=== PATIENT | female | born 1945 | race Caucasian/White ===

== ENCOUNTER 2018-03-05 10:37 | Emergency (ER) | payer OTHER ==
--- OUTSIDE RECORDS SUMMARY | 2018-03-05 10:40 | XMS REPORT | Summary of Care ---
:1945 Author Organization [facility] Address [address] [place], [place] [address]- Encounter HQ Encntr_alias([facility]) [id number] Date(s): 12/02/16 - 12/02/16 [facility] [address] [place] [address]- [phone] Discharge Disposition: Home or Self Care Attending Physician: Lonnie Abraham MD Referring Physician: Lonnie Abraham MD Vital Signs No data available for this section Problem List No data available for this section Allergies, Adverse Reactions, Alerts No data available for this section Medications No data available for this section Results No data available for this section Immunizations No data available for this section Procedures No data available for this section Social History No data available for this section Assessment and Plan No data available for this section
--- OUTSIDE RECORDS SUMMARY | 2018-03-05 10:40 | XMS REPORT | Continuity of Care Document ---
:1945 Author Organization Interface Problems Problem Status Onset Classification Date Comments Source Date Reported M54.5 M53.3 Active 11/28/19 [facility] 17 LOW BACK PAIN Active [facility] SACROCOCCYGEAL Active [facility] DISORDERS, NOT ELSEWHERE Medications Medication Details Route Status Patient Ordering Order Source Instructions Provider Date Allergies, Adverse Reactions, Alerts Substance Category Reaction Severity Reaction Status Date Comments Source type Reported Immunizations Immunization Date Given Site Status Last Updated Comments Source Results Order Results Value Reference Date Interpretation Comments Source Name Range Spine Spine PROCEDURE: MAGNETIC RESONANCE IMAGING OF THE SACRUM 12/02 - Sacrum wo Sacrum - [facility] contrast contrast MRI MRI REASON FOR EXAM: M54.5, M53.3. Read by: Benson Baron MD Dictated Date/time: 12/02/16 16:16 Electronically Signed by: Benson Baron MD 12/02/16 16:48 FINAL REPORT COMPARISON: Lumbar spine magnetic resonance imaging 12/02/2016. TECHNIQUE: Unenhanced axial, coronal and sagittal MR images of the sacrum were performed. FINDINGS: Findings in the visualized lower lumbar spine are described in the report for the lumbar spine magnetic resonance imaging performed the same day. There are mild degenerative changes of both sa croiliac joints. There is no demonstrable ankylosis or erosion. There is a subcentimeter cyst in the marrow of the medial aspect of the right ilium. There is approximately 1 to 2 mm posterior subluxatio n of the 1st coccygeal segment relative to the sacrum. There is no demonstrable fracture. There is a 7 mm cyst in the right ovary. There is a 1.2 cm cyst in the left ovary. There is trace fluid in the endometrial canal of T1 hyperintensity suggesting a proteinaceous content. There is a 5 mm uterine leiomyoma. There is diverticulosis of the visualized descending and sigmoid colon. There is no demonstrable abnormality of the urinary bladder. There is no demonstrable pelvic free fluid. IMPRESSION: 1. No demonstrable acute abnormality of the sacrum. 2. Mild degenerative changes of the sacroiliac joints. 3. Minimal posterior subluxation of the 1st coccygeal segment relative to the sacrum. 4. Small bilateral ovarian cysts. A short interval follow-up pelvis ultrasound is suggested in approximately 3 months for reassessment. 5. Trace fluid in the endometrial canal and a subcentimeter uterine leiomyoma. 6. Colonic diverticulosis. SL: 13 Spine Spine PROCEDURE: LUMBAR SPINE MAGNETIC RESONANCE IMAGING 12/02 - lumbar wo lumbar [facility] contrast contrast MRI MRI CLINICAL INDICATION: M54.5. Low back pain. Read by: Benson Baron MD Dictated Date/time: 12/02/16 15:34 Electronically Signed by: Benson Baron MD 12/02/16 16:13 FINAL REPORT COMPARISON: None. TECHNIQUE: Unenhanced axial and sagittal MR images of the lumbar spine were performed. FINDINGS: 5 nonrib-bearing lumbar vertebral bodies are assumed. The lumbar vertebral bodies are normally aligned. There are small anterior marginal osteophytes at all levels of the lumbar spine and visu alized lower thoracic spine. There is left-sided spondylolysis at L5. The discs are hydrated. There are acute/subacute compression fractures with marrow edema without retropulsion, the maximal degree of compression deformity estimated at approximately: 45% at T12; 40% at L1; 25% at L2; and 40% a t L3. There is chronic compression fracture of the superior vertebral endplate of L5 with maximal degree of compression deformity estimated at approximately 37% without retropulsion. There is no significant abnormality of the visualized retroperitoneal and paravertebral soft tissues. The conus medullaris terminates at the level of L1. The visualized lower thoracic spinal cord demonstrates normal signal intensity. T12-L1: Mild posterior disc space narrowing. Right posterolateral disc bulging measuring a maximal AP dimension of approximately 3 mm. Mild facet arthropathy. Mild to moderate bilateral foraminal narrowing. No significant spinal stenosis. L1-L2: Mild posterior disc space narrowing. Anterior annular fissure. Bilateral posterolateral disc bulging measuring a maximal AP dimension of approximately 3 mm. Mild facet arthropathy. Mild right for aminal narrowing. Mild to moderate left foraminal narrowing. No significant spinal stenosis. L2-L3: Mild posterior disc space narrowing. Anterior annular fissure. Bilateral posterolateral disc bulging measuring a maximal AP dimension of approximately 3 to 4 mm. Right posterolateral annular fiss ure. Mild facet arthropathy. Mild to moderate right foraminal narrowing. Mild left foraminal narrowing. No significant spinal stenosis. L3-L4: Mild posterior disc space narrowing. Anterior disc bulging. Anterior annular fissure. Broad-based posterior disc bulge/protrusion measuring a maximal AP dimension of approximately 4 mm with an an nular fissure. Moderate facet arthropathy. Mild thickening of the ligamentum flavum. Moderate bilateral foraminal narrowing. Mild to moderate spinal stenosis. L4-L5: Mild posterior disc space narrowing. Anterior annular fissure. Broad -based posterior disc bulging most pronounced in the posterolateral aspects measuring a maximal AP dimension of approximately 3 to 4 mm. Moderate facet arthropathy. Mild to moderate bilateral foraminal narrowing most pronounced medially. Mild spinal stenosis. L5-S1: Mild posterior disc space narrowing. Anterior annular fissure. Broad -based posterior disc bulging most pronounced on the right measuring a maximal AP dimension of approximately 3 to 4 mm. Mild fa cet arthropathy. Mild bilateral foraminal narrowing. No significant spinal stenosis. IMPRESSION: 1. Acute/subacute compression fractures without retropulsion from T12 through L3 as described above with the maximal degree of compression deformity at T12 estimated at 45%. 2. Chronic compression fracture of L5 without retropulsion estimated at 37% . 3. Hermleigh spondylosis and facet arthropathy. 4. Multilevel posterior disc space narrowing, posterior disc bulging/ protrusions and foraminal narrowing as described above. 5. Mild to moderate spinal stenosis at L3-L4. 6. Mild spinal stenosis at L4-L5. 7. Left-sided spondylolysis at L5. SL: 13 Vital Signs Vital Sign Value Date Comments Source Encounters Location Location Encounter Encounter Reason Attending ADM DC Status Source Details Type Number For Provider Date Date Visit [facility] [id number] Lonnie 12/02 12/03 RICHY Abraham /2016 [facility] Procedures Procedure Code Date Perfomer Comments Source
--- NOTE | 2018-03-05 11:56 | ER ---
Nurse's Notes [facility] Name: Trisha Senior Age: 72 yrs Sex: Female : 1945 Arrival Date: 03/05/2018 Time: 10:41 Bed 7 Private MD: Kendrick Amaya E Diagnosis: Cutaneous abscess of buttock Presentation: 03/05 10:42 Presenting complaint: Patient states: i have a pimple size abscess on my R buttocks hj that's been there for weeks and its getting bigger and i tried to pop it up and i cant, its hard now; reports on and off fever; denies nausea and vomiting;. Transition of care: patient was not received from another setting of care. Onset of symptoms was March 05, 2018. Risk Assessment: Do you want to hurt yourself or someone else? Patient reports no desire to harm self or others. Initial Sepsis Screen: Does the patient meet any 2 criteria? No. Patient's initial sepsis screen is negative. Does the patient have a suspected source of infection? Yes: Skin breakdown/wound. Care prior to arrival: None. 10:42 Method Of Arrival: Ambulatory 10:42 Acuity: DAVID 4 hj Triage Assessment: 10:46 General: Appears in no apparent distress. uncomfortable, Behavior is calm, cooperative, hj appropriate for age. Pain: Complains of pain in right gluteus ethel Pain currently is 5 out of 10 on a pain scale. Historical: - Allergies: 10:46 No Known Allergies; hj - Home Meds: 10:46 Albuterol Inhl [Active]; lorazepam 1 mg Oral tab [Active]; propranolol 40 mg Oral tab 1 hj tab 2 times per day [Active]; - PMHx: 10:46 Anxiety; COPD; hj - PSHx: 10:46 Knee surgery; Tubal ligation; hj - Immunization history:: Adult Immunizations not up to date. - Social history:: Smoking status: Patient uses tobacco products, smokes one-half pack cigarettes per day, Patient uses alcohol, but reports only rare drinking. - Ebola Screening: : Patient negative for fever greater than or equal to 101.5 degrees Fahrenheit, and additional compatible Ebola Virus Disease symptoms Patient denies exposure to infectious person Patient denies travel to an Ebola-affected area in the 21 days before illness onset. - Family history:: not pertinent. Screenin:47 Abuse screen: Denies threats or abuse. Denies injuries from another. Nutritional hj screening: No deficits noted. Tuberculosis screening: No symptoms or risk factors identified. Fall Risk None identified. Assessment: 11:00 General: Appears in no apparent distress. uncomfortable, Behavior is calm, cooperative, jl7 appropriate for age. Pain: Complains of pain in right gluteus ethel Pain does not radiate. Pain currently is 5 out of 10 on a pain scale. Neuro: Level of Consciousness is awake, alert, obeys commands, Oriented to person, place, time, situation. Cardiovascular: Patient's skin is warm and dry. Respiratory: Airway is patent Respiratory effort is even, unlabored, Respiratory pattern is regular, symmetrical. Derm: Skin is pink, warm \T\ dry. Abscess located on right gluteus ethel is quarter sized, has no drainage, is red. 12:00 Reassessment: Patient and/or family updated on plan of care and expected duration. Pain jl7 level reassessed. Patient is alert, oriented x 3, equal unlabored respirations, skin warm/dry/pink. 12:15 Reassessment: Pt will be discharged once Dr. Escalante lances abscess. jl7 Vital Signs: 10:47 BP 141 / 85; Pulse 83; Resp 18; Temp 98.4(O); Pulse Ox 96% on R/A; Weight 62.6 kg; hj Height 5 ft. 6 in. (167.64 cm); Pain 5/10; 13:25 BP 139 / 86; Pulse 80; Resp 16; Pulse Ox 96% ; jl7 10:47 Body Mass Index 22.28 (62.60 kg, 167.64 cm) ED Course: 10:41 Patient arrived in ED. mr 10:42 Kendrick Amaya MD is Private Physician. mr 10:44 Triage completed. hj 10:47 Arm band placed on left wrist. hj 10:47 Patient has correct armband on for positive identification. Placed in gown. Bed in low hj position. Call light in reach. Side rails up X 1. 10:51 Lennox Tinajero RN is Primary Nurse. jl7 10:57 Kolby Escalante MD is Attending Physician. ele 11:55 Kendrick Amaya MD is Referral Physician. eel 11:55 Valentin Neil MD is Referral Physician. ele 12:45 Assist provider with I \T\ D: of an abscess on right buttocks Set up I\T\D tray. Performed jl 7 by Kolby Escalante MD Wound packed. iodoform gauze, Dressing with 4X4s, Patient tolerated well. 13:14 Patient did not have IV access during this emergency room visit. jl7 Administered Medications: 12:09 Drug: Bactrim (160 mg-800 mg (DS) 1 tablet Route: PO; jl7 13:12 Follow up: Response: No adverse reaction jl7 12:09 Drug: Doxycycline 200 mg Route: PO; jl7 13:12 Follow up: Response: No adverse reaction 7 12:40 Drug: Lidocaine-Epinephrine -1%: (1:100,000) 10 ml {Note: administered by Dr. ronnell Escalante.} Volume: 20 ml; Route: Infiltration; 13:12 Follow up: Response: No adverse reaction jl7 Outcome: 11:56 Discharge ordered by . [facility] 13:24 Discharged to home ambulatory. 7 13:24 Condition: stable 13:24 Discharge instructions given to patient, Instructed on discharge instructions, follow up and referral plans. medication usage, Demonstrated understanding of instructions, follow-up care, medications, Prescriptions given X 3. 13:26 Patient left the ED. jl7 Signatures: Kolby Escalante MD MD cha Rivera, Maria mr Joaquin, Henry, RN RN Lennox Hayes RN RN jl7 Corrections: (The following items were deleted from the chart) 10:45 10:42 Presenting complaint: Patient states: i have a pimple size abscess on my R hj buttocks and its getting bigger and i tried pop it up and i cant, its hard now; reports on and off fever; denies nausea and vomiting; 10:49 10:47 Pulse 83bpm; Resp 18bpm; Pulse Ox 96% RA; Temp 98.4F Oral; 62.6 kg; Height 5 ft. hj 6 in.; BMI: 22.2; Pain 5/10; hj 11:17 10:42 Presenting complaint: Patient states: i have a pimple size abscess on my R hj buttocks that's been there for weeks and its getting bigger and i tried pop it up and i cant, its hard now; reports on and off fever; denies nausea and vomiting; 13:12 12:40 Lidocaine-Epinephrine -1%: (1:100,000) 10 ml 20 ml Infiltration 20 ml jl7 jl7
--- NOTE | 2018-03-05 11:57 | EDPHYS ---
Physician Documentation [facility] Name: Trisha Senior Age: 72 yrs Sex: Female : 1945 Arrival Date: 03/05/2018 Time: 10:41 Bed 7 Private MD: Kendrick Amaya E ED Physician Kolby Escalante HPI: 03/05 11:52 This 72 yrs old Female presents to ER via Ambulatory with complaints of ele Abscess. 11:52 The patient presents with an abscess of the buttocks, The patient presents with ele cellulitis of the buttocks, the patient presents with a swollen area of the buttocks. Description: The affected area is small, localized, erythematous. Onset: The symptoms/episode began/occurred 3 day(s) ago. Possible cause(s): unknown. Associated signs and symptoms: The patient has no apparent associated signs or symptoms. Modifying factors: the symptoms are alleviated by remaining still, sitz bath, the symptoms are aggravated by movement. Severity of symptoms: At their worst the symptoms were mild, in the emergency department the symptoms are unchanged. The patient has not experienced similar symptoms in the past. Historical: - Allergies: 10:46 No Known Allergies; hj - Home Meds: 10:46 Albuterol Inhl [Active]; lorazepam 1 mg Oral tab [Active]; propranolol 40 mg Oral tab 1 hj tab 2 times per day [Active]; - PMHx: 10:46 Anxiety; COPD; hj - PSHx: 10:46 Knee surgery; Tubal ligation; hj - Immunization history:: Adult Immunizations not up to date. - Social history:: Smoking status: Patient uses tobacco products, smokes one-half pack cigarettes per day, Patient uses alcohol, but reports only rare drinking. - Ebola Screening: : Patient negative for fever greater than or equal to 101.5 degrees Fahrenheit, and additional compatible Ebola Virus Disease symptoms Patient denies exposure to infectious person Patient denies travel to an Ebola-affected area in the 21 days before illness onset. - Family history:: not pertinent. ROS: 11:52 Constitutional: Negative for fever, chills, and weight loss, Eyes: Negative for injury, ele pain, redness, and discharge, ENT: Negative for injury, pain, and discharge, Neck: Negative for injury, pain, and swelling, Cardiovascular: Negative for chest pain, palpitations, and edema, Respiratory: Negative for shortness of breath, cough, wheezing, and pleuritic chest pain, Abdomen/GI: Negative for abdominal pain, nausea, vomiting, diarrhea, and constipation, Back: Negative for injury and pain, : Negative for injury, bleeding, discharge, and swelling, MS/Extremity: Negative for injury and deformity, Neuro: Negative for headache, weakness, numbness, tingling, and seizure, Psych: Negative for depression, anxiety, suicide ideation, homicidal ideation, and hallucinations, Allergy/Immunology: Negative for hives, rash, and allergies, Endocrine: Negative for neck swelling, polydipsia, polyuria, polyphagia, and marked weight changes, Hematologic/Lymphatic: Negative for swollen nodes, abnormal bleeding, and unusual bruising. 11:52 Skin: Positive for swelling, of the buttocks. Exam: 11:52 Constitutional: This is a well developed, well nourished patient who is awake, alert, ele and in no acute distress. Head/Face: Normocephalic, atraumatic. Eyes: Pupils equal round and reactive to light, extra-ocular motions intact. Lids and lashes normal. Conjunctiva and sclera are non-icteric and not injected. Cornea within normal limits. Periorbital areas with no swelling, redness, or edema. ENT: Nares patent. No nasal discharge, no septal abnormalities noted. Tympanic membranes are normal and external auditory canals are clear. Oropharynx with no redness, swelling, or masses, exudates, or evidence of obstruction, uvula midline. Mucous membranes moist. Neck: Trachea midline, no thyromegaly or masses palpated, and no cervical lymphadenopathy. Supple, full range of motion without nuchal rigidity, or vertebral point tenderness. No Meningismus. Chest/axilla: Normal chest wall appearance and motion. Nontender with no deformity. No lesions are appreciated. Cardiovascular: Regular rate and rhythm with a normal S1 and S2. No gallops, murmurs, or rubs. Normal PMI, no JVD. No pulse deficits. Respiratory: Lungs have equal breath sounds bilaterally, clear to auscultation and percussion. No rales, rhonchi or wheezes noted. No increased work of breathing, no retractions or nasal flaring. Abdomen/GI: Soft, non-tender, with normal bowel sounds. No distension or tympany. No guarding or rebound. No evidence of tenderness throughout. Back: No spinal tenderness. No costovertebral tenderness. Full range of motion. Female : Normal external genitalia. MS/ Extremity: Pulses equal, no cyanosis. Neurovascular intact. Full, normal range of motion. Neuro: Awake and alert, GCS 15, oriented to person, place, time, and situation. Cranial nerves II-XII grossly intact. Motor strength 5/5 in all extremities. Sensory grossly intact. Cerebellar exam normal. Normal gait. Psych: Awake, alert, with orientation to person, place and time. Behavior, mood, and affect are within normal limits. 11:52 Skin: abscess, that is small, cellulitis, that is minimal, that is mild, induration, that is moderate is noted. Vital Signs: 10:47 BP 141 / 85; Pulse 83; Resp 18; Temp 98.4(O); Pulse Ox 96% on R/A; Weight 62.6 kg; Height 5 ft. 6 in. (167.64 cm); Pain 5/10; 13:25 BP 139 / 86; Pulse 80; Resp 16; Pulse Ox 96% ; jl7 10:47 Body Mass Index 22.28 (62.60 kg, 167.64 cm) Procedures: 11:52 I \T\ D: Incision and drainage was performed for an abscess of the right Prepped with [facility] Betadine, Anesthetized with 10 ml's 1% Lidocaine w/ Epi. Incised with #11 blade. Drained small amount moderate amount purulent fluid. Packed with iodoform gauze, Dressing: non-Adherent dressing, the patient tolerated the procedure well. MDM: 10:57 Patient medically screened. [facility] 11:52 Data reviewed: vital signs, nurses notes, lab test result(s). [facility] 03/05 11:52 Order name: Blood Glucose Level; Complete Time: 12:09 [facility] 03/05 11:52 Order name: Dressing - Wound; Complete Time: 13:11 [facility] 03/05 11:52 Order name: Gloves, Sterile; Complete Time: 12:09 [facility] 03/05 11:52 Order name: Setup Suture Tray; Complete Time: 12:09 [facility] Administered Medications: 12:09 Drug: Bactrim (160 mg-800 mg (DS) 1 tablet Route: PO; [facility] 13:12 Follow up: Response: No adverse reaction [facility] 12:09 Drug: Doxycycline 200 mg Route: PO; jl7 13:12 Follow up: Response: No adverse reaction [facility] 12:40 Drug: Lidocaine-Epinephrine -1%: (1:100,000) 10 ml {Note: administered by Dr. ronnell Escalante.} Volume: 20 ml; Route: Infiltration; 13:12 Follow up: Response: No adverse reaction jl7 Disposition: 03/05/18 11:56 Discharged to Home. Impression: Cutaneous abscess of buttock. - Condition is Stable. - Discharge Instructions: Abscess, Incision and Drainage, Sitz Bath, Abscess, [id number]. - Prescriptions for Tylenol- Codeine #3 300-30 mg Oral Tablet - take 2 tablet by ORAL route every 6 hours As needed; 30 tablet. Doxycycline Hyclate 100 mg Oral Tablet - take 1 tablet by ORAL route every 12 hours; 20 tablet. Bactrim DS 800- 160 mg Oral Tablet - take 1 tablet by ORAL route every 12 hours for 10 days; 20 tablet. - Medication Reconciliation Form, Thank You Letter, Antibiotic Education, Prescription Opioid Use form. - Follow up: Kendrick Amaya MD; When: 2 - 3 days; Reason: Recheck today's complaints, Continuance of care, Re-evaluation by your physician. Follow up: Valentin Neil MD; When: 2 - 3 days; Reason: Recheck today's complaints, Continuance of care, Re-evaluation by your physician. - Problem is new. - Symptoms have improved. Signatures: Kolby Escalante MD MD cha Joaquin, Henry, RN RN hj Leal, Jahala, RN RN jl7 Corrections: (The following items were deleted from the chart) 13:26 11:56 03/05/2018 11:56 Discharged to Home. Impression: Cutaneous abscess of buttock. jl7 Condition is Stable. Forms are Medication Reconciliation Form, Thank You Letter, Antibiotic Education, Prescription Opioid Use. Follow up: Kendrick Amaya; When: 2 - 3 days; Reason: Recheck today's complaints, Continuance of care, Re-evaluation by your physician. Follow up: Valentin Neil; When: 2 - 3 days; Reason: Recheck today's complaints, Continuance of care, Re-evaluation by your physician. Problem is new. Symptoms have improved. ele
[2018-03-05] MEDS ORDERED: LIDOCAINE 1% MPF 5 ML VIAL ONE (12:05)
[2018-03-05] MEDS ORDERED: DOXYCYCLINE 100 MG CAP PO ONE (12:05)
[2018-03-05] MEDS ORDERED: SMZ./TMP. 800/160 MG TABLET ONE (12:05)
[2018-03-05] MEDS ORDERED: LIDOCAINE 1% W/EPI 1:100,000 MDV 50 ML VIAL ONE (12:40)
[2018-03-05 13:30] VITALS: TEMP 98.4; O2SAT 96
[2018-03-05 13:31] VITALS: BP 139/86
== END 2018-03-05 13:26 | disposition home or self-care (01) ==
LOC: ER 10:37
PROC: 0H98XZZ Drainage of Buttock Skin, External Approach (ICD-10-PCS; principal; 2018-03-05)
DX: L02.31 Cutaneous abscess of buttock (principal); J44.9 Chronic obstructive pulmonary disease, unspecified; F17.210 Nicotine dependence, cigarettes, uncomplicated
CPT/HCPCS: 82962; 99283

== ENCOUNTER 2019-08-01 10:27 | Emergency (ER) | payer OTHER ==
--- OUTSIDE RECORDS SUMMARY | 2019-08-01 10:29 | XMS REPORT ---
:1945 [facility] Address [address] [place] [address] [address]. [address] [place] [address] Care Team Providers Name Role Phone Unavailable Unavailable Unavailable Problems This patient has no known problems. Allergies, Adverse Reactions, Alerts This patient has no known allergies or adverse reactions. Medications This patient has no known medications.
--- OUTSIDE RECORDS SUMMARY | 2019-08-01 10:29 | XMS REPORT | Summary of Care ---
:1945 Author Organization [address] [address] Care Team Providers Name Role Phone Kendrick Amaya Primary Care Provider Encounter Details Date Type Department Care Team Description 03/19/2019 Case Management [facility] Physical Nina Florence, CHRISTIANO Therapy- [address] 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 [address] [place] [address] [address] [place] [phone] Allergies No Known Allergiesdocumented as of this encounter (statuses as of 03/19/2019) Medications Medication Sig Dispensed Refills Start Date End Date Status LORazepam (ATIVAN) 1 Take 1 mg by 0 Active mg tablet mouth. PROPRANOLOL HCL Take by mouth. 0 Active (PROPRANOLOL ORAL) ondansetron 4 mg Take 1 tablet by 20 tablet 0 09/08/2017 Active tablet mouth every 8 (eight) hours as needed for Nausea and Vomiting (N/V). documented as of this encounter (statuses as of 03/19/2019) Active Problems No known active problemsdocumented as of this encounter (statuses as of 2018) Social History Tobacco Use Types Packs/Day Years Used Date Never Assessed Sex Assigned at Date Recorded Not on file Job Start Date Occupation Industry Not on file Not on file Not on file Travel History Travel Start Travel End No recent travel history available. documented as of this encounter Last Filed Vital Signs Not on filedocumented in this encounter Progress Notes Nina Florence PTA - 03/19/2019 1:46 PM CDT7/ Appointment time: 1:00 PM Pt arrived at: 1:18 PM Physical Therapy Missed Visit Pt missed a scheduled therapy appointment today. Pt states she was late because she had an errand to run first. Pt is aware of next scheduled appointment. Thursday, March 21, 2019 at 1:00 PM. Nina Florence PTA [place] Lic#[id number] Supervised by: Rubina Long PT [facility] Dept. [phone] (phone) documented in this encounter Plan of Treatment Date Type Specialty Care Team Description 03/21/2019 Ancillary Visit Physical Therapy Juan M Washburn MD [address] [facility] [address] [place] [address] [phone] Nina Florence PTA [address] [place] [address] 03/26/2019 Ancillary Visit Physical Therapy Nina Florence PTA [address] [place] [address] 03/28/2019 Ancillary Visit Physical Therapy Nina Florence, [employer]ITORY MANAGER [address] [place] [address] Health Maintenance Due Date Last Done Comments DTaP,Tdap,and Td Vaccines (1 - Tdap) 1965 COLONOSCOPY 1996 Zoster Recombinant Vaccine (SHINGRIX) (1 of 2) 1996 MAMMOGRAM 12/23/2009 12/23/2008 Medicare Wellness Visit 2011 Osteoporosis Screening 2011 PNEUMOCOCCAL VACCINES 65+ (1 of 2 - PCV13) 2011 INFLUENZA VACCINE 04/20/2019 HEPATITIS C (HCV) SCREEN Completed 09/03/2008 documented as of this encounter Results Not on filedocumented in this encounter Insurance Payer Benefit Plan Subscriber ID Effective Phone Address Type / Group Dates [facility] [id number] 2018-Pres Medicare Adv HEALTHCARE COMPLETE ent PPO MEDICARE CHOICE [facility] MEDICAID OF xxxxxxxxx 2019-Pres [phone] [address] Medicaid [place] ent [id number] [place] [address] documented as of this encounter
--- OUTSIDE RECORDS SUMMARY | 2019-08-01 10:29 | XMS REPORT | Summary of Care ---
:1945 Author Organization [facility] Address [address] [place] [address] Care Team Providers Name Role Phone Kendrick Amaya Primary Care Provider Reason for Visit Reason Comments Follow-up (Routine) Status Reason Specialty Diagnoses / Referred By Referred To Procedures Contact Contact Authorized Physical Therapy Procedures Kendrick Amaya [facility], CONSULT/REFERRAL E PT PHYSICAL THERAPY [address] [place] PHYSICAL [facility] THERAPY EVALUATION BREN [address] [place], [place] LOW COMPLEX 20 [place], [address] [place] [address] [place] PHYSICAL Phone: THERAPY EVALUATION [phone] MOD COMPLEX 30 Fax: [facility] [phone] [place] PHYSICAL THERAPY EVALUATION HIGH COMPLEX 45 [place] THERAPEUTIC EXERCISES [place] NEUROMUSC REEDUCAT,1+ AREAS, EA 15 MIN [place] MANUAL THER TECH,1+REGIONS,EA 15 MIN [place] THERAPEUT ACTVITY DIRECT PT CONTACT EACH 15 MIN [place] SELF-CARE/HOME MGMT TRAINING EACH 15 MINUTES INITIAL EVALUATION Encounter Details Date Type Department Care Team Description 03/21/2019 Ancillary Visit [facility] Juan M Washburn MD [address] [facility] BC8930 [place], [place] [id number] Neck pain (Primary Dx); Physical Therapy- Brigitte Parra, PT [address] [place] [id number] Chronic pain of both shoulders; [place] Upper back pain, chronic; 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 Muscle weakness (generalized); Building Poor posture [address] [place] [address] [address] [place] [address] Allergies No Known Allergiesdocumented as of this encounter (statuses as of 03/26/2019) Medications Medication Sig Dispensed Refills Start Date [...] as of this encounter (statuses as of 03/26/2019) Active Problems No known active problemsdocumented as [...] on filedocumented in this encounter Progress Notes Brigitte Parra, PT - 03/21/2019 1:00 PM CDT Physical Therapy Outpatient Progress Note Date: March 21, 2019 Time: 1:08 PM Diagnosis: M54.2 Neck pain (primary encounter diagnosis) M25.511, G89.29, M25.512 Chronic pain of both shoulders M54.9, G89.29 Upper back pain, chronic M62.81 Muscle weakness (generalized) R29.3 Poor posture IDENTIFYING DATA: Patient name: Trisha Senior : 1945 Primary care physician: Kendrick Amaya? ?? S: Patient reports does not rate/10 pain before tx, and does not rate/10 after tx. States everyday is busy.Today she got up eat breakfast and run errands, no report of pain. O: See documentation flowsheet for treatment details. Exercise Flow Sheet Precautions:Fall POC Due:Apr 25 or visit Date: 03/14 03/21 Bike L2-6' Stretching: SKC 5"x 10ea DKC Piriformis 30" x 3 HS stretch 3 x 30" Trunk Rotations 10x ea Exercises: Pelvic Tilts 10x Bridging 10x Marching with Abd bracing 10xea Dying bug-alt UE/LE 10x SLR's 10x Prone on elbows Prone press ups Lat Pull Downs Rows Nigerian Ball: Seated on ball with tilt Alt UE Alt LE/Marching Alt UE/LE Bridging w/ feet on ball Prone walkout plank SI Mobs (prn) MHP (prn) 10'neck/LB CP (prn) Provider Initials Re-eval MCB 7 MCB 8 A: Patient has difficulty in breathing occasionally during therapeutic exercises that requires rest and per patient she has COPD but able to perform therapeutic exercises slower than usual. After PT patient appears surprised and upset of not having ultrasound today and PT explained to patient that no ultrasound today for it's not indicated for no complaint of pain,we work on exercises and time didn'tallow.She also stated she feels the same when she came in.Pt with guarded progress toward PT goals overall. Presents with guarded response to services provided today. Patient made an statement to information receptionist after PT as follows " She (PT) didn't do what she's supposed to do". P: Physical Therapy with emphasis on Functional mobility training, Modalities ( PRN),Gait training, Patient/Family/Caregiver education, Therapeutic exercise, Manual Therapy (PRN),Neuromuscular Re-Education to address Decreased strength, ROM deficits, Safety awareness deficits and Pain to restore pt's ability increase flexibility, strength of the trunk BUE and BLE Frequency: 1- 2x/wk Duration: 4-6 wks Patient- Family Teaching: Patient provided with preferred teaching of verbal information on POC. Shows readiness to learn. Verbal instruction teaching provided. Individual is able to read and verbalizes understanding of teaching provided. Total Timed Tx Codes in Minutes: 52 Min Total Treatment Time in Minutes: 55Min Brigitte Parra,PT [place] License: [id number] documented in this encounter Plan of Treatment Date Type Specialty Care Team Description 03/26/2019 Ancillary Visit [place] [address] [place] [phone] Nina Florence, [facility] [address] [place] [address] 03/28/2019 Ancillary Visit Physical Therapy Oneil Esquivel MD [address] [place] [phone] Nina Florence, EQUIPMENT MANAGER [address] [place] [address] 04/02/2019 Ancillary Visit Physical Therapy Dinora Pacheco, PT [address] [place] [address] 04/04/2019 Ancillary Visit Physical Therapy Nina Florence, EQUIPMENT MANAGER [address] [place] [address] Health Maintenance Due Date Last Done Comments [...] Results Not on filedocumented in this encounter Visit Diagnoses Diagnosis Neck pain - Primary Cervicalgia Chronic pain of both shoulders Pain in joint, shoulder region Upper back pain, chronic Backache, unspecified Muscle weakness (generalized) Poor posture Abnormal posture documented in this encounter Insurance Payer Benefit Plan Subscriber ID Effective Phone Address Type / Group Dates UNITED UHC MEDICARE [id number] 2018-Pres Medicare Adv HEALTHCARE COMPLETE ent PPO MEDICARE CHOICE ADVANTAGE [facility] MEDICAID OF xxxxxxxxx 2019-Pres [phone] Medicaid [place] ent [id number] [place] [address] [phone] (Work) documented as of this encounter
--- OUTSIDE RECORDS SUMMARY | 2019-08-01 10:29 | XMS REPORT | Summary of Care ---
:1945 Author Organization [facility] Address [address] [place] [address] Care Team Providers Name Role Phone Kendrick Amaya Primary Care Provider Reason for Visit Reason Comments Follow-up (Routine) Status Reason Specialty Diagnoses / Referred By Referred To Procedures Contact Contact Authorized Physical Therapy Procedures Kendrick Amaya [facility], CONSULT/REFERRAL E PT PHYSICAL THERAPY [address] [place] PHYSICAL [facility] THERAPY EVALUATION BREN [address] [place], [place] LOW COMPLEX 20 [place], [address] [place] [address] [place] PHYSICAL Phone: THERAPY EVALUATION [phone] MOD COMPLEX 30 Fax: [facility] [phone] [place] PHYSICAL THERAPY EVALUATION HIGH COMPLEX 45 [place] THERAPEUTIC EXERCISES [place] NEUROMUSC REEDUCAT,1+ AREAS, EA 15 MIN [place] MANUAL THER TECH,1+REGIONS,EA 15 MIN [place] THERAPEUT ACTVITY DIRECT PT CONTACT EACH 15 MIN [place] SELF-CARE/HOME MGMT TRAINING EACH 15 MINUTES INITIAL EVALUATION Encounter Details Date Type Department Care Team Description 04/04/2019 Ancillary Visit [facility] Oneil Esquivel MD [address] [place] [address] Chronic pain of both shoulders (Primary Dx); Physical Therapy- Nina Florence, [facility] [address] [place] [address] Upper back pain, chronic; Inderjit Muscle weakness (generalized); 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 Poor posture Building [address] [place] [address] [address] [place] [phone] Allergies No Known Allergiesdocumented as of this encounter (statuses as of 04/04/2019) Medications Medication Sig Dispensed Refills Start Date [...] as of this encounter (statuses as of 04/04/2019) Active Problems No known active problemsdocumented as [...] filedocumented in this encounter Progress Notes Nina Florence, OPTICAL INSTRUMENT ASSEMBLER - 04/04/2019 1:00 PM CDT Physical Therapy Outpatient Progress Note Date: April 04, 2019 Time: 1:00 PM Diagnosis: M25.511, G89.29, M25.512 Chronic pain of both shoulders (primary encounter diagnosis) M54.9, G89.29 Upper back pain, chronic M62.81 Muscle weakness (generalized) R29.3 Poor posture IDENTIFYING DATA: Patient name: Trisha Senior : 1945 Primary care physician: Kendrick Amaya? ?? S: Patient does not rate pain before tx. During the ultrasound, patient requested it be performed on the left side of her neck since she had been having pain there. O: See documentation flowsheet for treatment details. Exercise Flow Sheet Precautions:Fall, Memory POC Due: Next visit Date: 03/14 03/21 03/26 04/04 Bike L2-6' NS L2 x6' Stretching: SKC 5"x 10ea 3x30"ea 3x30"ea DKC Piriformis 30" x 3 3x30"ea 3x30"ea HS stretch 3 x 30" 3x30"ea 3x30"ea Trunk Rotations 10x ea --- Exercises: Pelvic Tilts 10x 5"x10 5"x10 Bridging 10x x10 x10 Marching with Abd bracing 10xea x10ea x10ea Dying bug-alt UE/LE 10x -- --- SLR's 10x x10ea x10ea Prone on elbows Prone press ups Lat Pull Downs Rows [place] Ball: Seated on ball with tilt Alt UE Alt LE/Marching Alt UE/LE US to thoracic back 5' @ 1MHz 1 Wcm2 5' @ 1MHz 1 Wcm2 neck MHP (prn) 10'neck/LB 10' LB &neck 10' LB &neck CP (prn) Provider Initials Re-eval MCB 02/17 MCB 03/21 MB 04/22 MB 05/23 HEP: Continue current HEP as previously ordered. Pt exhibits noncompliance because she needs too many instructions for performance of stretches. A: Patient has occasional difficulty breathing during supine exercises that causes her to cough(smoker's cough). US last 5 min of session to neck as requested by pt. Pt required cues for stretches and exercises. Pt tolerated treatment fair+. Reassessment at next visit. P: Physical Therapy with emphasis on Functional mobility training, Modalities ( PRN),Gait training, Patient/Family/Caregiver education, Therapeutic exercise, Manual Therapy (PRN),Neuromuscular Re-Education to address Decreased strength, ROM deficits, Safety awareness deficits and Pain to restore pt's ability increase flexibility, strength of the trunk BUE and BLE Will add/advance exercises as able. Frequency: 1- 2x/wk Duration: 4 weeks Patient- Family Teaching: Patient provided with preferred teaching of verbal information on POC. Shows readiness to learn. Verbal instruction teaching provided. Individual is able to read and verbalizes understanding of teaching provided. Nina Florence PTA [place] Lic#[id number] Supervised by: Dinora Hernandez PT [facility] Dept. [phone] (phone) Total Timed Tx Codes in Minutes: 40 Min Total Treatment Time in Minutes: 50 Min documented in this encounter Plan of Treatment Date Type Specialty Care Team Description 04/11/2019 Ancillary Visit Physical Therapy Brigitte Parra, PT [address] [place] [address] Health Maintenance Due Date Last Done Comments DTaP,Tdap,and Td Vaccines (1 - Tdap) 1965 COLONOSCOPY 1996 Zoster Recombinant Vaccine (SHINGRIX) (1 of 2) 1996 MAMMOGRAM 12/23/2009 12/23/2008 Medicare Wellness Visit 2011 Osteoporosis Screening 2011 PNEUMOCOCCAL VACCINES 65+ (1 of 2 - PCV13) 2011 INFLUENZA VACCINE (#1) 2019 HEPATITIS C (HCV) SCREEN Completed 09/03/2008 documented as of this encounter Results Not on filedocumented in this encounter Visit Diagnoses Diagnosis Chronic pain of both shoulders - Primary Pain in joint, shoulder region Upper back pain, chronic Backache, unspecified Muscle weakness (generalized) Poor posture Abnormal posture documented in this encounter Insurance Payer Benefit Plan Subscriber ID Effective Phone Address Type / Group Dates UNITED UHC MEDICARE [id number] 2018-Pres Medicare Adv HEALTHCARE COMPLETE ent PPO MEDICARE CHOICE ADVANTAGE [facility] MEDICAID OF xxxxxxxxx 2019-Pres [phone] Medicaid [place] ent [id number] [place] [address] [phone] (Work) documented as of this encounter
--- OUTSIDE RECORDS SUMMARY | 2019-08-01 10:29 | XMS REPORT | Summary of Care ---
:1945 Author Organization [facility] Address [address] [place] [address] Care Team Providers Name Role Phone Kendrick Amaya Primary Care Provider Reason for Visit Reason Comments Re-evaluation (Routine) Status Reason Specialty Diagnoses / Referred By Referred To Procedures Contact Contact Authorized Physical Therapy Procedures Kendrick Amaya [facility], CONSULT/REFERRAL E PT PHYSICAL THERAPY [address] [place] PHYSICAL [facility] THERAPY EVALUATION BREN [address] [place], [place] LOW COMPLEX 20 [place], [address] [place] [address] [place] PHYSICAL Phone: THERAPY EVALUATION [phone] MOD COMPLEX 30 Fax: [facility] [phone] [place] PHYSICAL THERAPY EVALUATION HIGH COMPLEX 45 [place] THERAPEUTIC EXERCISES [place] NEUROMUSC REEDUCAT,1+ AREAS, EA 15 MIN [place] MANUAL THER TECH,1+REGIONS,EA 15 MIN [place] THERAPEUT ACTVITY DIRECT PT CONTACT EACH 15 MIN [place] SELF-CARE/HOME MGMT TRAINING EACH 15 MINUTES INITIAL EVALUATION Encounter Details Date Type Department Care Team Description 03/14/2019 Ancillary Visit [facility] Oneil Esquivel MD [address] [place] [address] Neck pain (Primary Dx); Physical Therapy- Brigitte Parra, PT [address] [place] [id number] Chronic pain of both shoulders; [place] Upper back pain, chronic; 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 [place] [phone] Allergies No Known Allergiesdocumented as of this [...] encounter Progress Notes Brigitte Parra, PT - 03/14/2019 1:00 PM CDT Exercise Flow Sheet Diagnosis: M54.2 Neck pain (primary encounter diagnosis) M25.511, G89.29, M25.512 Chronic pain of both shoulders M54.9, G89.29 Upper back pain, chronic M62.81 Muscle weakness (generalized) R29.3 Poor posture Precautions:Fall POC Due:Apr 25 or visit Date: 03/14 Stretching: C DKC Piriformis HS stretch Trunk Rotations Exercises: Pelvic Tilts Bridging Marching with Abd bracing Dying bug-alt UE/LE SLR's Prone on elbows Prone press ups Lat Pull Downs Rows English Ball: Seated on ball with tilt Alt UE Alt LE/Marching Alt UE/LE Bridging w/ feet on ball Prone walkout plank SI Mobs (prn) MHP (prn) CP (prn) Provider Initials Re-eval MCB Brigitte Cano PT - 03/14/2019 1:00 PM CDT OP PT Re-evaluation & Progress Note Date: March 14, 2019 Time: 1:06 PM Diagnosis: M54.2 Neck pain (primary encounter diagnosis) M25.511, G89.29, M25.512 Chronic pain of both shoulders M54.9, G89.29 Upper back pain, chronic M62.81 Muscle weakness (generalized) R29.3 Poor posture IDENTIFYING DATA: Patient name: Trisha Senior : 1945 Primary care physician: Kendrick Amaya? Precautions: Fall Number of Treatments To date: 7 S: Patient stated that she has pain on her back and neck. Patient didn't rate pain. Per patient ultrasound/hot packs helps with her neck/back pain. O: Patient came in to PT without AD. Cognition: Alert, Oriented x 3 Initial Evaluation Measurements; ROM: (P=Pain) (Note ROM) Neck Flex WFL Ext WFL Retraction WFL Protraction WFL R L Rotation WFL WFL Sidebend WFL WFL Side glide NT NT Muscle Test: Neck R L Flexion 4/5 4/5 Extension 4/5 4/5 Rotation 4/5 4/5 Side Bend 4/5 4/5 Special Tests Compression: (-) Shoulder Evaluation Observation: Palpation: TTP on neck, both shoulder and upper back Bony prominences: WFL Crepitus: none Skin: intact Posture: kyphotic,stooped Dominate UE: RUE Position ROM Shoulder Right Left Pain Manual Muscle Test Right Left sitting Flexion WFL WFL (+) R>L Flexors 4/5 4/5 Extension WFL WFL Extensors 4/5 4/5 Abduction WFL WFL Abductors 4/5 4/5 Adduction WFL WFL Adductions 4/5 4/5 External rotation WFL WFL External rotation 4/5 4/5 Internal rotation WFL WFL Internal rotation 4/5 4/5 Functional movements: Both R & L Hand behind back: able Hand behind neck: able Hand to axilla: able Hand to opposite shoulder: able Upper quadrant scan Cervical: WFL Scapula: WFL Elbow: WFL Wrist: WFL Special Tests Empty cans/supraspinatus: R (-), L (-) ROM: (P=Pain) (Note ROM) Trunk Flex LROM (+) pain Ext WFL R L Rotation WFL WFL Sidebend WFL WFL Side glide NT NT LE R L L1-2 Psoas 4/5 4/5 L3 Quad 4/5 4/5 L4 Anterior Tibialis 4/5 4/5 L5 Ext Hallicus Longus 4/5 4/5 S1 Peroneals 4/5 4/5 Abdominal 4/5 4/5 Gluts 4/5 4/5 Hamstrings 4/5 4/5 Gait: Patient ambulates independently without AD with kyphotic posture. Special Tests Bradley's: (-) Today's Measurements; ROM: (P=Pain) (Note ROM) Neck Flex WFL Ext WFL Retraction WFL Protraction WFL R L Rotation WFL WFL Sidebend WFL WFL Side glide NT NT Muscle Test: Neck R L Flexion 4+/5 4+/5 Extension 4+/5 4+/5 Rotation 4+/5 4+/5 Side Bend 4+/5 4+/5 Special Tests Compression: (-) Shoulder Evaluation Observation: Palpation: TTP on neck, both shoulder and upper back Bony prominences: WFL Crepitus: none Skin: intact Posture: kyphotic,stooped Dominate UE: RUE Position ROM Shoulder Right Left Pain Manual Muscle Test Right Left sitting Flexion WFL WFL (+) R>L Flexors 4+/5 4+/5 Extension WFL WFL Extensors 4+/5 4+/5 Abduction WFL WFL Abductors 4+/5 4+/5 Adduction WFL WFL Adductions 4/5 4/5 External rotation WFL WFL External rotation 4/5 4/5 Internal rotation WFL WFL Internal rotation 4/5 4/5 Functional movements: Both R & L Hand behind back: able Hand behind neck: able Hand to axilla: able Hand to opposite shoulder: able Upper quadrant scan Cervical: WFL Scapula: WFL Elbow: WFL Wrist: WFL Special Tests Empty cans/supraspinatus: R (-), L (-) ROM: (P=Pain) (Note ROM) Trunk Flex LROM (+) pain Ext WFL R L Rotation WFL WFL Sidebend WFL WFL Side glide NT NT LE R L L1-2 Psoas 4/5 4/5 L3 Quad 4/5 4/5 L4 Anterior Tibialis 4/5 4/5 L5 Ext Hallicus Longus 4/5 4/5 S1 Peroneals 4/5 4/5 Abdominal 4/5 4/5 Gluts 4/5 4/5 Hamstrings 4/5 4/5 Gait: Patient ambulates independently without AD with kyphotic posture. Special Tests Bradley's: (-) Activity Tolerance: Good Today's Treatment: See flowsheet for treatment and progressions: Educated patient on area we are treating per evaluation. Exercise Flow Sheet Diagnosis: Pain multiple sites Precautions: Falls POC due: 2018 Date: 02/10 02/14 02/21 02/26 03/05 03/07 03/14 MHP(prn) 15 10' 10' 10' 10' 10' CP (prn) Cervical stretches 3x 30' Flexion 2x30" 3x30" 3x30" 3x30" 3 x 30" Extension 2x30" 3x30" 3x30" 3x30" 3 x 30" Levator Scapula 3x 30' 2x30"ea 2x30"ea 2x 30"ea 3x 30"ea 3x 30"ea 3 x 30" ea Upper Traps 3x 30" 2x30"ea 2x30"ea 2x 30"ea 3x 30"ea 3x 30"ea 3x 30"ea Lateral Flexion Towel stretch Cervical Exercises Chin Tucks Shoulder shrugs 3x 30" x10 x10 x12 x15 x15 15x Shoulder Rolls forward/backward 3x 30" x10ea x10ea x12ea x15ea x15ea 15x ea Scapular retraction 3x 30" x10 x10 x12 x15 x15 15x T Y I movement Arm circles Zahra flexion & abduction ---> ---> 1'/1' 2'/2' UBE fwd/bkwd ---> L1 1'/1' ---> L1 1.5'/1.5 Nu-step 6' Ultrasound (prn) 8' 1MHz 1Wcm2 8' 1MHz 1Wcm2 8' 1MHz 1Wcm2 8' 1MHz 1Wcm2 8' 1MHz 1Wcm2 8' 1 MHz 1Wcm 2 STM (prn) 5' Reviewed with: [facility] Provider Initials: MCB 1 Cortney MB 2 MB 3 MB 4 MB 5 MB 6 Re-evalB 7 Home Exercise Program: Continue current HEP as previously ordered. A: Patient pain still persist on upper back,neck with improvement using modalities. No improvement on trunk and both LE for patient concentrate with her upper back ,neck pain. Recommend to continue PT to address PT goals emphasis with trunk and BLE deficit. Educate patient the importance of performing HEP at home to maximize outcome towards her PT goals. Patient was informed that next PT visits will focus on her trunk and BLE deficits. Patient understood verbally the PT goals. Goals: The following goals are to maximize independence and safety with functional mobility to eventually return to prior living situation and prior functional status. Progress towards goals set at initial Evaluation: Short Term Goals: 2 weeks 1. Decrease pain on neck,upper back,both shoulder to 50% (MET) 2. Become independent with home exercise program(MET) 3. Improve AROM to trunk to WFL(NOT MET) 4. Improve strength to 1/2 -1 grade on trunk, both UE and BLE(partiall MET) Nursing Home Goals: 4 weeks 1.Decrease pain to patient comfort level (NOT MET) 3.Improve strength on trunk,both UE and LE to 1 grade as needed for basic house chores and ADLs(NOT MET) 4.Return to most functional activities, good body mechanics and posture (NOT MET ) Updated Goals: In 4-6 weeks, patient and/or family will demonstrate: 1. Improve AROM to trunk to WFL 2. Improve strength to 1/2 -1 grade on trunk, both UE and BLE 3.Decrease pain to patient comfort level 4.Improve strength on trunk,both UE and LE to 1 grade as needed for basic house chores and ADLs 5.Return to most functional activities, good body mechanics and posture P: PLAN OF CARE: Physical Therapy with emphasis on Functional mobility training , Modalities (PRN),Gait training, Patient/Family/Caregiver education, Therapeutic exercise, Manual Therapy (PRN),Neuromuscular Re-Education to address Decreased strength, ROM deficits, Safety awareness deficits and Pain torestore pt's ability increase flexibility, strength of the trunk BUE and BLE Frequency: 1- 2x/wk Duration: 4-6 wks I have discussed the risks and benefits of the above plan with Trisha Senior. She is aware of the diagnosis and potential to improve. She participated in the setting of the goals and understands the importance of complying with the treatment plan, including home instruction. She agreed to the above frequency and duration of rehab services. Total Timed Tx Codes in Minutes: 30 Min Total Treatment Time in Minutes: 45 Min Brigitte Parra PT [place] License: [id number] documented in this encounter Plan of Treatment Date Type Specialty Care Team Description 03/19/2019 Ancillary Visit Physical Therapy Juan M Washburn MD [address] [address] [phone] Nina Florence, [employer] [address] [place] [address] 03/21/2019 Ancillary Visit Physical Therapy Juan M Washburn MD [address] [address] [phone] Nina Florence, [employer] [address] [place] [address] Health Maintenance Due Date Last Done Comments [...] Type / Group Dates UNITED UHC MEDICARE [id number] 2018-Pres Medicare Adv HEALTHCARE COMPLETE ent PPO MEDICARE CHOICE ADVANTAGE [facility] MEDICAID OF xxxxxxxxx 2019-Pres [phone] Medicaid [place] ent [id number] [place] [address] [phone] (Work) documented as of this encounter
--- OUTSIDE RECORDS SUMMARY | 2019-08-01 10:29 | XMS REPORT | Summary of Care ---
:1945 Author Organization [facility] Address [address] [place] [address] Care Team Providers Name Role Phone Kendrick Amaya Primary Care Provider Reason for Visit Reason Comments Follow-up (Routine) Status Reason Specialty Diagnoses / Referred By Referred To Procedures Contact Contact Authorized Physical Therapy Procedures Kendrick Amaya [facility], CONSULT/REFERRAL E PT PHYSICAL THERAPY [address] [place] PHYSICAL [facility] THERAPY EVALUATION BREN [address] [place], [place] LOW COMPLEX 20 [place], [address] [place] [address] [place] PHYSICAL Phone: THERAPY EVALUATION [phone] MOD COMPLEX 30 Fax: [facility] [phone] [place] PHYSICAL THERAPY EVALUATION HIGH COMPLEX 45 [place] THERAPEUTIC EXERCISES [place] NEUROMUSC REEDUCAT,1+ AREAS, EA 15 MIN [place] MANUAL THER TECH,1+REGIONS,EA 15 MIN [place] THERAPEUT ACTVITY DIRECT PT CONTACT EACH 15 MIN [place] SELF-CARE/HOME MGMT TRAINING EACH 15 MINUTES INITIAL EVALUATION Encounter Details Date Type Department Care Team Description 03/26/2019 Ancillary Visit [facility] Oneil Esquivel MD [address] [place] [address] Chronic pain of both shoulders (Primary Dx); Physical Therapy- Nina Florence, [facility] [address] [place] [address] Upper back pain, chronic; Inderjit Muscle weakness (generalized); 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 Poor posture Building [address] [place] [address] [address] [place] [address] Allergies No Known Allergiesdocumented as of this [...] in this encounter Progress Notes Nina Florence, [employer] - 03/26/2019 1:00 PM CDT Physical Therapy Outpatient Progress Note Date: March 26, 2019 Time: 1:00 PM Diagnosis: M54.2 Neck pain (primary encounter diagnosis) M25.511, G89.29, M25.512 Chronic pain of both shoulders M54.9, G89.29 Upper back pain, chronic M62.81 Muscle weakness (generalized) R29.3 Poor posture IDENTIFYING DATA: Patient name: Trisha Senior : 1945 Primary care physician: Kendrick Amaya? ?? S: Patient does not rate pain before tx. O: See documentation flowsheet for treatment details. Exercise Flow Sheet Precautions:Fall, Memory POC Due:Apr 25 or visit Date: 03/14 803/26 Bike L2-6' NS L2 x6' Stretching: SKC 5"x 10ea 3x30"ea DKC Piriformis 30" x 3 3x30"ea HS stretch 3 x 30" 3x30"ea Trunk Rotations 10x ea --- Exercises: Pelvic Tilts 10x 5"x10 Bridging 10x x10 Marching with Abd bracing 10xea x10ea Dying bug-alt UE/LE 10x -- SLR's 10x x10ea Prone on elbows Prone press ups Lat Pull Downs Rows [place] Ball: Seated on ball with tilt Alt UE Alt LE/Marching Alt UE/LE US to thoracic back 5' @ 1MHz 1 Wcm2 MHP (prn) 10'neck/LB 10' LB &neck CP (prn) Provider Initials Re-eval MCB 02/17 MCB / MB 04/22 A: Patient has difficulty breathing occasionally during supine exercises that causes her to cough(smoker's cough). US last 5 min of session to thoracic back. Pt required cues to stay on task. Pt tolerated treatment fair+. P: Physical Therapy with emphasis on Functional [...] understanding of teaching provided. Nina Florence PTA [place] Lic#[id number] Supervised by: Brigitte Parra PT [facility] Dept. [phone] (phone) Total Timed Tx Codes in Minutes: 40 Min Total Treatment Time in Minutes: 50 Min documented in this encounter Plan of Treatment Date Type Specialty Care Team Description 03/28/2019 Ancillary Visit Physical Therapy Oneil Esquivel MD [address] [place] [phone] Nina Florence PTA [address] [place] [address] 04/02/2019 Ancillary Visit Physical Therapy Dinora Pacheco, PT [address] [place] [address] 04/04/2019 Ancillary Visit Physical Therapy Nina Florence PTA [address] [place] [address] Health Maintenance Due Date Last Done Comments [...] Type / Group Dates UNITED UHC MEDICARE [id number] 2018-Pres Medicare Adv HEALTHCARE COMPLETE ent PPO MEDICARE CHOICE ADVANTAGE [facility] MEDICAID OF xxxxxxxxx 2019-Pres [phone] Medicaid [place] ent [id number] [place] [address] [phone] (Work) documented as of this encounter
[2019-08-01] MEDS ORDERED: IPRATROPIUM BROM 0.5MG/2.5ML ONE (12:51)
[2019-08-01] MEDS ORDERED: METHYLPREDNISOLONE 125 MG INJ ONE (12:51)
[2019-08-01] MEDS ORDERED: ALBUTEROL 2.5 MG/3 ML NEB SOL ONE (12:51)
[2019-08-01] MEDS ORDERED: predniSONE 20 MG TAB ONE (12:51)
[2019-08-01] MEDS ORDERED: Levofloxacin500mg IV 500 MG/100 ML BAG IV ONE (12:52)
[2019-08-01] MEDS ORDERED: MORPHINE 4 MG/ML SYR ONE (13:01)
[2019-08-01] MEDS ORDERED: ONDANSETRON 4 MG/2 ML VIAL ONE (13:01)
[2019-08-01 13:04] LABS: Absolute Lymphocytes (CBC) 1.2 K/uL (0.7-4.9); Basophils % 0.4 % (0-1.3)
[2019-08-01 13:05] LABS: Protime INR 0.99
--- NOTE | 2019-08-01 13:06 | RAD REPORT ---
EXAM DESCRIPTION: Kailash Single View08/01/2019 12:57 pm CLINICAL HISTORY: Cough COMPARISON: 2016 FINDINGS: The lungs appear clear of acute infiltrate. The heart is normal size IMPRESSION: No acute abnormalities displayed
[2019-08-01 13:12] LABS: Hematocrit 43.9 % (36.0-45.0); Lymphocytes % 17.1 % (15.3-44.8); MPV 7.9 fL (7.6-11.3); RBC Red Blood Cell Count 4.51 M/uL (3.86-4.86)
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
--- NOTE | 2019-08-01 13:13 | RAD REPORT ---
EXAM DESCRIPTION: RAD - Hip Right 2 View - 08/01/2019 12:57 pm CLINICAL HISTORY: Right hip pain FINDINGS: Bones are osteoporotic. Old fracture involves the right ischium No acute fracture or dislocation seen If patient continues have symptoms to suggest an occult fracture MRI would be recommended
--- NOTE | 2019-08-01 13:21 | EDPHYS ---
Physician Documentation [facility] Name: Trisha Senior Age: 74 yrs Sex: Female : 1945 Arrival Date: 08/01/2019 Time: 10:30 Bed 17 Private MD: Kendrick Amaya E ED Physician Kolby Escalante HPI: 08/01 12:28 This 74 yrs old Female presents to ER via Wheelchair with complaints of Hip ele Pain - fell yest. 12:28 The patient or guardian reports decreased range of motion, pain. that occurred at home, ele sustained from a fall. The complaints affect the right hip. Modifying factors: The symptoms are alleviated by remaining still, the symptoms are aggravated by weight bearing. Associated signs and symptoms: Loss of consciousness: the patient experienced no loss of consciousness, Pertinent positives: weakness. Severity of symptoms: At their worst the symptoms were mild, moderate, in the emergency department the symptoms are unchanged. Historical: - Allergies: 10:47 No Known Allergies; jl7 - Home Meds: 10:47 propranolol 40 mg Oral tab 1 tab 2 times per day [Active]; lorazepam 1 mg Oral tab jl7 [Active]; Albuterol Inhl [Active]; - PMHx: 10:47 Anxiety; COPD; jl7 - PSHx: 10:47 Knee surgery; Tubal ligation; jl7 - Immunization history:: Adult Immunizations not up to date. - Social history:: Smoking status: Patient uses tobacco products, smokes one-half pack cigarettes per day. - Ebola Screening: : No symptoms or risks identified at this time. - Family history:: not pertinent. ROS: 12:29 Constitutional: Negative for fever, chills, and weight loss, Eyes: Negative for injury, ele pain, redness, and discharge, ENT: Negative for injury, pain, and discharge, Neck: Negative for injury, pain, and swelling, Cardiovascular: Negative for chest pain, palpitations, and edema, Abdomen/GI: Negative for abdominal pain, nausea, vomiting, diarrhea, and constipation, Back: Negative for injury and pain, : Negative for injury, bleeding, discharge, and swelling, MS/Extremity: Negative for injury and deformity, Skin: Negative for injury, rash, and discoloration, Neuro: Negative for headache, weakness, numbness, tingling, and seizure, Psych: Negative for depression, anxiety, suicide ideation, homicidal ideation, and hallucinations, Allergy/Immunology: Negative for hives, rash, and allergies, Endocrine: Negative for neck swelling, polydipsia, polyuria, polyphagia, and marked weight changes, Hematologic/Lymphatic: Negative for swollen nodes, abnormal bleeding, and unusual bruising. 12:29 Respiratory: Positive for cough, shortness of breath, on exertion. Exam: 12:29 Constitutional: This is a well developed, well nourished patient who is awake, alert, ele and in no acute distress. Head/Face: Normocephalic, atraumatic. Eyes: Pupils equal round and reactive to light, extra-ocular motions intact. Lids and lashes normal. Conjunctiva and sclera are non-icteric and not injected. Cornea within normal limits. Periorbital areas with no swelling, redness, or edema. ENT: Nares patent. No nasal discharge, no septal abnormalities noted. Tympanic membranes are normal and external auditory canals are clear. Oropharynx with no redness, swelling, or masses, exudates, or evidence of obstruction, uvula midline. Mucous membranes moist. Neck: Trachea midline, no thyromegaly or masses palpated, and no cervical lymphadenopathy. Supple, full range of motion without nuchal rigidity, or vertebral point tenderness. No Meningismus. Chest/axilla: Normal chest wall appearance and motion. Nontender with no deformity. No lesions are appreciated. Cardiovascular: Regular rate and rhythm with a normal S1 and S2. No gallops, murmurs, or rubs. Normal PMI, no JVD. No pulse deficits. Abdomen/GI: Soft, non-tender, with normal bowel sounds. No distension or tympany. No guarding or rebound. No evidence of tenderness throughout. Back: No spinal tenderness. No costovertebral tenderness. Full range of motion. Female : Normal external genitalia. Skin: Warm, dry with normal turgor. Normal color with no rashes, no lesions, and no evidence of cellulitis. MS/ Extremity: Pulses equal, no cyanosis. Neurovascular intact. Full, normal range of motion. Neuro: Awake and alert, GCS 15, oriented to person, place, time, and situation. Cranial nerves II-XII grossly intact. Motor strength 5/5 in all extremities. Sensory grossly intact. Cerebellar exam normal. Normal gait. Psych: Awake, alert, with orientation to person, place and time. Behavior, mood, and affect are within normal limits. 12:29 Respiratory: mild respiratory distress is noted, Respirations: labored breathing, that is mild, that is moderate, Breath sounds: bronchial sounds, rhonchi, wheezing: expiratory Respiratory rate: 18 Vital Signs: 10:47 BP 130 / 75; Pulse 104; Resp 16; Temp 98.4(O); Pulse Ox 94% on R/A; Pain 9/10; jl7 11:51 BP 122 / 84; Pulse 103; Resp 18; Temp 98.2(O); Pulse Ox 95% on R/A; mh5 MDM: 10:49 Patient medically screened. [facility] 12:29 Data reviewed: vital signs, nurses notes, lab test result(s), EKG, radiologic studies, ele plain films. 08/01 12:28 Order name: Basic Metabolic Panel; Complete Time: 13:28 [facility] 08/01 12:28 Order name: CBC with Diff; Complete Time: 13:20 [facility] 08/01 12:28 Order name: LFT's; Complete Time: 13:28 [facility] 08/01 12:28 Order name: Magnesium; Complete Time: 13:28 [facility] 08/01 12:28 Order name: NT PRO-BNP; Complete Time: 13:28 [facility] 08/01 12:28 Order name: PT-INR; Complete Time: 13:20 [facility] 08/01 11:42 Order name: CXR XRAY; Complete Time: 13:20 08/01 11:44 Order name: Hip Right 2 View XRAY; Complete Time: 13:20 08/01 12:28 Order name: Pelvis XRAY; Complete Time: 13:20 [facility] 08/01 12:28 Order name: Troponin (emerg Dept Use Only); Complete Time: 13:28 [facility] 08/01 12:28 Order name: EKG; Complete Time: 12:29 [facility] 08/01 12:28 Order name: Cardiac monitoring; Complete Time: 12:45 [facility] 08/01 12:28 Order name: EKG - Nurse/Tech; Complete Time: 12:45 [facility] 08/01 12:28 Order name: IV Saline Lock; Complete Time: 12:45 [facility] 08/01 12:28 Order name: Labs collected and sent; Complete Time: 12:45 [facility] 08/01 12:28 Order name: O2 Per Protocol; Complete Time: 12:45 [facility] 08/01 12:28 Order name: O2 Sat Monitoring; Complete Time: 12:45 [facility] Administered Medications: 13:10 Drug: SOLU-Medrol 125 mg Route: IVP; Site: right wrist; iw 13:12 Drug: Albuterol - atroVENT (3:1) (2.5 mg - 0.5 mg) 3 ml Route: Nebulizer; iw 13:15 Drug: levofloxacin 500 mg Volume: 100 ml; Route: IVPB; Infused Over: 60 mins; Site: iw right wrist; 13:16 Drug: predniSONE 20 mg Route: PO; iw Disposition: 08/01/19 13:20 Discharged to Home. Impression: Chronic obstructive pulmonary disease with (acute) exacerbation, Fall due to bumping against object, Pain in right hip. - Condition is Fair. - Discharge Instructions: Joint Pain, Arthritis, Chronic Bronchitis, Chronic Obstructive Pulmonary Disease, How to Use an Inhaler, Musculoskeletal Pain, Chronic Obstructive Pulmonary Disease Exacerbation, Chronic Obstructive Pulmonary Disease, [id number], Fall Prevention in the Home, [id number], Hip Pain. - Prescriptions for Levaquin 500 mg Oral Tablet - take 1 tablet by ORAL route once daily for 8-10 days; 9 tablet. Tylenol- Codeine #3 300-30 mg Oral Tablet - take 2 tablets by ORAL route every 6 hours As needed; 26 tablet. Albuterol Sulfate 2.5 mg /3 mL (0.083 %) Inhalation Solution for Nebulization - inhale 1 unit by NEBULIZATION route every 8 hours As needed; 1 box. Prednisone 20 mg Oral Tablet - take 2 tablet by ORAL route once daily for 5 days; 10 tablet. Albuterol Sulfate 90 mcg/actuation - inhale 1-2 puff by INHALATION route every 4-6 hours; 1 Inhaler. - Medication Reconciliation Form, Thank You Letter, Antibiotic Education, Prescription Opioid Use form. - Follow up: Kendrick Amaya; When: 2 - 3 days; Reason: Recheck today's complaints, Continuance of care, Re-evaluation by your physician. Follow up: Henry Chao; When: 2 - 3 days; Reason: Recheck today's complaints, Continuance of care, Re-evaluation by your physician. - Problem is new. - Symptoms have improved. Signatures: Dispatcher [employer] EDKolby Mehta MD MD cha Williams, Irene, RN RN iw Lennox Tinajero RN RN jl7 Corrections: (The following items were deleted from the chart) 14:20 13:15 Crutches ordered. ele burr 14:30 13:20 08/01/2019 13:20 Discharged to Home. Impression: Chronic obstructive pulmonary iw disease with (acute) exacerbation; Fall due to bumping against object; Pain in right hip. Condition is Fair. Discharge Instructions: Joint Pain, Arthritis, Chronic Bronchitis, Chronic Obstructive Pulmonary Disease, How to Use an Inhaler, Musculoskeletal Pain, Chronic Obstructive Pulmonary Disease Exacerbation, Chronic Obstructive Pulmonary Disease, [id number], Fall Prevention in the Home, [id number], Hip Pain. Prescriptions for Levaquin 500 mg Oral Tablet - take 1 tablet by ORAL route once daily for 8-10 days; 9 tablet, Tylenol-Codeine #3 300-30 mg Oral Tablet - take 2 tablets by ORAL route every 6 hours As needed; 26 tablet, Albuterol Sulfate 2.5 mg /3 mL (0.083 %) Inhalation Solution for Nebulization - inhale 1 unit by NEBULIZATION route every 8 hours As needed; 1 box, Prednisone 20 mg Oral Tablet - take 2 tablet by ORAL route once daily for 5 days; 10 tablet, Albuterol Sulfate 90 mcg/actuation - inhale 1-2 puff by INHALATION route every 4-6 hours; 1 Inhaler. and Forms are Medication Reconciliation Form, Thank You Letter, Antibiotic Education, Prescription Opioid Use. Follow up: Kendrick Amaya; When: 2 - 3 days; Reason: Recheck today's complaints, Continuance of care, Re-evaluation by your physician. Follow up: Henry Chao; When: 2 - 3 days; Reason: Recheck today's complaints, Continuance of care, Re-evaluation by your physician. Problem is new. Symptoms have improved. ele
--- NOTE | 2019-08-01 13:21 | ER ---
Nurse's Notes [facility] Name: Trisha Senior Age: 74 yrs Sex: Female : 1945 Arrival Date: 08/01/2019 Time: 10:30 Bed 17 Private MD: Kendrick Amaya E Diagnosis: Chronic obstructive pulmonary disease with (acute) exacerbation;Fall due to bumping against object;Pain in right hip Presentation: 08/01 10:41 Presenting complaint: Patient states: Slipped yesterday and fell on my tailbone, could jl7 hardly get up this morning because it hurts so bad. Also, I have some chest congestion that's been there for several months and now I'm coughing up stuff. Transition of care: patient was not received from another setting of care. Onset of symptoms was July 31, 2019. Risk Assessment: Do you want to hurt yourself or someone else? Patient reports no desire to harm self or others. Care prior to arrival: None. 10:41 Method Of Arrival: Wheelchair jl7 10:41 Acuity: DAVID 3 jl7 15:35 Initial Sepsis Screen: Does the patient meet any 2 criteria? Does the patient have a iw suspected source of infection?. Triage Assessment: 10:47 General: Appears in no apparent distress. uncomfortable, Behavior is calm, cooperative. jl7 Pain: Complains of pain in "tailbone". Historical: - Allergies: 10:47 No Known Allergies; jl7 - Home Meds: 10:47 propranolol 40 mg Oral tab 1 tab 2 times per day [Active]; lorazepam 1 mg Oral tab jl7 [Active]; Albuterol Inhl [Active]; - PMHx: 10:47 Anxiety; COPD; jl7 - PSHx: 10:47 Knee surgery; Tubal ligation; jl7 - Immunization history:: Adult Immunizations not up to date. - Social history:: Smoking status: Patient uses tobacco products, smokes one-half pack cigarettes per day. - Ebola Screening: : No symptoms or risks identified at this time. - Family history:: not pertinent. Screenin:25 Abuse screen: Denies threats or abuse. Denies injuries from another. Nutritional iw screening: No deficits noted. Tuberculosis screening: No symptoms or risk factors identified. Fall Risk Fall in past 12 months (25 points). Assessment: 11:50 General: Appears in no apparent distress. comfortable, Behavior is calm, cooperative. iw Pain: Complains of pain in right gluteus ethel and pelvis. Neuro: Level of Consciousness is awake, alert, obeys commands, Oriented to person, place, time, situation. Cardiovascular: Capillary refill < 3 seconds in bilateral fingers Patient's skin is warm and dry. Respiratory: Airway is patent Respiratory effort is even, unlabored, Respiratory pattern is regular, symmetrical, Breath sounds are coarse in right upper lobe, left upper lobe, right middle lobe and left lower lobe. Derm: Skin is intact, is healthy with good turgor. Musculoskeletal: Range of motion: intact in all extremities. 12:25 Reassessment: Patient appears in no apparent distress at this time. Patient and/or iw family updated on plan of care and expected duration. Pain level reassessed. Patient is alert, oriented x 3, equal unlabored respirations, skin warm/dry/pink. patient care technician instructor at bedside. 13:26 Reassessment: Patient appears in no apparent distress at this time. Patient and/or iw family updated on plan of care and expected duration. Pain level reassessed. Patient is alert, oriented x 3, equal unlabored respirations, skin warm/dry/pink. Levaquin infusing to right wrist. 14:02 Reassessment: Patient appears in no apparent distress at this time. iw Vital Signs: 10:47 BP 130 / 75; Pulse 104; Resp 16; Temp 98.4(O); Pulse Ox 94% on R/A; Pain 9/10; jl7 11:51 BP 122 / 84; Pulse 103; Resp 18; Temp 98.2(O); Pulse Ox 95% on R/A; mh5 ED Course: 10:30 Patient arrived in ED. as 10:30 Kendrick Amaya MD is Private Physician. as 10:46 Triage completed. jl7 10:47 Arm band placed on right wrist. jl7 10:49 Kolby Escalante MD is Attending Physician. ele 11:22 Kassi Ibarra, COLTEN is Primary Nurse. iw 11:56 Patient has correct armband on for positive identification. Bed in low position. Call 5 light in reach. Side rails up X 1. Adult w/ patient. Pillow given. Pulse ox on. NIBP on. 12:28 No provider procedures requiring assistance completed. iw 12:46 Initial lab(s) drawn, by me, sent to lab. Inserted saline lock: 20 gauge in right iw wrist, using aseptic technique. Blood collected. 12:58 CXR XRAY In Process Unspecified. EDMS 12:58 Hip Right 2 View XRAY In Process Unspecified. EDMS 12:58 Pelvis XRAY In Process Unspecified. EDMS 13:20 Kendrick Amaya MD is Referral Physician. ele 13:20 Henry Chao MD is Referral Physician. ele 14:21 IV discontinued, intact, bleeding controlled, No redness/swelling at site. Pressure iw dressing applied. Administered Medications: 13:10 Drug: SOLU-Medrol 125 mg Route: IVP; Site: right wrist; iw 13:12 Drug: Albuterol - atroVENT (3:1) (2.5 mg - 0.5 mg) 3 ml Route: Nebulizer; iw 13:15 Drug: levofloxacin 500 mg Volume: 100 ml; Route: IVPB; Infused Over: 60 mins; Site: iw right wrist; 13:16 Drug: predniSONE 20 mg Route: PO; iw Outcome: 13:20 Discharge ordered by . ele 14:21 Discharged to home ambulatory. iw 14:21 Condition: good 14:21 Discharge instructions given to patient, Instructed on discharge instructions, follow up and referral plans. medication usage, Demonstrated understanding of instructions, follow-up care, medications, Prescriptions given X 5 14:30 Patient left the ED. iw Signatures: Dispatcher [employer] EDMT Kolby Escalante MD MD cha Martinez, Amelia as Williams, Irene, RN COLTEN Evita Chen [facility] Lennox Tinajero RN RN jl7 Corrections: (The following items were deleted from the chart) 10:46 10:41 Acuity: DAVID 4 jl7 jl7
[2019-08-01 13:23] LABS: ALT/SGPT 17 U/L (12-78); AST/SGOT 12 U/L (15-37); Albumin 3.6 g/dL (3.4-5.0); Alkaline Phosphatase 93 U/L (45-117); BUN Blood Urea Nitrogen 6 mg/dL (7-18); Bicarbonate 29 mmol/L (21-32); Bilirubin Direct 0.2 mg/dL (0-0.2); Bilirubin Total 0.9 mg/dL (0.2-1.0); Glucose Level 137 mg/dL (74-106); NT PRO-BNP 114 pg/mL (<125); Protein, Total 6.4 g/dL (6.4-8.2); Sodium Level 132 mmol/L (136-145); Troponin (Emerg Dept Use Only) < 0.02 ng/mL (0.0-0.045)
[2019-08-01 14:48] VITALS: BP 122/84; TEMP 98.2; O2SAT 95
--- NOTE | 2019-08-01 15:32 | EKG ---
Test Date: 2019-08-01 Test Time: 12:44:14 Nursery Nurse: TEDDY MEASUREMENT RESULTS: Intervals: Rate: 99 OH: 146 QRSD: 68 QT: 332 QTc: 426 Hubert[place]: P: 38 OH: 146 QRS: 9 T: 36 INTERPRETIVE STATEMENTS: Normal sinus rhythm Normal ECG Compared to ECG 09/28/2016 09:52:38 Sinus tachycardia no longer present T-wave abnormality no longer present Electronically Signed On 08-01-19 15:30:54 OFFICE SERVICES ASSISTANT by Myles Lorenzo
== END 2019-08-01 14:30 | disposition home or self-care (01) ==
LOC: ER 10:27
DX: M25.551 Pain in right hip (principal); J44.1 Chronic obstructive pulmonary disease with (acute) exacerbation; W01.198A Fall on same level from slipping, tripping and stumbling with subsequent striking against other object, initial encounter; Y93.9 Activity, unspecified; Y92.9 Unspecified place or not applicable; F41.9 Anxiety disorder, unspecified; F17.210 Nicotine dependence, cigarettes, uncomplicated
CPT/HCPCS: 93005; 85025; 80048; 36415; 83735; 85610; 80076; 84484; 83880; 71045; 72170; 73502; 94640; 96375; 96374; 99284; J2930; J2405; J7512

== ENCOUNTER 2020-01-01 13:40 | Emergency (ER) | payer OTHER ==
--- OUTSIDE RECORDS SUMMARY | 2020-01-01 13:42 | XMS REPORT | Continuity of Care Document ---
:1945 Author Organization [employer] Care Team Providers Name Role Phone [employer] Unavailable Un available Problems Problem Status Onset Classification Date Comments Sourc e Date Reported M54.5 M53.3 Active 11/28/19 [place] [facility] LOW BACK PAIN Active [place] SACROCOCCYGEAL Active [place] DISORDERS, NOT ELSEWHERE Medications No Data Provided for This Section Allergies, Adverse Reactions, Alerts No Known Medication Allergies Immunizations No Data Provided for This Section Results No Data Provided for This Section Pathology Reports No Data Provided for This Section Diagnostic Reports Report Value Date Source Spine Sacrum wo PROCEDURE: MAGNETIC RESONANCE IMAGING OF THE [facility] 12/02/2016 [place] contrast MRI REASON FOR EXAM: M54.5, M53.3. COMPARISON: Lumbar spine magnetic resonance imag ing 12/02/2016. TECHNIQUE: Unenhanced axial, coronal and sagittal MR images of the sacrum were performed. FINDINGS: Findings in the vi sualized lower lumbar spine are described in the [...] posterior subluxatio n of the 1st coccygeal segme nt relative to the sacrum. There is no [...] 1. No demonstrable acute abnormality of the sacr um. 2. Mild degenerative changes of the sacroiliac j oints. 3. Minimal posterior subluxa tion of the 1st coccygeal segment relative to the sacrum. 4. Small bilateral ovarian c ysts. A short interval follow-up pelvis ultrasound is suggested in approximately 3 months for reassessment. 5. Trace fluid in the endometrial canal and a subcentimeter uterine leiomyoma. 6. Colonic diverticulosis. SL: 13 Spine lumbar wo PROCEDURE: LUMBAR SPINE MAGNETIC RESONANCE IMAGI 12/02/2016 [facility] contrast MRI CLINICAL INDICATION: M54.5. Low back pain. COMPARISON: None. TECHNIQUE: Unenhanced axial and sagittal MR images of the lumbar spine were performed. FINDINGS: 5 nonrib-bearing l umbar vertebral bodies are assumed. The lumbar vertebral bodies are normally aligned. There are small anterior marginal osteophytes at all levels of the lumbar spine and visu alized lower thoracic spine. There is left-sided spondylolysis at L5. The discs are hydrated. There are acute/subacute com pression fractures with marrow edema without retropulsion, the maximal degree of compression deformity estimated at approximately: 45% at T12; 40% at L1; 25% at L2; and 40% a t L3. There is chronic compr ession fracture of the superior vertebral endplate of L5 with maximal degree of compression deformity estimated at approximately 37% without retropulsion. There is no significant abno rmality of the visualized retroperitoneal and paravertebral soft tissues. The conus medullaris terminates at the level of L1. The visualized lower thoracic spinal cord demonstrates normal signal intensity. T12-L1: Mild posterior disc space narrowing. Right posterolateral disc bulging measuring a maximal AP dimension of approximately 3 mm. Mild facet arthropathy. Mild to moderate bilateral foraminal narrowing. No significant spinal stenosis. L1-L2: Mild posterior disc s pace narrowing. Anterior annular fissure. Bilateral posterolateral disc bulging measuring a maximal AP dimension of approximately 3 mm. Mild facet arthropathy. Mild right for aminal narrowing. Mild to mo derate left foraminal narrowing. No significant spinal stenosis. L2-L3: Mild posterior disc s pace narrowing. Anterior annular fissure. Bilateral posterolateral disc bulging measuring a maximal AP dimension of approximately 3 to 4 mm. Right posterolateral annular fiss ure. Mild facet arthropathy. Mild to moderate right foraminal narrowing. Mild left foraminal narrowing. No significant spinal stenosis. L3-L4: Mild posterior disc s pace narrowing. Anterior disc bulging. Anterior annular fissure. Broad-based posterior disc bulge/protrusion measuring a maximal AP dimension of approximately 4 mm with an an nular fissure. Moderate face t arthropathy. Mild thickening of the ligamentum flavum. Moderate bilateral foraminal narrowing. Mild to moderate spinal stenosis. L4-L5: Mild posterior disc s pace narrowing. Anterior annular fissure. Broad- based posterior disc bulging most pronounced in the posterolateral aspects measuring a maximal AP dimension of approximately 3 to 4 mm. Moderate facet art hropathy. Mild to moderate bilateral foraminal narrowing most pronounced medially. Mild spinal stenosis. L5-S1: Mild posterior disc s pace narrowing. Anterior annular fissure. Broad- based posterior disc bulging most pronounced on the right measuring a maximal AP dimension of approximately 3 to 4 mm. Mild fa cet arthropathy. Mild bilate ral foraminal narrowing. No significant spinal stenosis. IMPRESSION: 1. Acute/subacute compressio n fractures without retropulsion from T12 through L3 as described above with the maximal degree of compression deformity at T12 estimated at 45%. 2. Chronic compression fracture of L5 without re tropulsion estimated at 37%. 3. Wayne spondylosis and facet arthropathy. 4. Multilevel posterior disc space narrowing, posterior disc bulging/protrusions and foraminal narrowing as described above. 5. Mild to moderate spinal stenosis at L3-L4. 6. Mild spinal stenosis at L4-L5. 7. Left-sided spondylolysis at L5. SL: 13 Consultation Notes No Data Provided for This Section Discharge Summaries No Data Provided for This Section History and Physicals No Data Provided for This Section Vital Signs No Data Provided for This Section Encounters Location Location Encounter Encounter Reason Attending ADM MT Stat Source Details Type Number For Provider Date Date Visit [facility] Outpatient [id number] Lonnie 12/02 12/03 RICHY Abraham /2016 [facility] Outpatient [id number] KARLY 10/16 [facility] /2018 Jose Procedures No Data Provided for This Section Assessment and Plan No Data Provided for This Section Plan of Care No Data Provided for This Section Social History Social History Date Source No data available for this 12/03/2016 [facility] section Family History No Data Provided for This Section Advance Directives No Data Provided for This Section Functional Status No Data Provided for This Section
--- OUTSIDE RECORDS SUMMARY | 2020-01-01 13:42 | XMS REPORT ---
:1945 Author Organization [facility] t Address [address] [place] [address] Care Team Providers Name Role Phone Naman Onel ALVARADO Attending Clinician Unavailable Katharine Parra PT Attending Clinician Unavailable Doug Abraham Attending Clinician Problems This patient has no known problems. Allergies, Adverse Reactions, Alerts This patient has no known allergies or adverse reactions. Medications This patient has no known medications. Procedures This patient has no known procedures. Encounters Start End Encounter Admission Attending Care Care Encounter Source Date/Time Date/Time Type Type Clinicians Facility Department ID 2019-04-04 2019-04-04 Ancillary ADAM Florence [id number] 13:02:56 13:47:56 Visit Nina Jansen [id number] [place] [id number] [facility] [phone] [facility] [address] [facility] 2019-03-26 2019-03-26 Ancillary ADAM Florence [id number] 13:01:20 13:46:20 Visit Nina Jansen [id number] [place] [id number] Profess[facility] [phone] [facility] [address] [facility] 2019-03-21 2019-03-21 Ancillary ADAM Parra [id number] 13:05:35 13:50:35 Visit Brigitte Katharine Inderjit [id number] [place] [id number] [facility] [phone] [facility] [address] [facility] 2019-03-19 2019-03-19 Case Naman, [facility] [id number] 00:00:00 00:00:00 Management Nina Jansen [id number] [place] [id number] Profess[facility] [phone] [facility] 2019-03-14 2019-03-14 Ancillary Fidel [facility] [id number] 13:02:56 14:00:25 Visit Brigitte Jansen [id number] [place] [id number] Profess[facility] [phone] [facility] [address] [facility] 2016-12-02 2016-12-02 Outpatient SERGE Abraham [facility] [id number] 12:58:00 23:59:00 Lonnie 00 Kwame Camacho [facility] Results This patient has no known results.
[2020-01-01 15:50] LABS: Urine Blood 2+ (NEG); Urine Glucose NEGATIVE (NEG); Urine Protein TRACE (NEG)
[2020-01-01 15:54] LABS: Urine Bacteria LOADED /HPF (<20); Urine Culture Reflex Order REFLEXED
[2020-01-01] MEDS ORDERED: FENTANYL CITR 100 MCG/2 ML ONE (15:59)
[2020-01-01 16:31] LABS: Absolute Lymphocytes (CBC) 1.1 K/uL (0.7-4.9); Basophils % 0.6 % (0-1.3); Hematocrit 48.3 % (36.0-45.0); Lymphocytes % 14.1 % (15.3-44.8); MPV 7.6 fL (7.6-11.3); RBC Red Blood Cell Count 5.07 M/uL (3.86-4.86)
[2020-01-01 16:41] LABS: Protime INR 1.01
[2020-01-01] MEDS ORDERED: CEFTRIAXONE/SWI 1gm 1 GM/10 ML SYR ONE (16:48)
[2020-01-01 17:02] LABS: ALT/SGPT 19 U/L (12-78); Albumin 3.4 g/dL (3.4-5.0); Alkaline Phosphatase 99 U/L (45-117); BUN Blood Urea Nitrogen 6 mg/dL (7-18); Bicarbonate 28 mmol/L (21-32); Bilirubin Direct 0.2 mg/dL (0-0.2); Bilirubin Total 1.1 mg/dL (0.2-1.0); Glucose Level 101 mg/dL (74-106); Lipase 49 U/L (73-393); Protein, Total 6.9 g/dL (6.4-8.2); Sodium Level 131 mmol/L (136-145)
[2020-01-01 17:05] LABS: AST/SGOT 16 U/L (15-37); Potassium 3.8 mmol/L (3.5-5.1)
--- NOTE | 2020-01-01 18:05 | RAD REPORT ---
EXAM DESCRIPTION: CT - Chest Abdomen Pelvis W Cont - 01/01/2020 5:34 pm CLINICAL HISTORY: Chest and abdominal pain status post fall COMPARISON: 2013 TECHNIQUE: Computed axial tomography of the chest, abdomen and pelvis was obtained. 100 cc Isovue-30 0 was administered intravenously. Oral contrast was not requested. This limits evaluation of bowel. All CT scans are performed using dose optimization technique as appropriate and may include automated exposure control or mA/KV adjustment according to patient size. FINDINGS: A pleural effusion is not present. A pulmonary contusion is not seen. COPD A mediastinal hematoma is not present. Small thyroid nodules The liver, spleen, pancreas, adrenals and kidneys do not demonstrate a traumatic injury. Right adrenal adenoma unchanged. No gross abnormality of the bladder. Milk of calcium within the gallbladder. Old vertebral fractures IMPRESSION: No acute traumatic injury involving the chest, abdomen nor pelvis is seen.
--- NOTE | 2020-01-01 18:27 | EDPHYS ---
Physician Documentation [facility] Name: Trisha Senior Age: 74 yrs Sex: Female : 1945 Arrival Date: 01/01/2020 Time: 13:53 Bed 18 Private MD: Kendrick Amaya E ED Physician Kolby Escalante HPI: 12/31 15:23 This 74 yrs old Female presents to ER via Ambulatory with complaints of Fall cp Injury. 15:23 Details of fall: The patient fell from an upright position, while walking, and struck a cp tile surface. Onset: The symptoms/episode began/occurred 2 nights ago. Associated injuries: The patient sustained injury to the chest, specifically the left lower lateral chest wall, pain with movement, tenderness, injury to the abdomen, specifically the left lateral abdomen. Historical: - Allergies: 13:55 No Known Allergies; ss - PMHx: 13:55 Anxiety; COPD; ss - PSHx: 13:55 Knee surgery; Tubal ligation; ss - Immunization history:: Adult Immunizations up to date. - Social history:: Smoking status: Patient denies any tobacco usage or history of. ROS: 15:30 Constitutional: Negative for body aches, chills, fever, poor PO intake. cp 15:30 Eyes: Negative for injury, pain, redness, and discharge. cp 15:30 ENT: Negative for drainage from ear(s), ear pain, sore throat, difficulty swallowing, difficulty handling secretions. 15:30 Cardiovascular: Positive for chest pain, of the left lateral chest, Negative for edema, palpitations. 15:30 Respiratory: Negative for cough, shortness of breath, wheezing. 15:30 Abdomen/GI: Positive for abdominal pain, of the posterior aspect of left lateral abdomen and anterior aspect of left lateral abdomen, Negative for vomiting, diarrhea, constipation. 15:30 : Positive for urinary symptoms. 15:30 Skin: Negative for rash. 15:30 Neuro: Negative for altered mental status, headache, weakness. 15:30 All other systems are negative. Exam: 15:35 Constitutional: The patient appears in no acute distress, alert, awake, cp non-diaphoretic, non-toxic, well developed, well nourished. 15:35 Head/Face: Normocephalic, atraumatic. cp 15:35 Eyes: Periorbital structures: appear normal, Conjunctiva: normal, no exudate, no cp injection, Sclera: no appreciated abnormality, Lids and lashes: appear normal, bilaterally. 15:35 ENT: External ear(s): are unremarkable, Nose: is normal, Mouth: is normal, Posterior pharynx: Airway: no evidence of obstruction, patent. 15:35 Neck: C-spine: vertebral tenderness, is not appreciated, crepitus, is not appreciated, ROM/movement: is normal, is supple, no range of motions limitations, no nuchal rigidity. 15:35 Chest/axilla: Inspection: normal, Palpation: crepitus, is not appreciated, tenderness, that is moderate, of the left lower lateral chest wall, that partially reproduces the patient's complaints. 15:35 Cardiovascular: Rate: tachycardic, Rhythm: regular, Edema: is not appreciated, JVD: is not appreciated. 15:35 Respiratory: the patient does not display signs of respiratory distress, Respirations: normal, no use of accessory muscles, labored breathing, is not present, Breath sounds: are clear throughout, no decreased breath sounds, no stridor, no wheezing. 15:35 Abdomen/GI: Inspection: abdomen appears normal, Bowel sounds: active, all quadrants, Palpation: soft, in all quadrants, moderate abdominal tenderness, in the posterior aspect of left lateral abdomen, anterior aspect of left lateral abdomen and left upper quadrant, rebound tenderness, is not appreciated. 15:35 Back: pain, of the thoracic area. 15:35 Skin: no rash present. 15:35 Neuro: Orientation: to person, place \T\ time. Mentation: is normal, Motor: moves all fours, strength is normal, Sensation: is normal. Vital Signs: 13:54 BP 136 / 84; Pulse 110; Resp 18; Temp 98.0(TE); Pulse Ox 98% on R/A; ss 17:00 BP 134 / 82; Pulse 106; Resp 18; Pulse Ox 96% on R/A; vc 18:00 BP 136 / 86; Pulse 98; Resp 16; Pulse Ox 98% on R/A; vc MDM: 15:17 Patient medically screened. cp 16:30 Differential diagnosis: contusion, fracture, multiple trauma. cp 18:25 Data reviewed: vital signs, nurses notes, lab test result(s), radiologic studies, CT cp scan. 18:25 Counseling: I had a detailed discussion with the patient and/or guardian regarding: the cp historical points, exam findings, and any diagnostic results supporting the discharge/admit diagnosis, lab results, radiology results, to return to the emergency department if symptoms worsen or persist or if there are any questions or concerns that arise at home. Response to treatment: the patient's symptoms have markedly improved after treatment, and as a result, I will discharge patient. ED course: VSS. CT results negative for acute trauma. Pain improved. Will discharge to home for continued monitoring. 12/31 15:23 Order name: Basic Metabolic Panel; Complete Time: 18:21 cp 12/31 18:21 Interpretation: Normal except: NA 131; CL 96; BUN 6. cp 12/31 15:23 Order name: CBC with Diff; Complete Time: 16:48 cp 12/31 16:48 Interpretation: Normal except: RBC 5.07; HGB 16.9; HCT 48.3; DG% 74.7; LYM% 14.1. cp 12/31 15:23 Order name: Hepatic Function; Complete Time: 18:21 cp 12/31 18:21 Interpretation: Normal except: BILIT 1.1; A/G 1.0. cp 12/31 15:23 Order name: Lipase; Complete Time: 18:21 cp 12/31 15:23 Order name: PT-INR; Complete Time: 16:48 cp 12/31 16:48 Interpretation: Reviewed. cp 12/31 15:23 Order name: Urine Microscopic Only; Complete Time: 16:23 cp 12/31 16:23 Interpretation: Normal except: UWBC LOADED; URBC 10-20; UBACT LOADED. cp 12/31 15:23 Order name: IV Saline Lock; Complete Time: 16:00 cp 12/31 15:23 Order name: Labs collected and sent; Complete Time: 16:00 cp 12/31 15:31 Order name: CT Chest, Abdomen, Pelvis - W/Contrast; Complete Time: 18:21 cp 12/31 15:42 Order name: Urine Dipstick--Ancillary (enter results); Complete Time: 16:23 bd 12/31 16:24 Interpretation: Normal except: UBLD 2+; UESTR 3+. cp 12/31 15:55 Order name: Urine Culture EDMS 12/31 15:23 Order name: Urine Dipstick-Ancillary (obtain specimen); Complete Time: 15:59 cp 12/31 16:05 Order name: Labs - recollect needed: recollect all labs; Complete Time: 16:18 bd Administered Medications: 16:00 Drug: fentaNYL (PF) 25 mcg Route: IVP; Site: right forearm; vc 17:38 Follow up: Response: No adverse reaction; Pain is decreased vc 16:57 Drug: Rocephin 1 grams Route: IV; Rate: calculated rate; Site: right forearm; vc 17:38 Follow up: IV Status: Completed infusion; IV Intake: 10ml vc 18:44 Drug: TORadol - Ketorolac 15 mg Route: IVP; Site: right forearm; vc 18:45 Follow up: Response: No adverse reaction; Medication administered at discharge. vc Disposition: 01/01 05:43 Co-signature as Attending Physician, Kolby Escalante MD I agree with the assessment and ele plan of care. Disposition: 01/01/20 18:26 Discharged to Home. Impression: Urinary tract infection, site not specified, Fall on same level from slipping, tripping and stumbling. - Condition is Stable. - Discharge Instructions: Urinary Tract Infection, Adult. - Prescriptions for Augmentin 875- 125 mg Oral Tablet - take 1 tablet by ORAL route every 12 hours for 7 days; 14 tablet. Naprosyn 500 mg Oral Tablet - take 1 tablet by ORAL route 2 times per day take with food; 20 tablet. - Medication Reconciliation Form, Thank You Letter, Antibiotic Education, Prescription Opioid Use form. - Follow up: Private Physician; When: 2 - 3 days; Reason: Recheck today's complaints. - Problem is new. - Symptoms have improved. Signatures: Dispatcher [employer] EDAR Manavzeferino Kolby Salazar MD MD cha Smirch, Shelby, RN RN Kolby Caballero PA PA cp Calcote, Vanessa RN RN vc Corrections: (The following items were deleted from the chart) 12/31 18:47 18:26 01/01/2020 18:26 Discharged to Home. Impression: Urinary tract infection, site vc not specified; Fall on same level from slipping, tripping and stumbling. Condition is Stable. Forms are Medication Reconciliation Form, Thank You Letter, Antibiotic Education, Prescription Opioid Use. Follow up: Private Physician; When: 2 - 3 days; Reason: Recheck today's complaints. Problem is new. Symptoms have improved. cp
--- NOTE | 2020-01-01 18:27 | ER ---
Nurse's Notes [facility] Name: Trisha Senior Age: 74 yrs Sex: Female : 1945 Arrival Date: 01/01/2020 Time: 13:53 Bed 18 Private MD: Kendrick Amaya E Diagnosis: Urinary tract infection, site not specified;Fall on same level from slipping, tripping and stumbling Presentation: 12/31 13:54 Chief complaint: Patient states: L lateral chest wall pain that began a few days ago ss after falling in the bathroom. Coronavirus screen: Proceed with normal triage. Ebola Screen: Patient denies exposure to infectious person. Patient denies travel to an Ebola-affected area in the 21 days before illness onset. Initial Sepsis Screen: Does the patient meet any 2 criteria? No. Patient's initial sepsis screen is negative. Does the patient have a suspected source of infection? No. Patient's initial sepsis screen is negative. Risk Assessment: Do you want to hurt yourself or someone else? Patient reports no desire to harm self or others. Onset of symptoms was December 29, 2019. 13:54 Method Of Arrival: Ambulatory ss 13:54 Acuity: DAVID 4 ss Triage Assessment: 15:15 General: Appears in no apparent distress. uncomfortable, Behavior is calm, cooperative, vc appropriate for age. Pain: Complains of pain in anterior aspect of left lateral abdomen. Historical: - Allergies: 13:55 No Known Allergies; ss - PMHx: 13:55 Anxiety; COPD; ss - PSHx: 13:55 Knee surgery; Tubal ligation; ss - Immunization history:: Adult Immunizations up to date. - Social history:: Smoking status: Patient denies any tobacco usage or history of. Screenin:15 Abuse screen: Denies threats or abuse. Nutritional screening: No deficits noted. vc Tuberculosis screening: No symptoms or risk factors identified. Fall Risk Fall in past 12 months (25 points). IV access (20 points). Ambulatory Aid- Crutches/Cane/Walker (15 pts). Gait- Weak (10 pts.). Mental Status- Oriented to own ability (0 pts). Total Whitfield Fall Scale indicates High Risk Score (45 or more points). Fall prevention measures have been instituted. Side Rails Up X 2 Placed Close to Nursing Station Frequent Obs/Assessments Occuring. Assessment: 15:15 General: Appears in no apparent distress. uncomfortable, Behavior is calm, cooperative, vc appropriate for age. Pain: Complains of pain in anterior aspect of left lateral abdomen Pain radiates to back Pain currently is 10 out of 10 on a pain scale. Quality of pain is described as sharp, stabbing, Is continuous, Alleviated by medications, rest. 15:15 Neuro: Level of Consciousness is awake, alert, obeys commands, Oriented to person, vc place, time, situation. Cardiovascular: Capillary refill < 3 seconds Patient's skin is warm and dry. Respiratory: Airway is patent Respiratory effort is even, unlabored, Respiratory pattern is regular, symmetrical. GI: No signs and/or symptoms were reported involving the gastrointestinal system. : Reports pain flank(s), in lower back. EENT: No signs and/or symptoms were reported regarding the EENT system. Derm: No signs and/or symptoms reported regarding the dermatologic system. Musculoskeletal: Circulation, motion, and sensation intact. Range of motion: intact in all extremities. 16:00 Reassessment: Patient appears in no apparent distress at this time. Patient and/or vc family updated on plan of care and expected duration. Pain level reassessed. Patient is alert, oriented x 3, equal unlabored respirations, skin warm/dry/pink. 17:00 Reassessment: Patient appears in no apparent distress at this time. Patient and/or vc family updated on plan of care and expected duration. Pain level reassessed. Patient is alert, oriented x 3, equal unlabored respirations, skin warm/dry/pink. Patient states feeling better. Patient states symptoms have improved. 18:00 Reassessment: Patient appears in no apparent distress at this time. Patient and/or vc family updated on plan of care and expected duration. Pain level reassessed. Patient is alert, oriented x 3, equal unlabored respirations, skin warm/dry/pink. Patient states feeling better. Patient states symptoms have improved. Vital Signs: 13:54 BP 136 / 84; Pulse 110; Resp 18; Temp 98.0(TE); Pulse Ox 98% on R/A; ss 17:00 BP 134 / 82; Pulse 106; Resp 18; Pulse Ox 96% on R/A; vc 18:00 BP 136 / 86; Pulse 98; Resp 16; Pulse Ox 98% on R/A; vc ED Course: 13:53 Patient arrived in ED. mr 13:53 Kendrick Amaya MD is Private Physician. mr 13:55 Triage completed. ss 13:55 Arm band placed on right wrist. ss 15:15 Patient has correct armband on for positive identification. Bed in low position. Call vc light in reach. Pulse ox on. NIBP on. 15:16 Kolby James PA is PHCP. cp 15:16 Kolby Escalante MD is Attending Physician. cp 15:26 Clare Hoffman RN is Primary Nurse. vc 17:34 CT Chest, Abdomen, Pelvis - W/Contrast In Process Unspecified. EDMS 17:34 Inserted saline lock: 20 gauge in left forearm, using aseptic technique. vc 18:45 No provider procedures requiring assistance completed. IV discontinued, intact, vc bleeding controlled, No redness/swelling at site. Pressure dressing applied. Administered Medications: 16:00 Drug: fentaNYL (PF) 25 mcg Route: IVP; Site: right forearm; vc 17:38 Follow up: Response: No adverse reaction; Pain is decreased vc 16:57 Drug: Rocephin 1 grams Route: IV; Rate: calculated rate; Site: right forearm; vc 17:38 Follow up: IV Status: Completed infusion; IV Intake: 10ml vc 18:44 Drug: TORadol - Ketorolac 15 mg Route: IVP; Site: right forearm; vc 18:45 Follow up: Response: No adverse reaction; Medication administered at discharge. vc Intake: 17:38 IV: 10ml; Total: 10ml. vc Outcome: 18:26 Discharge ordered by . cp 18:45 Discharged to home via wheelchair, with family. vc 18:45 Condition: good 18:45 Discharge instructions given to patient, Instructed on discharge instructions, follow up and referral plans. medication usage, Demonstrated understanding of instructions, follow-up care, medications, Prescriptions given X 2. 18:47 Patient left the ED. vc Addendum: 01/04/2020 07:25 Addendum: Culture Results: Positive urine culture. No further action required. Bacteria e b sensitive to prescribed antibiotic. Signatures: Dispatcher [facility] Windy Dumont Fabiola Magdaleno RN RN Page, Kolby, PA PA cp Ortega, Awa eb Calcote, Clare, RN RN vc
[2020-01-01] MEDS ORDERED: KETOROLAC 30 MG/ML INJ ONE (18:38)
[2020-01-01 19:07] VITALS: BP 136/84; TEMP 98; O2SAT 98
== END 2020-01-01 18:47 | disposition home or self-care (01) ==
LOC: ER 13:40
DX: N39.0 Urinary tract infection, site not specified (principal); R07.9 Chest pain, unspecified; W18.30XA Fall on same level, unspecified, initial encounter; Y93.01 Activity, walking, marching and hiking; Y92.9 Unspecified place or not applicable
CPT/HCPCS: 96365; 87088; 85025; 87086; 80048; 36415; 85610; 80076; 87077; 87186; 83690; 71260; 74177; 96375; 99284; Q9967; J3010; J0696; 81003; 81015

== ENCOUNTER 2020-05-23 14:48 | Emergency (ER) | payer OTHER ==
--- NOTE | 2020-05-23 16:15 | RAD REPORT ---
EXAM DESCRIPTION: RAD - Chest Single View - 05/23/2020 4:00 pm CLINICAL HISTORY: shortness of breath Chest pain. COMPARISON: Chest Single View dated 08/01/2019; Chest Pa And Lat (2 Views) dated 11/28/2015; CHEST SI NGLE VIEW dated 09/15/2013; CHEST SINGLE VIEW dated 08/15/2012; Chest Abdomen Pelvis W Cont dated 12/31 FINDINGS: Portable technique limits examination quality. Mild diffuse COPD is present. Heart is upper limit normal in size with a tortuous thoracic aorta. No displaced fractures. IMPRESSION: Mild diffuse COPD.
[2020-05-23 16:29] LABS: Absolute Lymphocytes (CBC) 1.3 K/uL (0.7-4.9); Basophils % 0.3 % (0-1.3); Hematocrit 42.1 % (36.0-45.0); Lymphocytes % 8.6 % (15.3-44.8); MPV 7.3 fL (7.6-11.3); RBC Red Blood Cell Count 4.42 M/uL (3.86-4.86)
[2020-05-23 16:31] LABS: Protime INR 1.03
[2020-05-23 16:54] LABS: BUN Blood Urea Nitrogen 6 mg/dL (7-18); Bicarbonate 30 mmol/L (21-32); Glucose Level 83 mg/dL (74-106); Sodium Level 134 mmol/L (136-145)
[2020-05-23 16:55] LABS: ALT/SGPT 12 U/L (12-78); AST/SGOT 9 U/L (15-37); Albumin 3.1 g/dL (3.4-5.0); Alkaline Phosphatase 97 U/L (45-117); Bilirubin Direct 0.4 mg/dL (0-0.2); Bilirubin Total 2.2 mg/dL (0.2-1.0); Magnesium 2.1 mg/dL (1.8-2.4); NT PRO-BNP 174 pg/mL (<125); Troponin (Emerg Dept Use Only) < 0.02 ng/mL (0.0-0.045)
--- NOTE | 2020-05-23 17:18 | ER ---
Nurse's Notes [facility] Name: Trisha Senior Age: 74 yrs Sex: Female : 1945 Arrival Date: 05/23/2020 Time: 14:49 Bed 14 Private MD: Diagnosis: Chronic obstructive pulmonary disease with (acute) exacerbation Presentation: 05/23 15:01 Chief complaint: Patient states: "I fell about a week ago onto my left side of my jd3 chest. since then I have had problems breathing. I need to see if I hurt my lung or if there is fluid on my lungs or something, because it is getting harder and harder to breath. i am also starting to get a fever and nasal congestion.". Coronavirus screen: difficulty breathing, fever, runny nose, Client presents with at least one sign or symptom that may indicate coronavirus-19. Standard/surgical mask placed on the client. Provider contacted for isolation considerations. Ebola Screen: Patient negative for fever greater than or equal to 101.5 degrees Fahrenheit, and additional compatible Ebola Virus Disease symptoms. Initial Sepsis Screen: Does the patient meet any 2 criteria? No. Patient's initial sepsis screen is negative. Does the patient have a suspected source of infection? No. Patient's initial sepsis screen is negative. Risk Assessment: Do you want to hurt yourself or someone else? Patient reports no desire to harm self or others. Note pt reported taking Mucinex prior to arrival. Onset of symptoms was May 19, 2020. 15:01 Method Of Arrival: Wheelchair jd3 15:01 Acuity: DAVID 3 jd3 Historical: - Allergies: 15:05 No Known Allergies; jd3 - Home Meds: 15:05 propranolol 40 mg Oral tab 1 tab 2 times per day [Active]; lorazepam 1 mg Oral tab jd3 [Active]; - PMHx: 15:05 Anxiety; COPD; jd3 - PSHx: 15:05 Tubal ligation; Knee surgery; jd3 - Immunization history:: Adult Immunizations up to date. - Social history:: Smoking status: Patient reports the use of cigarette tobacco products, smokes one pack cigarettes per day. Assessment: 18:25 Reassessment: Patient is alert, oriented x 3, equal unlabored respirations, skin aa5 warm/dry/pink. To bedside to d/c pt. 18:30 Reassessment: Patient is alert, oriented x 3, equal unlabored respirations, skin aa5 warm/dry/pink. Pt states "I feel like I need a nebulizer right now, I feel a little more short of breath". PA was notified. . 18:35 Reassessment: PA at bedside . aa5 Vital Signs: 15:04 BP 98 / 71; Pulse 84; Resp 23 S; Temp 98.3(O); Pulse Ox 94% on R/A; Weight 60.78 kg jd3 (R); Height 5 ft. 6 in. (167.64 cm) (R); Pain 8/10; 17:49 BP 155 / 81; Pulse 88; Resp 20; Temp 98.1(O); Pulse Ox 91% on R/A; mh5 18:30 BP 154 / 67; Pulse 83; Resp 22 S; Pulse Ox 92% on R/A; aa5 15:04 Body Mass Index 21.63 (60.78 kg, 167.64 cm) [facility] ED Course: 14:30 Initial lab(s) drawn, by me, sent to lab. First set of blood cultures drawn by me. 5 14:49 Patient arrived in ED. ag5 14:55 Danna Mary, RN is Primary Nurse. [facility] 15:00 Dixon Finnegan PA is PHCP. [facility] 15:00 Kolby Escalante MD is Attending Physician. [facility] 15:04 Triage completed. jd3 15:05 Arm band placed on. jd3 16:00 XRAY Chest (1 view) In Process Unspecified. EDMS 16:21 Jannet Marti, RN is Primary Nurse. 16:22 Patient has correct armband on for positive identification. Bed in low position. Call light in reach. Side rails up X2. 16:22 First set of blood cultures drawn by ED staff. Inserted saline lock: 22 gauge in left forearm, using aseptic technique. Blood collected. 16:34 COVID-19 Sent. 5 16:35 NT PRO-BNP Sent. 5 16:35 Liver (Hepatic) Function Sent. 5 16:35 Magnesium Sent. 5 16:35 CBC with Automated Diff Sent. 5 16:35 Basic Metabolic Panel Sent. 5 16:35 Blood Culture Adult (2) Sent. 5 16:35 Lactate Sent. 5 16:35 Procalcitonin Sent. 5 16:35 CRP Sent. 5 16:35 Basic Metabolic Panel Sent. 5 16:36 CBC with Diff Sent. 5 16:36 LFT's Sent. 5 16:36 Magnesium Sent. 5 16:36 PT-INR Sent. 5 16:36 NT PRO-BNP Sent. 5 16:36 Troponin (emerg Dept Use Only) Sent. 5 16:36 Inserted saline lock: 22 gauge in left forearm, using aseptic technique. Blood 5 collected. 16:38 Warm blanket given. monitor car operator on. Pulse ox on. NIBP on. 5 16:38 EKG done, by ED staff, reviewed by Kolby Escalante MD. [facility] 18:25 IV discontinued, intact, bleeding controlled, No redness/swelling at site. Pressure 5 dressing applied. 18:25 No provider procedures requiring assistance completed. aa5 Administered Medications: 18:00 Drug: Decadron - Dexamethasone 10 mg Route: IVP; Site: left forearm; aa5 18:10 Follow up: Response: No adverse reaction 5 18:37 Drug: Albuterol HFA Inhaler 2 puffs Route: Inhalation; aa5 Outcome: 17:18 Discharge ordered by MD. joseph 18:39 Discharged to home ambulatory, with significant other. aa5 18:39 Condition: stable 18:39 Discharge instructions given to patient, Instructed on discharge instructions, follow up and referral plans. medication usage, Demonstrated understanding of instructions, follow-up care, medications, Prescriptions given X 4. 18:47 Patient left the ED. aa5 Addendum: 05/26/2020 13:20 Addendum: COVID-19 Result: Negative result given to RN to notify pt. Attempted to i w contact pt regarding negative COVID-19 swab results. Left voice mail. 05/27/2020 08:41 Addendum: COVID-19 Result: Negative result given to RN to notify pt. Attempted to i w contact pt regarding negative COVID-19 swab results. Left voice mail. 11:51 Addendum: COVID-19 Result: Negative result given to RN to notify pt. Notified pt of i w negative COVID 19 swab results. Pt advised that even with a negative test result they should remain in isolation until symptom free for 3 days without medication. Pt also advised to return to the ED for worsening symptoms. Signatures: Dispatcher [employer] EDDixon Blancas PA PA jmm Williams, Irene, RN RN iw Calderon, Audri, RN RN [address] [facility] Madi Perez RN RN jd3 Danna Mary RN RN ca1 Maya Fields Amy, RN RN
--- NOTE | 2020-05-23 17:18 | EDPHYS ---
Physician Documentation [facility] Name: Trisha Senior Age: 74 yrs Sex: Female : 1945 Arrival Date: 05/23/2020 Time: 14:49 Bed 14 Private MD: LUMA Physician Kolby Escalante HPI: 05/23 15:33 This 74 yrs old Female presents to ER via Wheelchair with complaints of jmm Breathing Difficulty. 15:33 The patient has shortness of breath at rest. Onset: The symptoms/episode began/occurred jmm gradually, 2 week(s) ago. Duration: The symptoms are continuous. The patient's shortness of breath is aggravated by nothing, is alleviated by nothing. Associated signs and symptoms: Pertinent positives: fever. This is a 74 year old female with a history of COPD, anxiety that presents to the ED with complaints of shortness of breath, fever. Patient states she developed congestion 2 week prior with fever. The patient's fever has resolved but states she has become more short of breath. and is worse there is fluid in her lungs. . Historical: - Allergies: 15:05 No Known Allergies; jd3 - Home Meds: 15:05 propranolol 40 mg Oral tab 1 tab 2 times per day [Active]; lorazepam 1 mg Oral tab jd3 [Active]; - PMHx: 15:05 Anxiety; COPD; jd3 - PSHx: 15:05 Tubal ligation; Knee surgery; jd3 - Immunization history:: Adult Immunizations up to date. - Social history:: Smoking status: Patient reports the use of cigarette tobacco products, smokes one pack cigarettes per day. ROS: 15:33 Constitutional: Positive for fever. jmm 15:33 Respiratory: Positive for cough, shortness of breath. 15:33 Abdomen/GI: Negative for nausea and vomiting. 15:33 All other systems are negative. Exam: 15:33 Constitutional: This is a well developed, well nourished patient who is awake, alert, jmm and in no acute distress. Head/Face: atraumatic. Eyes: EOMI, no conjunctival erythema appreciated ENT: Moist Mucus Membranes Neck: Trachea midline, Supple Chest/axilla: Normal chest wall appearance and motion. Cardiovascular: Regular rate and rhythm. No edema appreciated 15:33 Abdomen/GI: Non distended, soft Back: Normal ROM Skin: General appearance color normal MS/ Extremity: Moves all extremities, no obvious deformities appreciated, no edema noted to the lower extremities Neuro: Awake and alert, normal gait Psych: Behavior is normal, Mood is normal, Patient is cooperative and pleasant 15:33 Respiratory: the patient does not display signs of respiratory distress, Respirations: normal, Breath sounds: wheezing: that is mild, is scattered. Vital Signs: 15:04 BP 98 / 71; Pulse 84; Resp 23 S; Temp 98.3(O); Pulse Ox 94% on R/A; Weight 60.78 kg jd3 (R); Height 5 ft. 6 in. (167.64 cm) (R); Pain 8/10; 17:49 BP 155 / 81; Pulse 88; Resp 20; Temp 98.1(O); Pulse Ox 91% on R/A; mh5 18:30 BP 154 / 67; Pulse 83; Resp 22 S; Pulse Ox 92% on R/A; aa5 15:04 Body Mass Index 21.63 (60.78 kg, 167.64 cm) jd3 MDM: 15:01 Patient medically screened. [facility] 17:16 Data reviewed: vital signs, nurses notes. Counseling: I had a detailed discussion with opal the patient and/or guardian regarding: the historical points, exam findings, and any diagnostic results supporting the discharge/admit diagnosis, lab results, radiology results, the need for outpatient follow up, to return to the emergency department if symptoms worsen or persist or if there are any questions or concerns that arise at home. ED course: Patient is alert and non toxic in appearance. Patient does not appear to be in resp distress. Patient is advised to follow up with pcp and otherwise given strict return precautions. Patient understood and agrees with the plan of care. . 05/23 15:14 Order name: Basic Metabolic Panel [facility] 05/23 15:14 Order name: CBC with Diff [facility] 05/23 15:14 Order name: LFT's [facility] 05/23 15:14 Order name: Magnesium [facility] 05/23 15:14 Order name: NT PRO-BNP [facility] 05/23 15:14 Order name: PT-INR; Complete Time: 16:51 [facility] 05/23 15:14 Order name: Troponin (emerg Dept Use Only); Complete Time: 16:56 [facility] 05/23 15:15 Order name: CRP; Complete Time: 16:56 [facility] 05/23 15:15 Order name: Procalcitonin; Complete Time: 17:04 [facility] 05/23 15:15 Order name: Lactate; Complete Time: 16:56 [facility] 05/23 15:15 Order name: Blood Culture Adult (2) [facility] 05/23 15:15 Order name: Basic Metabolic Panel; Complete Time: 16:56 [facility] 05/23 15:15 Order name: CBC with Automated Diff; Complete Time: 16:51 [facility] 05/23 15:15 Order name: Liver (Hepatic) Function; Complete Time: 16:56 [facility] 05/23 15:14 Order name: XRAY Chest (1 view); Complete Time: 16:17 [facility] 05/23 15:15 Order name: EKG; Complete Time: 15:15 [facility] 05/23 15:15 Order name: Cardiac monitoring; Complete Time: 16:33 [facility] 05/23 15:15 Order name: EKG - Nurse/Tech; Complete Time: 16:35 [facility] 05/23 15:15 Order name: IV Saline Lock; Complete Time: 16:33 [facility] 05/23 15:15 Order name: Labs collected and sent; Complete Time: 16:33 [facility] 05/23 15:15 Order name: O2 Per Protocol; Complete Time: 16:33 [facility] 05/23 15:15 Order name: O2 Sat Monitoring; Complete Time: 16:33 [facility] 05/23 15:15 Order name: Magnesium; Complete Time: 16:56 [facility] 05/23 15:15 Order name: NT PRO-BNP; Complete Time: 16:56 [facility] 05/23 15:22 Order name: COVID-19 [facility] Administered Medications: 18:00 Drug: Decadron - Dexamethasone 10 mg Route: IVP; Site: left forearm; aa5 18:10 Follow up: Response: No adverse reaction aa5 18:37 Drug: Albuterol HFA Inhaler 2 puffs Route: Inhalation; aa5 Disposition: 05/24 07:16 Co-signature as Attending Physician, Kolby Escalante MD I agree with the assessment and ele plan of care. Disposition: 05/23/20 17:18 Discharged to Home. Impression: Chronic obstructive pulmonary disease with (acute) exacerbation. - Condition is Stable. - Discharge Instructions: Chronic Obstructive Pulmonary Disease Exacerbation, COVID-19. - Prescriptions for Prednisone 20 mg Oral Tablet - take 3 tablet by ORAL route once daily for 5 days; 15 tablet. Zithromax Z- Adal 250 mg Oral Tablet - take 1 tablet by ORAL route as directed for 5 days Day 1 - take two (2) tablets one time. Day 2, 3, 4 , 5 take one (1) tablet once daily.; 6 tablet. Albuterol Sulfate 2.5 mg /3 mL (0.083 %) Inhalation Solution for Nebulization - inhale 1 unit by NEBULIZATION route every 8 hours As needed; 1 box. Albuterol Sulfate 90 mcg/actuation - inhale 1-2 puff by INHALATION route every 4-6 hours; 1 Inhaler. - Medication Reconciliation Form, Thank You Letter, Antibiotic Education, Prescription Opioid Use form. - Follow up: Private Physician; When: 2 - 3 days; Reason: Recheck today's complaints, Continuance of care, Re-evaluation by your physician. Signatures: Dispatcher [employer] EDKolby Mehta MD MD cha Mickail, Joel, PA PA Crissy Cowan, RN RN aa5 Madi Perez RN RN jd3 Corrections: (The following items were deleted from the chart) 05/23 18:19 17:08 Urine Dipstick-Ancillary ordered. opal ca1 18:47 17:18 05/23/2020 17:18 Discharged to Home. Impression: Chronic obstructive pulmonary aa5 disease with (acute) exacerbation. Condition is Stable. Forms are Medication Reconciliation Form, Thank You Letter, Antibiotic Education, Prescription Opioid Use. Follow up: Private Physician; When: 2 - 3 days; Reason: Recheck today's complaints, Continuance of care, Re-evaluation by your physician. opal
[2020-05-23] MEDS ORDERED: dexAMETHasone 4 MG/ML VIAL ONE (18:00)
[2020-05-23] MEDS ORDERED: ALBUTEROL INHALER 60 PUFF/8 GM IH ONE (18:43)
[2020-05-23 19:12] VITALS: TEMP 98.1
[2020-05-23 19:14] VITALS: BP 154/67; O2SAT 92
--- OUTSIDE RECORDS SUMMARY | 2020-05-27 01:23 | XMS REPORT | Continuity of Care Document ---
:1945 Author Organization [facility] Care Team Providers Name Role Phone [facility] Unavailable Un available Problems Problem Status Onset [...] PROCEDURE: MAGNETIC RESONANCE IMAGING OF THE [facility] 12[facility]02/2016 [place] contrast [place] REASON FOR EXAM: [...] PROCEDURE: LUMBAR SPINE MAGNETIC RESONANCE IMAGI 12/02/2016 [facility] contrast MRI CLINICAL INDICATION: M54.5. Low [...] without re tropulsion estimated at 37%. 3. [place] spondylosis and facet arthropathy. 4. Multilevel posterior [...] Location Location Encounter Encounter Reason Attending ADM [place] Stat Source Details Type Number For Provider Date Date Visit [facility] Outpatient [id number] Lonnie 12/02 12/03 RICHY Abraham /2016 [facility] Outpatient [id number] KARLY 10/16 [facility] /2018 Jose Procedures No Data Provided for This Section Assessment and Plan No Data Provided for This Section Plan of Care No Data Provided for This Section Social History Social History Date Source No data available for this 12/03/2016 [facility] section Family History No Data Provided for This Section Advance Directives No Data Provided for This Section Functional Status No Data Provided for This Section
--- OUTSIDE RECORDS SUMMARY | 2020-05-27 01:23 | XMS REPORT | Continuity of Care Document ---
:1945 Author Organization [facility] t Address [address] [place] [address] Care Team Providers Name Role Phone Onel Florence PTA Attending Clinician Unavailable Katharine Parra PT Attending Clinician Unavailable Doug Abraham Attending Clinician Problems Condition Condition Condition Status Onset Resolution Last Treating Co mments Source Name Details Category Date Date Treatment Clinician Date M54.5 Diagnosis Active 2016-12-02 Mem oria M53.3 4-10 13:08:00 l M54.5 00:00: Flynn M53.3 00 Active 11/27/2016 [facility] LOW BACK Diagnosis Active 2016-12-02 M emoria PAIN 13:08:00 l LOW BACK [place] PAIN Active [facility] SACROCOCCY Diagnosis Active 2016-12-02 Memoria GEAL 13:08:00 l DISORDERS, [place] NOT SACROCOCCY ELSEWHERE GEAL DISORDERS, NOT ELSEWHERE Active [facility] Allergies, Adverse Reactions, Alerts This patient has no known allergies or adverse reactions. Social History Social Habit Start Date Stop Date Quantity Comments Source Social History 2016-12-03 2016-12-03 [facility] ermann 04:59:00 04:59:00 Medications This patient has no known medications. Procedures This patient has no known procedures. Encounters Start End Encounter Admission Attending Care Care Encounter Source Date/Time Date/Time Type Type Clinicians Facility Department ID 2019-04-04 2019-04-04 Ancillary Naman [facility] [id number] 13:02:56 13:47:56 Visit Nina Jansen [id number] [place] [id number] Professio [phone] [facility] [address] [facility] 2019-03-26 2019-03-26 Ancillary Naman [facility] [id number] 13:01:20 13:46:20 Visit Nina Jansen [id number] [place] [id number] Professio [phone] [facility] [address] [facility] 2019-03-21 2019-03-21 Ancillary Fidel [facility] [id number] 13:05:35 13:50:35 Visit Brigitte Jansen [id number] [place] [id number] Professio [phone] [facility] [address] [facility] 2019-03-19 2019-03-19 [facility] Naman [facility] [id number] 00:00:00 00:00:00 Management Nina Jansen [id number] [place] [id number] Professio [phone] [facility] [address] [facility] 2019-03-14 2019-03-14 Ancillary Fidel [facility] [id number] 13:02:56 14:00:25 Visit Brigitte Jansen [id number] [place] [id number] Professio [phone] [facility] [address] [facility] 2016-12-02 2016-12-02 Outpatient CHRISTINA Abraham [id number] 12:58:00 23:59:00 Lonnie Genao Results This patient has no known results.
== END 2020-05-23 18:47 | disposition home or self-care (01) ==
LOC: ER 14:48
DX: J44.1 Chronic obstructive pulmonary disease with (acute) exacerbation (principal); Z20.828 Contact with and (suspected) exposure to other viral communicable diseases; F41.9 Anxiety disorder, unspecified; F17.210 Nicotine dependence, cigarettes, uncomplicated
CPT/HCPCS: 93005; 87040 ×2; 85025; 80048; 36415; 83735; 85610; 80076; 83605; 84484; 84145; 83880; 86140; 71045; 96374; 99285; U0002; J1100

== ENCOUNTER 2020-07-17 09:17 | Emergency (ER) | payer OTHER ==
--- OUTSIDE RECORDS SUMMARY | 2020-07-17 09:19 | XMS REPORT | Continuity of Care Document ---
:1945 Author Organization [facility] Care Team Providers Name Role Phone [facility] Unavailable Un available Problems Problem Status Onset [...] PROCEDURE: MAGNETIC RESONANCE IMAGING OF THE [facility] 12/02/2016 [place] contrast MRI REASON FOR EXAM: [...] PROCEDURE: LUMBAR SPINE MAGNETIC RESONANCE IMAGI 12/02/2016 [facility] contrast MRI CLINICAL INDICATION: M54.5. Low [...] without re tropulsion estimated at 37%. 3. [place] spondylosis and facet arthropathy. 4. Multilevel posterior [...] Location Location Encounter Encounter Reason Attending ADM [place] Stat Source Details Type Number For Provider Date Date Visit [facility] Outpatient [id number] Lonnie 12/02 12/03 RICHY Abraham /2016 [facility] Outpatient [id number] KARLY 10/16 [facility] /2018 Jose Procedures No Data Provided for This Section Assessment and Plan No Data Provided for This Section Plan of Care No Data Provided for This Section Social History Social History Date Source No data available for this 12/03/2016 [facility] section Family History No Data Provided for This Section Advance Directives No Data Provided for This Section Functional Status No Data Provided for This Section
--- OUTSIDE RECORDS SUMMARY | 2020-07-17 09:19 | XMS REPORT | Continuity of Care Document ---
:1945 Author Organization [facility] t Address [address] [place] [address] Care Team Providers Name Role Phone Naman Onel ALVARADO Attending Clinician Unavailable Katharine Parra PT Attending Clinician Unavailable Doug Abraham Attending Clinician Problems Condition Condition Condition Status Onset Resolution Last Treating Co mments Source Name Details Category Date Date Treatment Clinician Date M54.5 Diagnosis Active 2016-12-02 Mem oria M53.3 4-10 13:08:00 l M54.5 00:00: Jose M53.3 00 Active 11/27/2016 [facility] LOW BACK Diagnosis Active 2016-12-02 M emoria PAIN 13:08:00 l LOW BACK [place] PAIN Active [facility] SACROCOCCY Diagnosis Active 2016-12-02 Memoria GEAL 13:08:00 l DISORDERS, [place] NOT SACROCOCCY ELSEWHERE GEAL DISORDERS, NOT ELSEWHERE Active [facility] Allergies, Adverse Reactions, Alerts This patient has no known allergies or adverse reactions. Social History Social Habit Start Date Stop Date Quantity Comments Source Social History 2016-12-03 [facility] 04:59[facility] 04:59:00 Medications This patient has no known medications. Procedures This patient has no known procedures. Encounters Start End Encounter Admission Attending Care Care Encounter Source Date/Time Date/Time Type Type Clinicians Facility Department ID 2019-04-04 2019-04-04 Ancillary ADAM Florence [id number] 13:02:56 13:47:56 Visit Nina Jansen [id number] [place] [id number] Professio [phone] [facility] [address] [facility] 2019-03-26 2019-03-26 Ancillary Naman [facility] [id number] 13:01:20 13:46:20 Visit Nina Jansen [id number] [place] [id number] Professio [phone] [facility] [address] [facility] 2019-03-21 2019-03-21 Ancillary Parra [facility] [id number] 13:05:35 13:50:35 Visit Brigitte Jansen [id number] [place] [id number] Professio [phone] [facility] [address] [facility] 2019-03-19 2019-03-19 Case Naman [facility] [id number] 00:00:00 00:00:00 Management Nina Jansen [id number] [place] [id number] Professio [phone] [facility] [address] [facility] 2019-03-14 2019-03-14 Ancillary Fidel PRKAREEM [id number] 13:02:56 14:00:25 Visit Brigitte Jansen [id number] [place] [id number] Professio [phone] [facility] [address] [facility] 2016-12-02 2016-12-02 Outpatient CHRISTINA Abraham [facility] [id number] 12:58:00 23:59:00 Lonnie Genao Results This patient has no known results.
[2020-07-17] MEDS ORDERED: LORazepam 2 MG/ML VIAL ONE (09:50)
--- NOTE | 2020-07-17 10:23 | EDPHYS ---
Physician Documentation [facility] Name: Trisha Senior Age: 75 yrs Sex: Female : 1945 Arrival Date: 07/17/2020 Time: 09:21 Bed 4 Private MD: ED Physician Anand Fish HPI: 07/17 09:35 This 75 yrs old Female presents to ER via Wheelchair with complaints of jmm Numbness Of Hand. 09:35 The patient or guardian reports tingling numbness. Onset: The symptoms/episode jmm began/occurred gradually, 1 month(s) ago. Modifying factors: The symptoms are alleviated by Associated signs and symptoms: Pertinent negatives:. This is a 75 year old female with a history of COPD, anxiety that presents to the ED with complaints of numbness and tingling to her feet and hands which has been ongoing since running out of ativan approx 1 month ago. Denies pain. Patient states having difficulty sleeping. Historical: - Allergies: 09:33 No Known Allergies; hb - Home Meds: 09:33 lorazepam 1 mg Oral tab [Active]; propranolol 40 mg Oral tab 1 tab 2 times per day hb [Active]; - PMHx: 09:33 Anxiety; COPD; hb - PSHx: 09:33 Tubal ligation; Knee surgery; hb - Immunization history:: Adult Immunizations up to date. - Social history:: Smoking status: Patient reports the use of cigarette tobacco products, smokes one pack cigarettes per day. ROS: 09:35 Constitutional: Negative for fever, chills, and weight loss, Cardiovascular: Negative jmm for chest pain, palpitations, and edema, Respiratory: Negative for shortness of breath, cough, wheezing, and pleuritic chest pain. 09:35 Neuro: Positive for numbness. 09:35 All other systems are negative. Exam: 09:35 Constitutional: This is a well developed, well nourished patient who is awake, alert, jmm and in no acute distress. Head/Face: atraumatic. Eyes: EOMI, no conjunctival erythema appreciated ENT: Moist Mucus Membranes Neck: Trachea midline, Supple Chest/axilla: Normal chest wall appearance and motion. Cardiovascular: Regular rate and rhythm. No edema appreciated Respiratory: Normal respirations, no respiratory distress appreciated Abdomen/GI: Non distended, soft Back: Normal ROM Skin: General appearance color normal MS/ Extremity: Moves all extremities, no obvious deformities appreciated, no edema noted to the lower extremities Neuro: Awake and alert, normal gait Psych: Behavior is normal, Mood is normal, Patient is cooperative and pleasant Vital Signs: 09:30 BP 167 / 87; Pulse 102; Resp 16; Temp 97.1; Pulse Ox 95% on R/A; Pain 7/10; hb 10:23 BP 139 / 70; Pulse 84; Resp 17; Pulse Ox 95% on R/A; tw2 MDM: 09:35 Patient medically screened. [facility] 10:21 Data reviewed: vital signs, nurses notes. Counseling: I had a detailed discussion with opal the patient and/or guardian regarding: the historical points, exam findings, and any diagnostic results supporting the discharge/admit diagnosis, the need for outpatient follow up, to return to the emergency department if symptoms worsen or persist or if there are any questions or concerns that arise at home. ED course: Symptoms resolved after administration of ativan. Patient advised to follow up with pcp and otherwise given strict return precautions. Patient understood and agrees with the plan of care. . 07/17 09:46 Order name: EKG - Nurse/Tech; Complete Time: 09:46 [facility] Administered Medications: 09:41 Drug: Ativan 1 mg Route: IM; Site: right deltoid; 7 10:00 Follow up: Response: No adverse reaction; Marked relief of symptoms jl7 Disposition: 13:06 Co-signature as Attending Physician, Anand Fish MD. rn Disposition: 07/17/20 10:23 Discharged to Home. Impression: Anxiety disorder, unspecified. - Condition is Stable. - Discharge Instructions: Panic Attacks. - Prescriptions for Ativan 1 mg Oral Tablet - take 1 tablet by ORAL route every 8 hours As needed; 10 tablet. - Medication Reconciliation Form, Thank You Letter, Antibiotic Education, Prescription Opioid Use form. - Follow up: Private Physician; When: 2 - 3 days; Reason: Recheck today's complaints, Continuance of care, Re-evaluation by your physician. Signatures: Dixon Finnegan PA PA jmm Nieto, Roman, MD MD rn Baxter, Heather, RN RN hb Martinez, Maria [facility] Lennox Tinajero RN RN 7 Corrections: (The following items were deleted from the chart) 10:53 10:23 07/17/2020 10:23 Discharged to Home. Impression: Anxiety disorder, unspecified. jl7 Condition is Stable. Forms are Medication Reconciliation Form, Thank You Letter, Antibiotic Education, Prescription Opioid Use. Follow up: Private Physician; When: 2 - 3 days; Reason: Recheck today's complaints, Continuance of care, Re-evaluation by your physician. opal
--- NOTE | 2020-07-17 10:23 | ER ---
Nurse's Notes [facility] Name: Trisha Senior Age: 75 yrs Sex: Female : 1945 Arrival Date: 07/17/2020 Time: 09:21 Bed 4 Private MD: Diagnosis: Anxiety disorder, unspecified Presentation: 07/17 09:30 Chief complaint: Patient states: "I have been weaning off my lorazepam, it's been three hb days since I took anything. I can't sleep, I can't cry, I can't put any makeup on, and my right hand and both feet feel numb and tingly.". Coronavirus screen: At this time, the client does not indicate any symptoms associated with coronavirus-19. Ebola Screen: No symptoms or risks identified at this time. Initial Sepsis Screen: Does the patient meet any 2 criteria? No. Patient's initial sepsis screen is negative. Does the patient have a suspected source of infection? No. Patient's initial sepsis screen is negative. Risk Assessment: Do you want to hurt yourself or someone else? Patient reports no desire to harm self or others. Onset of symptoms was July 14, 2020. 09:30 Method Of Arrival: Wheelchair hb 09:30 Acuity: DAVID 3 hb Historical: - Allergies: 09:33 No Known Allergies; hb - Home Meds: 09:33 lorazepam 1 mg Oral tab [Active]; propranolol 40 mg Oral tab 1 tab 2 times per day hb [Active]; - PMHx: 09:33 Anxiety; COPD; hb - PSHx: 09:33 Tubal ligation; Knee surgery; hb - Immunization history:: Adult Immunizations up to date. - Social history:: Smoking status: Patient reports the use of cigarette tobacco products, smokes one pack cigarettes per day. Screenin:39 Abuse screen: Denies threats or abuse. Nutritional screening: No deficits noted. tw2 Tuberculosis screening: No symptoms or risk factors identified. Fall Risk Secondary diagnosis (15 points) impaired mobility. Assessment: 09:30 Reassessment: SHARLA Metcalf at bedside assessing pt. ronnell 09:30 General: Appears in no apparent distress. uncomfortable, Behavior is cooperative, jl7 anxious. Pain: Complains of pain in right arm Pain currently is 7 out of 10 on a pain scale. Neuro: Level of Consciousness is awake, alert, obeys commands, Oriented to person, place, time, situation. Cardiovascular: Patient's skin is warm and dry. Respiratory: Airway is patent Respiratory effort is even, unlabored, Respiratory pattern is regular, symmetrical. Derm: Skin is pink, warm \\T\\ dry. 10:45 Reassessment: Pt requesting walker, states "I had a roller chair but it's falling apart jl7 and I still just don't feel steady on my feet after my fall a long time ago." ERP notified, walker provided per request. Vital Signs: 09:30 BP 167 / 87; Pulse 102; Resp 16; Temp 97.1; Pulse Ox 95% on R/A; Pain 7/10; hb 10:23 BP 139 / 70; Pulse 84; Resp 17; Pulse Ox 95% on R/A; tw2 ED Course: 09:21 Patient arrived in ED. mr 09:24 Placed in gown. Bed in low position. Call light in reach. residential monitor on. Pulse ox tw2 on. NIBP on. Warm blanket given. 09:25 Dixon Finnegan PA is PHCP. [facility] 09:25 Anand Fish MD is Attending Physician. [facility] 09:31 Lennox Tianjero RN is Primary Nurse. jl7 09:32 Triage completed. hb 09:33 Arm band placed on. hb 10:51 No provider procedures requiring assistance completed. Patient did not have IV access jl7 during this emergency room visit. 10:52 walker provided. jl7 Administered Medications: 09:41 Drug: Ativan 1 mg Route: IM; Site: right deltoid; jl7 10:00 Follow up: Response: No adverse reaction; Marked relief of symptoms jl7 Outcome: 10:23 Discharge ordered by . [facility] 10:51 Discharged to home ambulatory. jl7 10:51 Condition: stable 10:51 Discharge instructions given to patient, Instructed on discharge instructions, follow up and referral plans. medication usage, Demonstrated understanding of instructions, follow-up care, medications, Prescriptions given X 1. 10:53 Patient left the ED. jl7 Signatures: Dixon Finnegan PA PA zeferino Tim Windy mr ValerioTamy RN RN Maureen Steen RN RN 2 Tinajero, Jahala, RN RN jl7
[2020-07-17 13:25] VITALS: TEMP 97.1; O2SAT 95
[2020-07-17 13:27] VITALS: BP 139/70
--- NOTE | 2020-07-21 06:13 | EKG ---
Test Date: 2020-07-17 Test Time: 09:37:07 [employer]ic[employer] Pilot: CECILY MEASUREMENT RESULTS: Intervals: Rate: 93 IL: 134 QRSD: 74 QT: 352 QTc: 437 Prince: P: 58 IL: 134 QRS: 25 T: 57 INTERPRETIVE STATEMENTS: Normal sinus rhythm Normal ECG Compared to ECG 05/23/2020 15:54:04 No significant changes Electronically Signed On 07-21-20 06:10:13 ARTIST REPRESENTATIVE by Myles Lorenzo
== END 2020-07-17 10:53 | disposition home or self-care (01) ==
LOC: ER 09:17
DX: F41.9 Anxiety disorder, unspecified (principal); J44.9 Chronic obstructive pulmonary disease, unspecified; F17.210 Nicotine dependence, cigarettes, uncomplicated
CPT/HCPCS: 93005; 96372; 99284

== ENCOUNTER 2020-07-25 13:13 | Emergency (ER) | payer OTHER ==
--- OUTSIDE RECORDS SUMMARY | 2020-07-25 13:15 | XMS REPORT | Continuity of Care Document ---
:1945 Author Organization [facility] t Address [address] [place] [address] Care Team Providers Name Role Phone Onel Florence PTA Attending Clinician Unavailable Katharine Parra PT Attending Clinician Unavailable Doug Abraham Attending Clinician Problems Condition Condition Condition Status Onset Resolution Last Treating Co mments Source Name Details Category Date Date Treatment Clinician Date M54.5 Diagnosis Active 2016-12-02 Mem oria M53.3 4-10 13:08:00 l M54.5 00:00: [place] M53.3 00 Active 11/27/2016 [facility] LOW BACK Diagnosis Active 2016-12-02 M emoria PAIN 13:08:00 l LOW BACK [place] PAIN Active [facility] SACROCOCCY Diagnosis Active 2016-12-02 Memoria GEAL 13:08:00 l DISORDERS, [place] NOT SACROCOCCY ELSEWHERE GEAL DISORDERS, NOT ELSEWHERE Active [facility] Allergies, Adverse Reactions, Alerts This patient has no known allergies or adverse reactions. Social History Social Habit Start Date Stop Date Quantity Comments Source Social History 2016-12-03 2016-12-03 [facility] ermann 04:59:00 04:59:00 Medications This patient has no known medications. Procedures This patient has no known procedures. Encounters Start End Encounter Admission Attending Care Care Encounter Source Date/Time Date/Time Type Type Clinicians Facility Department ID 2019-04-04 2019-04-04 Ancillary ADAM Florence [id number] 13:02:56 13:47:56 Visit Nina Jansen [id number] [place] [id number] Professio [phone] [facility] [address] [facility] 2019-03-26 2019-03-26 Ancillary Naman [facility] [id number] 13:01:20 13:46:20 Visit Nina Jansen [id number] [place] [id number] Professio [phone] [facility] [address] [facility] 2019-03-21 2019-03-21 Ancillary Fidel [facility] [id number] 13:05:35 13:50:35 Visit Brigitte Jansen [id number] [place] [id number] Professio [phone] [facility] [address] [facility] 2019-03-19 2019-03-19 Case Naman [facility] [id number] 00:00:00 00:00:00 Management Nina Jansen [id number] [place] [id number] Professio [phone] [facility] [address] [facility] 2019-03-14 2019-03-14 Ancillary Fidel [facility] [id number] 13:02:56 14:00:25 Visit Brigitte Jansen [id number] [place] [id number] Professio [phone] [facility] [address] [facility] 2016-12-02 2016-12-02 Outpatient CHRISTINA Abraham [id number] 12:58:00 23:59:00 Lonnie Genao Results This patient has no known results.
--- OUTSIDE RECORDS SUMMARY | 2020-07-25 13:15 | XMS REPORT | Continuity of Care Document ---
:1945 Author Organization [facility] Care Team Providers Name Role Phone [employer] Unavailable Un available Problems Problem Status Onset [...] PROCEDURE: MAGNETIC RESONANCE IMAGING OF THE SAC [facility] 12[facility]2016 [facility] contrast [facility] REASON FOR EXAM: [...] without re tropulsion estimated at 37%. 3. [place] spondylosis and facet arthropathy. 4. Multilevel posterior [...] Location Location Encounter Encounter Reason Attending ADM SC Stat Source Details Type Number For Provider Date Date Visit [facility] Outpatient [id number] Lonnie 12/02 12/03 RICHY Abraham /2016 [facility] Outpatient [id number] KARLY 10/16 [facility] /2018 [place] Procedures No Data Provided [...]
--- NOTE | 2020-07-25 15:31 | EDPHYS ---
Physician Documentation [facility] Name: Trisha Senior Age: 75 yrs Sex: Female : 1945 Arrival Date: 07/25/2020 Time: 13:14 Bed 5 Private MD: ED Physician Anand Fish HPI: 07/25 15:27 This 75 yrs old Female presents to ER via Wheelchair with complaints of rn refill. 15:27 The patient presents to the emergency department requesting refill(s) for: ativan. The rn patient chronically suffers from anxiety. The patient has experienced similar episodes in the past, chronically. The patient has been recently seen by a physician:. Reports has an appt with psychiatry coming up, has been taking ativan for years, her pcp just retired, now unable to get refill. Seen here last week, reports 10 pills lasted her a week. No other acute complaints. . Historical: - Allergies: 13:59 No Known Allergies; ca1 - PMHx: 13:59 Anxiety; COPD; ca1 - PSHx: 13:59 Tubal ligation; Knee surgery; ca1 - Immunization history:: Adult Immunizations up to date, Flu vaccine is not up to date. - Social history:: Smoking status: Patient reports the use of cigarette tobacco products, smokes one-half pack cigarettes per day. - Family history:: not pertinent. - Hospitalizations: : No recent hospitalization is reported. ROS: 15:27 Constitutional: Negative for fever, chills, and weight loss, Eyes: Negative for injury, rn pain, redness, and discharge, Neck: Negative for injury, pain, and swelling, Cardiovascular: Negative for chest pain, palpitations, and edema, Respiratory: Negative for shortness of breath, cough, wheezing, and pleuritic chest pain, Abdomen/GI: Negative for abdominal pain, nausea, vomiting, diarrhea, and constipation, Back: Negative for injury and pain, MS/Extremity: Negative for injury and deformity, Skin: Negative for injury, rash, and discoloration, Neuro: Negative for headache, weakness, numbness, tingling, and seizure. Exam: 15:27 Constitutional: This is a well developed, well nourished patient who is awake, alert, rn and in no acute distress. Head/Face: Normocephalic, atraumatic. Eyes: Pupils equal round and reactive to light, extra-ocular motions intact. Lids and lashes normal. Conjunctiva and sclera are non-icteric and not injected. Cornea within normal limits. Periorbital areas with no swelling, redness, or edema. Cardiovascular: Regular rate and rhythm. No pulse deficits. Respiratory: No increased work of breathing, no retractions or nasal flaring. Skin: Warm, dry MS/ Extremity: Pulses equal, no cyanosis Neuro: Awake and alert, GCS 15, oriented to person, place, time, and situation. Cranial nerves II-XII grossly intact. Motor strength 5/5 in all extremities. Sensory grossly intact. Cerebellar exam normal. Normal gait. Vital Signs: 13:53 BP 111 / 69; Pulse 100; Resp 18 S; Temp 97.1(TE); Pulse Ox 97% on R/A; Weight 63.96 kg ca1 (R); Height 5 ft. 6 in. (167.64 cm) (R); 13:53 Body Mass Index 22.76 (63.96 kg, 167.64 cm) ca1 MDM: 15:09 Patient medically screened. rn 15:26 ED course: P[place] score 180, no active prescription.. 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 Counseling: I had a detailed discussion with the patient and/or guardian regarding: the historical points, exam findings, and any diagnostic results supporting the discharge/admit diagnosis, the need for outpatient follow up, to return to the emergency department if symptoms worsen or persist or if there are any questions or concerns that arise at home. Special discussion: I discussed with the patient/guardian in detail that at this point there is no indication for admission to the hospital. It is understood, however, that if the symptoms persist or worsen the patient needs to return immediately for re-evaluation. Based on the history and exam findings, there is no indication for further emergent testing or inpatient evaluation. I discussed with the patient/guardian the need to see the primary care provider for further evaluation of the symptoms. I discussed with the patient/guardian the need to see the psychiatrist for further evaluation of the symptoms. Administered Medications: No medications were administered Disposition: 07/25/20 15:30 Discharged to Home. Impression: Anxiety disorder, unspecified. - Condition is Stable. - Discharge Instructions: Panic Attacks, Generalized Anxiety Disorder. - Prescriptions for Ativan 0.5 mg Oral Tablet - take 1 tablet by ORAL route every 12 hours As needed; 10 tablet. - Medication Reconciliation Form, Thank You Letter, Antibiotic Education, Prescription Opioid Use form. - Follow up: Private Physician; When: As needed; Reason: Recheck today's complaints, Re-evaluation by your physician. - Problem is chronic. - Symptoms are unchanged. Signatures: Anand Fish MD MD rn Hall, Patricia, RN RN [facility], COLTEN Clay RN [facility] Corrections: (The following items were deleted from the chart) 15:57 15:30 07/25/2020 15:30 Discharged to Home. Impression: Anxiety disorder, unspecified. ph Condition is Stable. Forms are Medication Reconciliation Form, Thank You Letter, Antibiotic Education, Prescription Opioid Use. Follow up: Private Physician; When: As needed; Reason: Recheck today's complaints, Re-evaluation by your physician. Problem is chronic. Symptoms are unchanged. rn
--- NOTE | 2020-07-25 15:31 | ER ---
Nurse's Notes [facility] Name: Trisha Senior Age: 75 yrs Sex: Female : 1945 Arrival Date: 07/25/2020 Time: 13:14 Bed 5 Private MD: Diagnosis: Anxiety disorder, unspecified Presentation: 07/25 13:53 Chief complaint: Patient states: I had stroke on , it affected my R hand. I was ca1 here the with a panic attack. Today, my ring finger on my R hand is swelling, my right hand is tingly. I am fixing to have another panic attack cause I don't have my Lorazepam anymore. I've been trying to get to the doctors you gave me a list of but I can't get to them. Coronavirus screen: Client denies travel out of the [place] in the last 14 days. At this time, the client does not indicate any symptoms associated with coronavirus-19. Ebola Screen: Patient negative for fever greater than or equal to 101.5 degrees Fahrenheit, and additional compatible Ebola Virus Disease symptoms Patient denies exposure to infectious person. Patient denies travel to an Ebola-affected area in the 21 days before illness onset. No symptoms or risks identified at this time. Initial Sepsis Screen: Does the patient meet any 2 criteria? Yes Does the patient have a suspected source of infection? No. Patient's initial sepsis screen is negative. Risk Assessment: Do you want to hurt yourself or someone else? Patient reports no desire to harm self or others. Onset of symptoms was July 25, 2020. 13:53 Method Of Arrival: Wheelchair ca1 13:53 Acuity: DAVID 3 ca1 Historical: - Allergies: 13:59 No Known Allergies; ca1 - PMHx: 13:59 Anxiety; COPD; ca1 - PSHx: 13:59 Tubal ligation; Knee surgery; ca1 - Immunization history:: Adult Immunizations up to date, Flu vaccine is not up to date. - Social history:: Smoking status: Patient reports the use of cigarette tobacco products, smokes one-half pack cigarettes per day. - Family history:: not pertinent. - Hospitalizations: : No recent hospitalization is reported. Screenin:34 Abuse screen: Denies threats or abuse. Denies injuries from another. Nutritional ph screening: No deficits noted. Tuberculosis screening: No symptoms or risk factors identified. Fall Risk None identified. Assessment: 15:33 General: Appears in no apparent distress. comfortable, slender, Behavior is ph cooperative, appropriate for age, anxious. Pain: Denies pain. Neuro: Level of Consciousness is awake, alert, obeys commands, Oriented to person, place, time, situation. Neuro: Reports numbness in right hand. Cardiovascular: Capillary refill < 3 seconds in bilateral fingers Patient's skin is warm and dry. Respiratory: Airway is patent Respiratory effort is even, unlabored, Respiratory pattern is regular, symmetrical. GI: No signs and/or symptoms were reported involving the gastrointestinal system. Derm: Skin is intact, Skin is pink, warm \T\ dry. Musculoskeletal: Circulation, motion, and sensation intact. Vital Signs: 13:53 BP 111 / 69; Pulse 100; Resp 18 S; Temp 97.1(TE); Pulse Ox 97% on R/A; Weight 63.96 kg ca1 (R); Height 5 ft. 6 in. (167.64 cm) (R); 13:53 Body Mass Index 22.76 (63.96 kg, 167.64 cm) ca1 ED Course: 13:14 Patient arrived in ED. as 13:58 Triage completed. ca1 13:59 Arm band placed on right wrist. ca1 15:09 Anand Fish MD is Attending Physician. rn 15:10 Hiral Senior, COLTEN is Primary Nurse. ph 15:34 Patient has correct armband on for positive identification. Bed in low position. Call light in reach. Side rails up X 1. 15:53 No provider procedures requiring assistance completed. Patient did not have IV access ss during this emergency room visit. Administered Medications: No medications were administered Outcome: 15:30 Discharge ordered by . rn 15:57 Discharged to home via wheelchair. ph 15:57 Condition: good 15:57 Discharge instructions given to patient, Instructed on discharge instructions, follow up and referral plans. medication usage, Demonstrated understanding of instructions, follow-up care, medications, Prescriptions given X 1. 15:57 Patient left the ED. ph Signatures: Rema Chen Roman, MD MD rn Smirch, Shelby, RN RN Hiral Senior RN RN AcobDanna RN RN [facility]
== END 2020-07-25 15:57 | disposition home or self-care (01) ==
LOC: ER 13:13
DX: F41.9 Anxiety disorder, unspecified (principal); J44.9 Chronic obstructive pulmonary disease, unspecified; F17.210 Nicotine dependence, cigarettes, uncomplicated
CPT/HCPCS: 99282

== ENCOUNTER 2020-09-06 12:47 | Emergency (ER) | payer OTHER ==
--- OUTSIDE RECORDS SUMMARY | 2020-09-06 12:51 | XMS REPORT | Continuity of Care Document ---
:1945 Author Organization [facility] Care Team Providers Name Role Phone [facility] Unavailable Un available Problems Problem Status Onset [...] PROCEDURE: MAGNETIC RESONANCE IMAGING OF THE SAC [facility] 12/02/2016 [facility] contrast MRI REASON FOR EXAM: [...] PROCEDURE: LUMBAR SPINE MAGNETIC RESONANCE IMAGI 12/02/2016 [facility] contrast MRI CLINICAL INDICATION: M54.5. Low back [...] without re tropulsion estimated at 37%. 3. [place] spondylosis and facet arthropathy. 4. Multilevel posterior [...] Type Number For Provider Date Date Visit [facility] Outpatient [id number] Lonnie 12/02 12/03 RICHY Abraham /2016 [facility] Outpatient [id number] KARLY 10/16 [facility] /2018 [place] Procedures No Data Provided for This Section Assessment and Plan No Data Provided for This Section Plan of Care No Data Provided for This Section Social History Social History Date Source No data available for this 12/03/2016 [facility] section Family History No Data Provided for This Section Advance Directives No Data Provided for This Section Functional Status No Data Provided for This Section
--- OUTSIDE RECORDS SUMMARY | 2020-09-06 12:51 | XMS REPORT | Summary of Care ---
:1945 Author Organization [facility] Address [address] [place] [address] Care Team Providers Name Role Phone Kendrick Amaya Primary Care Provider Reason for Referral (Routine) Status Reason Specialty Diagnoses / Referred By Referred To Procedures Contact Contact New Request Physical Therapy Diagnoses Trigger middle finger of right hand Oneil Esquivel Procedures CONSULT/REFERRAL PHYSICAL THERAPY MD Edwin [address] [facility] [place] [address] Reason for Visit Reason Comments Follow-up Right hand pain - numbness Encounter Details Date Type Department Care Team Description 08/05/2020 Office Visit [facility] Orthopaedic Oneil Esquivel middle finger Surgery- Inderjit Pineda MD of right hand (Primary [address], [address]) [address] [facility] [place] [address] [place], [place] [phone] [address] Allergies No Known Allergiesdocumented as of this encounter (statuses as of 08/06/2020) Medications Medication Sig Dispensed Refills Start Date End Date Status LORazepam (ATIVAN) 1 mg Take 1 mg by 0 Active tablet mouth. PROPRANOLOL HCL Take by mouth. 0 Active (PROPRANOLOL ORAL) ondansetron 4 mg tablet Take 1 tablet by 20 tablet 0 8 Active mouth every 8 (eight) hours as needed for Nausea and Vomiting (N/V). albuterol 2.5 mg /3 mL U 3 ML VIA NEB 0 06/03/2020 Active (0.083 %) nebulizer TID PRN solution methylPREDNISolone Take 21 tablets 1 Each 0 08/05/2020 Active (MEDROL, ERICA,) 4 mg by mouth tabletsIndications: SEE-INSTRUCTIONS Trigger middle finger of . 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 Hand Pain Incident onset: 07/16/2020. There was no injury mechanism. The pain is present in the right hand. Quality: constant. The pain is at a severity of 7/10. Associated symptoms include numbness. Associated symptoms comments: stiffness. She has tried heat, acetaminophen and rest for the symptoms. Allergies Trisha has No Known Allergies. Medications Outpatient Medications Prior to Visit Medication Sig Dispense Refill albuterol 2.5 mg /3 mL (0.083 %) nebulizer solution U 3 ML VIA NEB TID PRN ondansetron 4 mg tablet Take 1 tablet by mouth every 8 (eight) hours as needed for Nausea and Vomiting (N/V). 20 tablet 0 PROPRANOLOL HCL (PROPRANOLOL ORAL) Take by mouth. LORazepam (ATIVAN) 1 mg tablet Take 1 mg by mouth. No facility-administered medications prior to visit. Histories History reviewed. No pertinent past medical history. History reviewed. No pertinent surgical history. Social History Socioeconomic History Marital status: Spouse name: Not on file Number of children: Not on file Years of education: Not on file Highest education level: Not on file Occupational History Not on file Social Needs Financial resource strain: Not on file Food insecurity Worry: Not on file Inability: Not on file Transportation needs Medical: Not on file Non-medical: Not on file Tobacco Use Smoking status: Current Every Day Smoker Smokeless tobacco: Never Used Substance and Sexual Activity Alcohol use: Yes Drug use: Not on file Sexual activity: Not on file Lifestyle Physical activity Days per week: Not on file Minutes per session: Not on file Stress: Not on file Relationships Social connections Talks on phone: Not on file Gets together: Not on file Attends congregation service: Not on file Active member of club or organization: Not on file Attends meetings of clubs or organizations: Not on file Relationship status: Not on file Intimate partner violence Fear of current or ex partner: Not on file Emotionally abused: Not on file Physically abused: Not on file Forced sexual activity: Not on file Other Topics Concern Not on file Social History Narrative Not on file History reviewed. No pertinent family history. Review of Systems Constitutional: Positive for activity change. HENT: Negative. Eyes: Negative. Respiratory: Negative. Cardiovascular: Negative. Gastrointestinal: Negative. Genitourinary: Negative. Musculoskeletal: Positive for joint swelling. Negative for gait problem. Skin: Negative. Neurological: Positive for weakness and numbness. Psychiatric/Behavioral: Negative. Endocrine: Endocrine negative Vital Signs BP (!) 151/85 | Pulse 111 | Ht 67" (170.2 cm) | Wt 71.2 kg (157 lb) | BMI 24.59 kg/m Physical Exam Musculoskeletal: Comments: General: Well-developed well-nourished oriented to person place and time HEENT normocephalic atraumatic atraumatic pupils equal round reactive to light extraocular muscles intact Cervical thoracic and lumbar spine without focal deficit normal kyphosis and lordosis Chest clear to auscultation and percussion Cardiovascular regular rate and rhythm without gallop rub or murmur soft without organomegaly Normal bowel sounds Neurologic: Focal myotome or dermatomal deficits Vascular: Intact symmetrical bilateral upper and lower extremities Skin without stasis varicosities or breakdown Extremities without cyanosis clubbing or edema Lymphatics no peripheral lymphedema Psych normal mood and affect. Neurovascular function is intact. To include brisk capillary refill warm pink skin active motor function and sensory function intact. Assessment/Plan Trigger middle finger of right hand [M65.331] Medrol dose erica Next step would be an injection if needed. Follow up prn. documented in this encounter Plan of Treatment Date Type Specialty Care Team Description 08/09/2020 Office Visit Family Medicine Matt Cole MD [address] [place] [address] [phone] Health Maintenance Due Date Last Done Comments Depression Screening 1957 DTaP,Tdap,and Td Vaccines (1 - Tdap) 1965 COLON CANCER SCREENING ANNUAL FIT/FOBT 1996 COLON CANCER SCREENING FIT DNA EVERY 3 YEARS 1996 COLON CANCER SCREENING SIGMOIDOSCOPY EVERY 5 YEARS 1996 COLONOSCOPY 1996 Colorectal Cancer Screening 1996 Zoster Recombinant Vaccine (SHINGRIX) (1 of 2) 1996 LUNG CANCER SCREEN: Recommended for age 55-80 with 30 2001 + pack year history Breast Cancer Screening (MAMMOGRAM) 12/23/2009 12/23/2008 Medicare Wellness Visit 2011 Osteoporosis Screening 2011 PNEUMOCOCCAL VACCINES 65+ (1 of 1 - PPSV23) 2011 INFLUENZA VACCINE (#1) 2020 HEPATITIS C (HCV) SCREEN Completed 09/03/2008 documented as of this encounter Results Not on filedocumented in this encounter Visit Diagnoses Diagnosis Trigger middle finger of right hand - Pr imary Trigger finger (acquired) documented in this encounter Insurance Payer Benefit Plan Subscriber ID Effective Phone Address Typ e / Group Dates [facility] [id number] 2020-Pre Med [facility] - MEDICARE sent Adv HMO MANAGED ADVANTAGE MEDICARE [facility] MEDICAID OF [id number] 2019-Pres [phone] Medi caid [place] ent [id number] [place] [address] [phone] (Work) documented as of this encounter
--- OUTSIDE RECORDS SUMMARY | 2020-09-06 12:51 | XMS REPORT | Continuity of Care Document ---
:1945 Author Organization [facility] t Address [address] [place] [address] Care Team Providers Name Role Phone Edwin Esquivel MD Attending Clinician Nay Paez Attending Clinician Doctor Unassigned, Name Attending Clinician Unavailable Doug Abraham Attending Clinician Problems Condition Condition Condition Status Onset Resolution Last Treating Co mments Source Name Details Category Date Date Treatment Clinician Date M54.5 Diagnosis Active 2016-12-02 Mem oria M53.3 4-10 13:08:00 l M54.5 00:00: Jose M53.3 00 Active 11/27/2016 [facility] LOW BACK Diagnosis Active 2016-12-02 M emoria PAIN 13:08:00 l LOW BACK Tacos n PAIN Active [facility] SACROCOCCY Diagnosis Active 2016-12-02 Memoria GEAL 13:08:00 l DISORDERS, Tacos n NOT SACROCOCCY ELSEWHERE GEAL DISORDERS, NOT ELSEWHERE Active [facility] Allergies, Adverse Reactions, Alerts This patient has no known allergies or adverse reactions. Social History Social Habit Start Date Stop Date Quantity Comments Source Social History 2016-12-03 2016-12-03 [facility] christoefr 04:59:00 04:59:00 Medications This patient has no known medications. Procedures This patient has no known procedures. Encounters Start End Encounter Admission Attending Care Care Encounter Source Date/Time Date/Time Type Type Clinicians Facility Department ID 2020-08-31 2020-08-31 Prep For ADAM Esquivel [id number] 00:00:00 00:00:00 Surgery Oneil Pineda [facility] [id number] Surgical [id number] Specialti [id number] [address] [place] 2020-08-31 2020-08-31 Telephone Zoila [facility] [id number] 00:00:00 00:00:00 [facility] [id number] Surgical [id number] Specialti [id number] [address] [place] 2020-08-25 2020-08-25 Office Alvin [facility] [id number] 1949 14:23:40 14:48:55 Visit Oneil Pineda [facility] [id number] Surgical [id number] Specialti [id number] [address] [place] 2020-08-25 2020-08-25 Orders Doctor SERVANDO [id number] 00:00:00 00:00:00 Only Unassigned, BRIGETTE [id number] [facility] [id number] 2016-12-02 2016-12-02 Outpatient CHRISTINA Abraham [facility] [id number] 12:58:00 23:59:00 Lonnie Genao Results This patient has no known results.
--- OUTSIDE RECORDS SUMMARY | 2020-09-06 12:52 | XMS REPORT | Summary of Care ---
:1945 Author Organization [facility] Address [address] [place] [address] Care Team Providers Name Role Phone Kendrick Amaya Primary Care Provider Reason for Visit Reason Comments Follow-up right hand middle finger is not getting better (per patient) (Routine) Status Reason Specialty Diagnoses / Referred By Referred To Procedures Contact Contact Closed ORT-ORTHOPAEDIC Diagnoses RT HAND F/U HAND PAIN Oneil Esquivel [facility] / Procedures CONSULT/REFERRAL ORTHOPAEDIC SURGERY FOLLOW-UP VISIT MD Edwin Pineda MD Orthopedic Surgery [address] [place] [address] Phone: Fax: Encounter Details Date Type Department Care Team Description 08/25/2020 Office Visit [facility] Orthopaedic Oneil Esquivel middle finger Surgery- Inderjit Pineda MD of right hand (Primary [address], [address]) [place] [address] [place] [address] [place], [place] [phone] [address] Allergies No Known Allergiesdocumented as of this encounter (statuses as of 08/25/2020) Medications Medication Sig Dispensed Refills Start Date [...] as of this encounter (statuses as of 08/25/2020) Active Problems No known active problemsdocumented as of this encounter (statuses as of 08/25/2020) Social History Tobacco Use Types Packs/Day Years Used Date Current Every Day Smoker Smokeless Tobacco: Never Used Alcohol Use Drinks/Week oz/Week Comments Yes Sex Assigned at Date Recorded Not on file COVID-19 Exposure Response Date Recorded In the last month, have you been in contact with No / Unsure 08/25/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 documented as of this encounter Last Filed Vital Signs Vital Sign Reading Time Taken Comments Blood Pressure 138/81 08/25/2020 2:27 PM MUSIC THEORY PROFESSOR Pulse 91 08/25/2020 2:27 PM MUSIC THEORY PROFESSOR Temperature - - Respiratory Rate - - Oxygen Saturation - - Inhaled Oxygen Concentration - - Weight 69.9 kg (154 lb) 08/25/2020 2:27 PM MUSIC THEORY PROFESSOR Height - - Body Mass Index 24.12 08/05/2020 2:12 PM MUSIC THEORY PROFESSOR documented in this encounter Progress Notes Oneil Esquivel MD - 08/25/2020 2:30 PM CST Cc: No chief complaint on file. Patient is here for follow-up, states that was taking medication but when she ran out hand started hurting again. Trisha Senior is a 75 year old female. Follow up right middle finger trigger finger. Medrol alleviated pain for a short time. Finger is locked today, unable to straighten without pain. Allergies Trisha has No Known Allergies. Medications Outpatient Medications Prior to Visit Medication Sig Dispense Refill albuterol 2.5 mg /3 mL (0.083 %) nebulizer solution U 3 ML VIA NEB TID PRN methylPREDNISolone (MEDROL, ERICA,) 4 mg tablets Take 21 tablets by mouth SEE- INSTRUCTIONS. followpackage directions 1 Each 0 ondansetron 4 mg tablet Take 1 tablet by mouth every 8 (eight) hours as needed for Nausea and Vomiting (N/V). 20 tablet 0 PROPRANOLOL HCL (PROPRANOLOL ORAL) Take by mouth. LORazepam (ATIVAN) 1 mg tablet Take 1 mg by mouth. No facility-administered medications prior to visit. Histories No past medical history on file. No past surgical history on file. Social History Socioeconomic History Marital status: Spouse [...] file Gets together: Not on file Attends cheondoism service: Not on file Active member of [...] file Social History Narrative Not on file No family history on file. Review of Systems Constitutional: Positive for activity change. HENT: Negative. Eyes: Negative. Respiratory: Positive for wheezing. Breasts: Negative. Cardiovascular: Negative. Gastrointestinal: Negative. Genitourinary: Negative. Musculoskeletal: Positive for joint swelling and myalgias. Skin: Negative. Neurological: Negative. Psychiatric/Behavioral: Negative. Endocrine: Endocrine negative Vital Signs There were no vitals taken for this visit. Physical Exam Musculoskeletal: Comments: General: Well-developed well-nourished [...] Trigger middle finger of right hand [M65.331] Trigger Finger Release right middle finger at [facility] on 09/13/2020. I have discussed the patient's physical exam and reviewed their x-rays/imaging/results with them in detail. Discussed surgery at great lengths regarding risks and benefits. Explained as with any procedure there may be pain, damage to nerve and vascular structures, fat embolism, need for additional surgery, failure of procedure to relieve pain. We spoke of recovery time, expected outcome, possible restrictions and anticipation return to work date as well as possible rehabilitation if needed or required after the surgery. All questions have been answered. Condition and plans were discussed with patient, who expressed understanding and is agreeable to theplan. C THEORY PROFESSOR documented in this encounter Plan of Treatment Health Maintenance Due Date Last Done Comments [...] - PPSV23) 2011 INFLUENZA VACCINE (#1) 2020 Depression Screening 08/25/2021 08/25/2020 HEPATITIS C (HCV) SCREEN Completed 09/03/2008 documented as of this encounter Results Not on filedocumented in this encounter Visit Diagnoses Diagnosis Trigger middle finger of right hand - Pr imary Trigger finger (acquired) documented in this encounter Insurance Payer Benefit Plan Subscriber ID Effective Phone Address Typ e / Group Dates [facility] [id number] 2018-Saw [facility]/AA nt RP TMHP MEDICAID OF [id number] 2019-Saw [phone] [facility] [phone] [place] [address] [phone] (Work) documented as of this encounter
--- OUTSIDE RECORDS SUMMARY | 2020-09-06 12:52 | XMS REPORT | Summary of Care ---
:1945 Author Organization [facility] Address [address] [place] [address] Care Team Providers Name Role Phone Kendrick Amaya Primary Care Provider Encounter Details Date Type Department Care Team Description 08/31/2020 Prep For Surgery [facility] Oneil Esquivel Trigger middle finger Orthopaedic Surgery- MD Edwin of right hand Inderjit [facility] [address] (Primary Dx) [address] [facility], [facility] [place] [phone] Allergies No Known Allergiesdocumented as of this encounter (statuses as of 08/31/2020) Medications Medication Sig Dispensed Refills Start Date [...] as of this encounter (statuses as of 08/31/2020) Active Problems No known active problemsdocumented as of this encounter (statuses as of 08/31/2020) Social History Tobacco Use Types Packs/Day Years Used Date Current Every Day Smoker Smokeless Tobacco: Never Used Alcohol Use Drinks/Week oz/Week Comments Yes Sex Assigned at Date Recorded Not on file COVID-19 Exposure Response Date Recorded In the last month, have you been in contact with No / Unsure 08/25/2020 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 documented as of this encounter Last Filed Vital Signs Vital Sign Reading Time Taken Comments Blood Pressure - - Pulse - - Temperature - - Respiratory Rate - - Oxygen Saturation - - Inhaled Oxygen Concentration - - Weight 69.9 kg (154 lb) 08/31/2020 12:48 PM CASHIER AND SALESPERSON Height - - Body Mass Index 24.12 08/05/2020 2:12 PM CASHIER AND SALESPERSON documented in this encounter Plan of Treatment Name Type Priority Associated Diagnoses Order S chedule CBC WITH DIFF LAB Routine Trigger middle finger Expec shyla: of right hand 08/31/2020, Expires: 2021 BASIC METABOLIC PANEL LAB Routine Trigger middle fing er Expected: (NA, K, CL, CO2, of right hand 08/31/2020 , GLUCOSE, BUN, Expires: 08/31 CREATININE, CA) XR CHEST 2 VW IMAGING Routine Trigger middle finger Expec shyla: of right hand 08/31/2020, Expires: 2021 EKG-12 LEAD ROUTINE HEART STATION Routine Trigger middle finge r Ordered: 08/31/2020 of right hand Health Maintenance Due Date Last Done Comments [...] Phone Address Typ e / Group Dates [facility] MEDICAID OF [id number] 2019-Saw [phone] icaid [place] nt [id number] [place] [address] [facility] [id number] 2018-Saw [facility]/AA nt RP documented as of this encounter
--- OUTSIDE RECORDS SUMMARY | 2020-09-06 12:52 | XMS REPORT | Summary of Care ---
:1945 Author Organization [facility] Address [address] [place] [address] Care Team Providers Name Role Phone Kendrick Amaya Primary Care Provider Reason for Referral (Routine) Status Reason Specialty Diagnoses / Referred By Referred To Procedures Contact Contact New Request Physical Therapy Diagnoses Trigger middle finger of right hand Oneil Esquivel Procedures CONSULT/REFERRAL PHYSICAL THERAPY MD Edwin [address] [facility] [place] [address] Reason for Visit Reason Comments Follow-up Right hand pain - numbness Encounter Details Date Type Department Care Team Description 08/05/2020 Office Visit [facility] Orthopaedic Oneil Esquivel middle finger Surgery- Inderjit iPneda MD of right hand (Primary [address], [address]) [address] [facility] [place] [address] [place], [place] [phone] [phone] Allergies No Known Allergiesdocumented as of [...] with No / Unsure 08/05/2020 2:03 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 documented as of this encounter Last Filed Vital Signs Vital Sign Reading Time Taken Comments Blood Pressure 143/87 08/05/2020 2:18 PM TUBING MACHINE TENDER Pulse 110 08/05/2020 2:18 PM TUBING MACHINE TENDER Temperature - - Respiratory Rate - - Oxygen Saturation - - Inhaled Oxygen Concentration - - Weight 71.2 kg (157 lb) 08/05/2020 2:12 PM TUBING MACHINE TENDER Height 170.2 cm (5' 7") 08/05/2020 2:12 PM TUBING MACHINE TENDER Body Mass Index 24.59 08/05/2020 2:12 PM TUBING MACHINE TENDER documented in this encounter Progress Notes Oneil [...] file Gets together: Not on file Attends rastafari service: Not on file Active member of [...] Office Visit Family Medicine Matt Cole MD [address] [place] [phone] Health Maintenance Due Date Last Done [...] Phone Address Typ e / Group Dates [facility] [id number] 2020-Pre Med [facility] - MEDICARE sent Adv HMO MANAGED ADVANTAGE MEDICARE [facility] MEDICAID OF [id number] 2019-Pres [phone] Medi caid [place] ent [id number] [place] [address] [phone] (Work) documented as of this encounter
--- OUTSIDE RECORDS SUMMARY | 2020-09-06 12:52 | XMS REPORT | Summary of Care ---
:1945 Author Organization [facility] Address [address] [place] [address] Care Team Providers Name Role Phone Kendrick [...] [address] [place] [phone] Phone: Fax: Encounter Details Date Type Department Care Team Description 08/25/2020 Office Visit [facility] Orthopaedic Oneil Esquivel middle finger Surgery- Inderjit Pineda MD of right hand (Primary [address], [address]) [place] [address] [place], [place] [phone] Allergies No Known Allergiesdocumented as of [...] with No / Unsure 08/25/2020 2:22 PM PRUNER someone who was confirmed or suspected to have Coronavirus / COVID-19? documented as of this encounter Last Filed Vital Signs Vital Sign Reading Time Taken Comments Blood Pressure 138/81 08/25/2020 2:27 PM PRUNER Pulse 91 08/25/2020 2:27 PM PRUNER Temperature - - Respiratory Rate - - Oxygen Saturation - - Inhaled Oxygen Concentration - - Weight 69.9 kg (154 lb) 08/25/2020 2:27 PM PRUNER Height - - Body Mass Index 24.12 08/05/2020 2:12 PM PRUNER documented in this encounter Progress Notes Oneil [...] file Gets together: Not on file Attends religion service: Not on file Active member of [...] Trigger Finger Release right middle finger at [facility] on 09/13/2020. I have discussed the [...] expressed understanding and is agreeable to theplan. ER documented in this encounter Plan of Treatment [...] Phone Address Typ e / Group Dates [facility] [id number] 2018-aSw [facility]/AA nt RP TMHP MEDICAID OF [id number] 2019-Saw [phone] [facility] [phone] [place] [address] [phone] (Work) documented as of this encounter
--- OUTSIDE RECORDS SUMMARY | 2020-09-06 12:52 | XMS REPORT | Summary of Care ---
:1945 Author Organization [facility] Address [address] [place] [address] Care Team Providers Name Role Phone Kendrick Amaya Primary Care Provider Reason for Visit Reason Comments Rx Concern/Question Encounter Details Date Type Department Care Team Description 08/31/2020 Telephone [facility] Orthopaedic Sushma Cummings, PAC Rx Concern/Question Surgery- [place] [address] [facility], [facility] [place] [phone] Allergies No Known Allergiesdocumented as of this encounter (statuses as of 09/01/2020) Medications Medication Sig Dispensed Refills Start Date [...] of . follow package right hand directions meloxicam (MOBIC) 7.5 mg Take 1 tablet by 30 tablet 0 09/01/19 21 Active tablet mouth daily. documented as of this encounter (statuses as of 09/01/2020) Active Problems Problem Noted Date Trigger middle finger of right hand 08/31/2020 Overview: Added automatically from request for rajat chery [id number] documented as of this encounter (statuses as of 09/01/2020) Social History Tobacco Use Types Packs/Day Years Used Date Current Every Day Smoker Smokeless Tobacco: Never Used Alcohol Use Drinks/Week oz/Week Comments Yes Sex Assigned at Date Recorded Not on file COVID-19 Exposure Response Date Recorded In the last month, have you been in contact with No / Unsure 08/25/2020 2:22 PM [employer] someone who was confirmed or suspected to have Coronavirus / COVID-19? documented as of this encounter Last Filed Vital Signs Not on filedocumented in this encounter Miscellaneous Notes Telephone Encounter - Marybeth Schneider MA - 09/01/2020 12:33 PM CSTMedication sent to pharmacy on file. Marybeth Schneider MA 09/01/2020 12:33 PM elephone Encounter - Raffaele Cummings PAC - 08/31/2020 3:00 PM CSTMobic 7.5 mg one by mouth daily #30 zero refills elephone Encounter - Kayleigh Rosas - 08/31/2020 2:11 PM CSTPatient was seen 08-25-20 for Trigger middle finger of right hand. Patient is requesting pain medication. documented in this encounter Plan of Treatment Date Type Specialty Care Team Description 09/13/2020 Hospital Encounter Surgery Oneil Esquivel Tri gger middle finger of right hand [address] [place] [phone] 09/13/2020 Surgery Surgery Oneil Esquivel TRIGGER F INGER RELEASE MD [address] [place] [phone] Health Maintenance Due Date Last Done Comments [...] Phone Address Typ e / Group Dates [facility] MEDICAID OF [id number] 2019-Saw [phone] Med icaid [place] nt [id number] [place] [address] [facility] [id number] 2018-Saw [facility] nt RP documented as of this encounter
--- OUTSIDE RECORDS SUMMARY | 2020-09-06 12:52 | XMS REPORT | Summary of Care ---
:1945 [address] [facility] Address [address] [place] [address] Care Team Providers Name Role Phone Kendrick Amaya Primary Care Provider Encounter Details Date Type Department Care Team Description 08/25/[address] [facility] Doctor Unassigned, No [address] [facility] [place] [address] [address] [place] [address] Allergies No Known Allergiesdocumented as of this encounter (statuses as of 09/02/2020) Medications Medication Sig Dispensed Refills Start Date [...] as of this encounter (statuses as of 09/02/2020) Active Problems Problem Noted Date Trigger middle finger of right hand 08/31/2020 Overview: Added automatically from request for rajat chery [id number] documented as of this encounter (statuses as of 09/02/2020) Social History Tobacco Use Types Packs/Day Years Used Date Current Every Day Smoker Smokeless Tobacco: Never Used Alcohol Use Drinks/Week oz/Week Comments Yes Sex Assigned at Date Recorded Not on file COVID-19 Exposure Response Date Recorded In the last month, have you been in contact with No / Unsure 08/25/2020 2:22 PM TONGER someone who was confirmed or suspected to have Coronavirus / COVID-19? documented as of this encounter Last Filed Vital Signs Not on filedocumented in this encounter Plan of Treatment Date Type Specialty Care Team Description 09/13/2020 Hospital Encounter Surgery Fadi Esquivel MD Trigger middle finger [address] [place] [address] 09/13/2020 Anesthesia Event Surgery Juan M Leal C [address] [phone] 09/13/2020 Surgery Surgery Oneil Esquivel MD TRIGGER FINGER RELEASE [address] [place] [address] Health Maintenance Due Date Last Done Comments [...] Completed 09/03/2008 documented as of this encounter Procedures Procedure Name Priority Date/Time Associated Diagnosis Comme nts DSU PRE-OP Routine 08/25/2020 12:01 AM TONGER documented in this encounter Results Not on filedocumented in this encounter Insurance Payer Benefit Plan Subscriber ID Effective Phone Address Typ e / Group Dates [facility] MEDICAID OF [id number] 2019-Saw [phone] Med icaid [place] nt [id number] [place] [address] [facility] [id number] 2018-Saw [facility]/ nt RP documented as of this encounter
[2020-09-06 14:03] LABS: Absolute Lymphocytes (CBC) 1.4 K/uL (0.7-4.9); Basophils % 0.6 % (0-1.3); Hematocrit 42.4 % (36.0-45.0); Lymphocytes % 23.4 % (15.3-44.8); RBC Red Blood Cell Count 4.45 M/uL (3.86-4.86)
[2020-09-06 14:05] LABS: Protime INR 0.93
[2020-09-06 14:27] LABS: ALT/SGPT 14 U/L (12-78); AST/SGOT 12 U/L (15-37); Albumin 3.7 g/dL (3.4-5.0); Alkaline Phosphatase 101 U/L (45-117); BUN Blood Urea Nitrogen 6 mg/dL (7-18); Bicarbonate 29 mmol/L (21-32); Bilirubin Direct 0.2 mg/dL (0-0.2); Bilirubin Total 0.8 mg/dL (0.2-1.0); Glucose Level 98 mg/dL (74-106); Magnesium 2.2 mg/dL (1.8-2.4); NT PRO-BNP 148 pg/mL (<125); Potassium 3.5 mmol/L (3.5-5.1); Protein, Total 6.9 g/dL (6.4-8.2); Sodium Level 133 mmol/L (136-145); Troponin (Emerg Dept Use Only) < 0.02 ng/mL (0.0-0.045)
--- NOTE | 2020-09-06 15:04 | RAD REPORT ---
EXAM DESCRIPTION: Kailash Single View09/06/2020 2:51 pm CLINICAL HISTORY: Shortness of breath COMPARISON: May 2020 FINDINGS: The lungs appear clear of acute infiltrate. The heart is mildly enlarged IMPRESSION: No acute abnormalities displayed
[2020-09-06] MEDS ORDERED: LORazepam 2 MG/ML VIAL ONE (15:19)
--- NOTE | 2020-09-06 16:37 | ER ---
Nurse's Notes [facility] Name: Trisha Senior Age: 75 yrs Sex: Female : 1945 Arrival Date: 09/06/2020 Time: 12:51 Bed 15 Private MD: Diagnosis: Trigger finger;Urinary tract infection, site not specified Presentation: 09/06 13:14 Chief complaint: Patient states: had a sudden onset of numbness to her right arm iw yesterday around 8 pm, it's also tingling, started in right hand and up to right elbow, also thinks she has UTI bc she isn't feeling good and feels bloated. Coronavirus screen: At this time, the client does not indicate any symptoms associated with coronavirus-19. Ebola Screen: Patient negative for fever greater than or equal to 101.5 degrees Fahrenheit, and additional compatible Ebola Virus Disease symptoms Patient denies exposure to infectious person. Patient denies travel to an Ebola-affected area in the 21 days before illness onset. No symptoms or risks identified at this time. Initial Sepsis Screen: Does the patient meet any 2 criteria? No. Patient's initial sepsis screen is negative. Does the patient have a suspected source of infection? No. Patient's initial sepsis screen is negative. Risk Assessment: Do you want to hurt yourself or someone else? Patient reports no desire to harm self or others. Onset of symptoms was September 05, 2020. 13:14 Method Of Arrival: Wheelchair iw 13:14 Acuity: DAVID 3 iw Historical: - Allergies: 13:18 No Known Allergies; iw - PMHx: 13:18 Anxiety; COPD; iw - PSHx: 13:18 Tubal ligation; Knee surgery; iw - Immunization history:: Adult Immunizations unknown. - Social history:: Smoking status: unknown. Screenin:27 Abuse screen: Denies threats or abuse. Nutritional screening: No deficits noted. jd3 Tuberculosis screening: No symptoms or risk factors identified. VAN Screening: Arm Drift: Patient shows no arm weakness. Patient is VAN negative. Fall Risk Ambulatory Aid- None/Bed Rest/Nurse Assist (0 pts). Gait- Normal/Bed Rest/Wheelchair (0 pts) Mental Status- Oriented to own ability (0 pts). Total Whitfield Fall Scale indicates No Risk (0-24 pts). Assessment: 13:26 General: Appears in no apparent distress. uncomfortable, Behavior is calm, cooperative, jd3 appropriate for age, Reports "I feel like just one dose of Ativan would fix all this. I have a lot of anxiety.". Pain: Complains of pain in right arm Quality of pain is described as tingling. Neuro: Level of Consciousness is awake, alert, obeys commands, Oriented to person, place, time, situation, Options Advisor are equal bilaterally Moves all extremities. Full function Gait is steady, Speech is normal, Facial symmetry appears normal, Pupils are PERRLA, Intact. Cardiovascular: Denies chest pain, Heart tones S1 S2 present Capillary refill < 3 seconds Patient's skin is warm and dry. Respiratory: Airway is patent Respiratory effort is even, unlabored, Respiratory pattern is regular, symmetrical, Breath sounds are clear bilaterally. Denies cough, shortness of breath. GI: No signs and/or symptoms were reported involving the gastrointestinal system. : No signs and/or symptoms were reported regarding the genitourinary system. EENT: No signs and/or symptoms were reported regarding the EENT system. Derm: Skin is intact, Skin is dry, Skin is normal, Skin temperature is warm. Musculoskeletal: Circulation, motion, and sensation intact. Range of motion: intact in all extremities. 14:25 Reassessment: Patient appears in no apparent distress at this time. No changes from jd3 previously documented assessment. Patient and/or family updated on plan of care and expected duration. Pain level reassessed. Patient is alert, oriented x 3, equal unlabored respirations, skin warm/dry/pink. 15:00 Reassessment: Patient appears in no apparent distress at this time. Patient and/or jd3 family updated on plan of care and expected duration. Pain level reassessed. Patient is alert, oriented x 3, equal unlabored respirations, skin warm/dry/pink. pt reporting anxiety, provider notified. 16:37 Reassessment: Patient appears in no apparent distress at this time. Patient and/or jd3 family updated on plan of care and expected duration. Pain level reassessed. Patient is alert, oriented x 3, equal unlabored respirations, skin warm/dry/pink. awaiting disposition. 16:49 Reassessment: Patient appears in no apparent distress at this time. Patient and/or jd3 family updated on plan of care and expected duration. Pain level reassessed. Patient is alert, oriented x 3, equal unlabored respirations, skin warm/dry/pink. assisted pt out of ER. pt with even and steady gait. Vital Signs: 13:14 BP 144 / 91; Pulse 98; Resp 16; Temp 97.7; Pulse Ox 97% on R/A; Weight 63.5 kg; Height iw 5 ft. 6 in. (167.64 cm); 14:23 BP 170 / 99; Pulse 89; Resp 17 S; Pulse Ox 97% on R/A; jd3 15:38 BP 154 / 62; Pulse 82; Resp 17 S; Pulse Ox 98% on R/A; jd3 16:37 BP 144 / 82; Pulse 94; Resp 17 S; Pulse Ox 97% on R/A; jd3 13:14 Body Mass Index 22.60 (63.50 kg, 167.64 cm) iw ED Course: 12:51 Patient arrived in ED. ag5 13:17 Triage completed. iw 13:18 Arm band placed on. iw 13:19 Madi Perez, RN is Primary Nurse. jd3 13:28 Patient has correct armband on for positive identification. Bed in low position. Call jd3 light in reach. Side rails up X 1. Pulse ox on. NIBP on. 13:29 Dixon Finnegan PA is PHCP. [facility] 13:30 Kolby Escalante MD is Attending Physician. jmm 14:05 Inserted saline lock: 20 gauge in right antecubital area, using aseptic technique. jd3 Blood collected. 14:51 XRAY Chest (1 view) In Process Unspecified. EDMS 16:35 Praveen Jimenez MD is Referral Physician. jmm 16:35 Sami Epps MD is Referral Physician. jmm 16:38 No provider procedures requiring assistance completed. jd3 16:49 IV discontinued, intact, bleeding controlled, No redness/swelling at site. Pressure jd3 dressing applied. Administered Medications: 15:09 Drug: Ativan 1 mg Route: IVP; Site: right antecubital; jd3 15:59 Follow up: Response: No adverse reaction jd3 Outcome: 16:36 Discharge ordered by . jmm 16:49 Discharged to home ambulatory. jd3 16:49 Condition: stable 16:49 Discharge instructions given to patient, Instructed on discharge instructions, follow up and referral plans. medication usage, Demonstrated understanding of instructions, follow-up care, medications, Prescriptions given X 2. 16:49 Patient left the ED. jd3 Addendum: 09/10/2020 09:49 Addendum: Culture Results: Positive urine culture. No further action required. Bacteria e b sensitive to prescribed antibiotic. Signatures: Dispatcher [employer] EDMS Dixon Finnegan PA PA jmm Williams, Irene, Madi Rudd RN, RN RN jAwa Aragon, Maya ag5 Corrections: (The following items were deleted from the chart) 09/06 13:29 13:26 General: Appears in no apparent distress. uncomfortable, Behavior is calm, jd3 cooperative, appropriate for age, jd3 15:11 14:45 Inserted saline lock: 20 gauge in right antecubital area, using aseptic jd3 technique. Blood collected. jd3
--- NOTE | 2020-09-06 16:37 | EDPHYS ---
Physician Documentation [facility] Name: Trisha Senior Age: 75 yrs Sex: Female : 1945 Arrival Date: 09/06/2020 Time: 12:51 Bed 15 Private MD: Kolby Henderson HPI: 09/06 13:34 This 75 yrs old Female presents to ER via Wheelchair with complaints of jmm Breathing Difficulty, Doesn't Feel Right, Numbness Of Arm. 13:34 The patient has shortness of breath at rest. Onset: The symptoms/episode began/occurred jmm gradually. The patient's shortness of breath is aggravated by nothing, is alleviated by nothing. This is a 75 year old female with a history of anxiety, copd. Patient complains of 2 days of pain to the right hand. 4th finger is flexed. Patient also complains of fatigue, malaise. Is concerned she may have a UTI. Denies dysuria, flank pain, abdominal pain. . Historical: - Allergies: 13:18 No Known Allergies; iw - PMHx: 13:18 Anxiety; COPD; iw - PSHx: 13:18 Tubal ligation; Knee surgery; iw - Immunization history:: Adult Immunizations unknown. - Social history:: Smoking status: unknown. ROS: 13:34 Cardiovascular: Negative for chest pain, palpitations, and edema, Respiratory: Negative jmm for shortness of breath, cough, wheezing, and pleuritic chest pain. 13:34 Abdomen/GI: Negative for abdominal pain, nausea, vomiting, diarrhea, and constipation, Back: Negative for injury and pain. 13:34 Constitutional: Positive for fatigue, malaise. 13:34 MS/extremity: Positive for pain. 13:34 All other systems are negative. Exam: 13:34 Constitutional: This is a well developed, well nourished patient who is awake, alert, jmm and in no acute distress. Head/Face: atraumatic. Eyes: EOMI, no conjunctival erythema appreciated ENT: Moist Mucus Membranes Neck: Trachea midline, Supple Chest/axilla: Normal chest wall appearance and motion. Cardiovascular: Regular rate and rhythm. No edema appreciated Respiratory: Normal respirations, no respiratory distress appreciated Abdomen/GI: Non distended, soft Back: Normal ROM Skin: General appearance color normal 13:34 Musculoskeletal/extremity: right 4th finger held in flexion, pain on passive extension. 13:34 Skin: Appearance: Color: normal in color. 13:34 Neuro: Orientation: is normal, Mentation: is normal, Memory: is normal. 13:34 Psych: Behavior/mood is pleasant, cooperative. Vital Signs: 13:14 BP 144 / 91; Pulse 98; Resp 16; Temp 97.7; Pulse Ox 97% on R/A; Weight 63.5 kg; Height iw 5 ft. 6 in. (167.64 cm); 14:23 BP 170 / 99; Pulse 89; Resp 17 S; Pulse Ox 97% on R/A; jd3 15:38 BP 154 / 62; Pulse 82; Resp 17 S; Pulse Ox 98% on R/A; jd3 16:37 BP 144 / 82; Pulse 94; Resp 17 S; Pulse Ox 97% on R/A; jd3 13:14 Body Mass Index 22.60 (63.50 kg, 167.64 cm) iw MDM: 13:34 Patient medically screened. [facility] 16:33 Data reviewed: vital signs, nurses notes. Counseling: I had a detailed discussion with opal the patient and/or guardian regarding: the historical points, exam findings, and any diagnostic results supporting the discharge/admit diagnosis, lab results, radiology results, the need for outpatient follow up, to return to the emergency department if symptoms worsen or persist or if there are any questions or concerns that arise at home. ED course: Patient is alert and non toxic in appearance in the ED. No signs of resp distress. Denies chest pain. Patient is advised to follow up with pcp and otherwise given strict return precautions. Patient understood and agrees with the plan of care. . 09/06 13:37 Order name: Basic Metabolic Panel; Complete Time: 14:29 [facility] 09/06 13:37 Order name: CBC with Diff; Complete Time: 14:20 [facility] 09/06 13:37 Order name: LFT's; Complete Time: 14:29 [facility] 09/06 13:37 Order name: Magnesium; Complete Time: 14:29 [facility] 09/06 13:37 Order name: NT PRO-BNP; Complete Time: 14:29 [facility] 09/06 13:37 Order name: PT-INR; Complete Time: 14:20 [facility] 09/06 13:37 Order name: Troponin (emerg Dept Use Only); Complete Time: 14:29 [facility] 09/06 13:37 Order name: XRAY Chest (1 view); Complete Time: 15:08 [facility] 09/06 13:37 Order name: EKG; Complete Time: 13:38 [facility] 09/06 13:37 Order name: Cardiac monitoring; Complete Time: 14:09 [facility] 09/06 13:37 Order name: EKG - Nurse/Tech; Complete Time: 14:09 [facility] 09/06 15:58 Order name: Urine Dipstick--Ancillary (enter results) bd 09/06 15:59 Order name: Urine Microscopic Only [facility] 09/06 13:37 Order name: IV Saline Lock; Complete Time: 14:01 [facility] 09/06 13:37 Order name: Labs collected and sent; Complete Time: 14:01 [facility] 09/06 13:37 Order name: O2 Per Protocol; Complete Time: 13:45 [facility] 09/06 13:37 Order name: O2 Sat Monitoring; Complete Time: 13:45 [facility] 09/06 13:37 Order name: Urine Dipstick-Ancillary (obtain specimen); Complete Time: 15:54 [facility] Administered Medications: 15:09 Drug: Ativan 1 mg Route: IVP; Site: right antecubital; jd3 15:59 Follow up: Response: No adverse reaction jd3 Disposition: 19:00 Co-signature as Attending Physician, Kolby Escalante MD I agree with the assessment and ele plan of care. Disposition: 09/06/20 16:36 Discharged to Home. Impression: Trigger finger, Urinary tract infection, site not specified. - Condition is Stable. - Discharge Instructions: Dysuria, Trigger Finger, Urinary Tract Infection, Adult. - Prescriptions for Ativan 1 mg Oral Tablet - take 1 tablet by ORAL route every 8 hours As needed; 20 tablet. Keflex 500 mg Oral Capsule - take 1 capsule by ORAL route every 8 hours for 10 days; 30 capsule. - Medication Reconciliation Form, Thank You Letter, Antibiotic Education, Prescription Opioid Use form. - Follow up: Praveen Jimenez MD; When: 2 - 3 days; Reason: Recheck today's complaints, Continuance of care, Re-evaluation by your physician. Follow up: Sami Epps MD; When: 2 - 3 days; Reason: Recheck today's complaints, Continuance of care, Re-evaluation by your physician. Signatures: Dispatcher [employer] EDKolby Mehta MD MD cha Mickail, Joel, PA PA jmm Williams, Irene, RN RN iw Davies, Jonathon, RN RN jd3 Corrections: (The following items were deleted from the chart) 16:49 16:36 09/06/2020 16:36 Discharged to Home. Impression: Trigger finger; Urinary tract jd3 infection, site not specified. Condition is Stable. Forms are Medication Reconciliation Form, Thank You Letter, Antibiotic Education, Prescription Opioid Use. Follow up: Praveen Jimenez; When: 2 - 3 days; Reason: Recheck today's complaints, Continuance of care, Re-evaluation by your physician. Follow up: Sami Epps; When: 2 - 3 days; Reason: Recheck today's complaints, Continuance of care, Re-evaluation by your physician. opal
[2020-09-06 16:54] VITALS: TEMP 97.7
[2020-09-06 16:58] VITALS: BP 144/82; O2SAT 97
[2020-09-06 17:11] LABS: Urine Bacteria >50 /HPF (<20)
[2020-09-06 17:18] LABS: Urine Blood TRACE (NEG); Urine Glucose NEGATIVE (NEG); Urine Protein NEGATIVE (NEG); Urine Specific Gravity 1.015 (1.005-1.030)
--- NOTE | 2020-09-07 17:15 | EKG ---
Test Date: 2020-09-06 Test Time: 17:36:07 Reconsignment Clerk: CECILY MEASUREMENT RESULTS: Intervals: Rate: 133 [place]: 138 QRSD: 74 QT: 308 QTc: 458 [place]: P: 61 [place]: 138 QRS: 56 T: 57 INTERPRETIVE STATEMENTS: Sinus tachycardia Possible Left atrial enlargement Nonspecific ST and T wave abnormality Abnormal ECG Compared to ECG 07/17/2020 09:37:07 ST (T wave) deviation now present Sinus rhythm no longer present Electronically Signed On 09-07-20 17:12:59 [employer]INE [employer] TECHNICIAN by Myles Lorenzo
== END 2020-09-06 16:49 | disposition home or self-care (01) ==
LOC: ER 12:47
DX: N39.0 Urinary tract infection, site not specified (principal); M65.341 Trigger finger, right ring finger; F41.9 Anxiety disorder, unspecified; J44.9 Chronic obstructive pulmonary disease, unspecified; R06.02 Shortness of breath
CPT/HCPCS: 36415; 71045; 80048; 80076; 81003; 81015; 83735; 83880; 84484; 85025; 85610; 87077; 87086; 87088; 87186; 93005; 96374; 99284

== ENCOUNTER 2020-09-06 17:28 | Emergency (ER) | payer OTHER ==
--- OUTSIDE RECORDS SUMMARY | 2020-09-06 17:29 | XMS REPORT | Continuity of Care Document ---
:1945 Author Organization [employer] Care Team Providers Name Role Phone [employer] Unavailable Un available Problems Problem Status Onset [...] PROCEDURE: LUMBAR SPINE MAGNETIC RESONANCE IMAGI 12/02/2016 [facility] contrast MRI CLINICAL INDICATION: M54.5. Low back [...] without re tropulsion estimated at 37%. 3. [place] spondylosis and facet arthropathy. 4. Multilevel posterior [...] Location Location Encounter Encounter Reason Attending ADM ME Stat Source Details Type Number For Provider Date Date Visit [facility] Outpatient [id number] Lonnie 12/02 12/03 RICHY Abraham /2016 [facility] Outpatient [id number] KARLY 10/16 [facility] /2018 Jose Procedures No Data Provided for This Section Assessment and Plan No Data Provided for This Section Plan of Care No Data Provided for This Section Social History Social History Date Source No data available for this 12/03/2016 [facility] section Family History No Data Provided for This Section Advance Directives No Data Provided for This Section Functional Status No Data Provided for This Section
--- OUTSIDE RECORDS SUMMARY | 2020-09-06 17:30 | XMS REPORT | Continuity of Care Document ---
:1945 Author Organization [facility] Address [address] [place] [address] Care Team Providers Name Role Phone Edwin Esquivel MD Attending Clinician Nay Paez Attending Clinician Doctor Unassigned, Name Attending Clinician Unavailable Doug Abraham Attending Clinician Problems Condition Condition Condition Status Onset Resolution Last Treating Co mments Source Name Details Category Date Date Treatment Clinician Date M54.5 Diagnosis Active 2016-12-02 Mem oria M53.3 4-10 13:08:00 l M54.5 00:00: Jose M53.3 00 Active 11/27/2016 [facility] LOW BACK Diagnosis Active 2016-12-02 M emoria PAIN 13:08:00 l LOW BACK [place] PAIN Active [facility] SACROCOCCY Diagnosis Active 2016-12-02 Memoria GEAL 13:08:00 l DISORDERS, [place] NOT SACROCOCCY ELSEWHERE GEAL DISORDERS, NOT ELSEWHERE Active [facility] Allergies, Adverse Reactions, Alerts This patient has no known allergies or adverse reactions. Social History Social Habit Start Date Stop Date Quantity Comments Source Social History 2016-12-03 2016-12-03 [facility] christofer 04:59:00 04:59:00 Medications This patient has no known medications. Procedures This patient has no known procedures. Encounters Start End Encounter Admission Attending Care Care Encounter Source Date/Time Date/Time Type Type Clinicians Facility Department ID 2020-08-31 2020-08-31 Prep For ADAM Esquivel [id number] 00:00:00 00:00:00 Surgery Oneil Pineda [facility] [id number] Surgical [id number] Specialti [id number] [address] [place] 2020-08-31 2020-08-31 Telephone Zoila [facility] [id number] 00:00:00 00:00:00 [facility] [id number] Surgical [id number] Specialti [id number] [address] [place] 2020-08-25 2020-08-25 Office Alvin [facility] [id number] 1949 14:23:40 14:48:55 Visit Oneil Pineda [facility] [id number] Surgical [id number] Specialti [id number] [address] [place] 2020-08-25 2020-08-25 Orders Doctor SERVANDO [id number] 00:00:00 00:00:00 Only Unassigned, BRIGETTE [id number] [facility] [id number] 2016-12-02 2016-12-02 Outpatient CHRISTINA Abraham [id number] 12:58:00 23:59:00 Lonnie Genao Results This patient has no known results.
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
[2020-09-06] MEDS ORDERED: NA CHLORIDE 0.9% 500 ML ONE (18:50)
[2020-09-06] MEDS ORDERED: TETANUS & DIPHTHERIA TOX,ADULT 0.5 ML VIAL ONE (18:51)
[2020-09-06] MEDS ORDERED: CEFAZOLIN/SWI 1gm 1 GM/10 ML SYR ONE (18:51)
--- NOTE | 2020-09-06 19:02 | RAD REPORT ---
EXAM DESCRIPTION: Kailash Single View09/06/2020 6:47 pm CLINICAL HISTORY: Chest pain COMPARISON: none FINDINGS: The lungs appear clear of acute infiltrate. The heart is mildly enlarged . IMPRESSION: No acute abnormalities displayed
--- NOTE | 2020-09-06 19:06 | RAD REPORT ---
EXAM DESCRIPTION: RAD - Shoulder Right 2 View - 09/06/2020 6:46 pm CLINICAL HISTORY: Right shoulder pain FINDINGS: Comminuted fracture involves the right humeral head/neck which is mildly to moderately dis placed. Angulation is present at the fracture site. No dislocation
--- NOTE | 2020-09-06 19:08 | RAD REPORT ---
EXAM DESCRIPTION: RAD - Forearm Right - 09/06/2020 6:45 pm CLINICAL HISTORY: Right arm pain FINDINGS: No acute fracture is seen. Old fracture involves the distal radius.
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
--- NOTE | 2020-09-06 19:10 | RAD REPORT ---
EXAM DESCRIPTION: RAD - Wrist Left 3 View - 09/06/2020 6:46 pm CLINICAL HISTORY: Left wrist pain status post injury FINDINGS: Impacted fracture distal radius. Mildly displaced fracture distal ulna. Bony density adjac ent to the distal ulna probably chronic No dislocation
--- NOTE | 2020-09-06 19:11 | RAD REPORT ---
EXAM DESCRIPTION: Jett Foreman Left09/06/2020 6:45 pm CLINICAL HISTORY: Left leg pain status post injury FINDINGS: No fracture is seen
--- NOTE | 2020-09-06 19:15 | RAD REPORT ---
EXAM DESCRIPTION: RAD - Tib Fib Right - 09/06/2020 6:47 pm CLINICAL HISTORY: Right leg pain FINDINGS: Sclerosis involves the lateral tibial plateau probably secondary to an impacted fracture. Age is indeterminate and should be correlated clinically. Curvilinear bony density lies adjacent to the lateral malleolus which may represent an acute avulsion fracture.
[2020-09-06 19:40] LABS: Absolute Lymphocytes (CBC) 0.9 K/uL (0.7-4.9); Basophils % 0.1 % (0-1.3); Hematocrit 36.7 % (36.0-45.0); Lymphocytes % 6.1 % (15.3-44.8); MPV 7.5 fL (7.6-11.3); RBC Red Blood Cell Count 3.81 M/uL (3.86-4.86)
[2020-09-06 19:43] LABS: Protime INR 1.02
[2020-09-06 19:52] LABS: BUN Blood Urea Nitrogen 5 mg/dL (7-18); Bicarbonate 27 mmol/L (21-32); Glucose Level 154 mg/dL (74-106); Sodium Level 133 mmol/L (136-145)
[2020-09-06 20:08] LABS: ALT/SGPT 18 U/L (12-78); AST/SGOT 25 U/L (15-37); Alkaline Phosphatase 86 U/L (45-117); Bilirubin Direct 0.1 mg/dL (0-0.2); Bilirubin Total 0.7 mg/dL (0.2-1.0); Lipase 39 U/L (73-393); Magnesium 1.9 mg/dL (1.8-2.4); NT PRO-BNP 167 pg/mL (<125); Protein, Total 5.7 g/dL (6.4-8.2); Troponin (Emerg Dept Use Only) < 0.02 ng/mL (0.0-0.045)
[2020-09-06 20:50] LABS: Blood Morphology Comment NOT SEEN (NOT SEEN); Platelet Estimate ADEQ; White Blood Cell Scan OK (OK)
[2020-09-06 21:15] VITALS: BP 103/71; O2SAT 96
[2020-09-06 21:16] VITALS: TEMP 97.8
--- NOTE | 2020-09-07 17:16 | EKG ---
Test Date: 2020-09-06 Test Time: 14:02:37 Reduction Furnace Operator: ALECIA MEASUREMENT RESULTS: Intervals: Rate: 84 AR: 148 QRSD: 74 QT: 376 QTc: 444 [place]: P: 55 AR: 148 QRS: 56 T: 57 INTERPRETIVE STATEMENTS: Normal sinus rhythm Normal ECG Compared to ECG 07/17/2020 09:37:07 No significant changes Electronically Signed On 09-07-20 17:13:06 HIGH SCHOOL GUIDANCE COUNSELOR by Myles Lorenzo
== END 2020-09-06 20:56 | disposition short-term general hospital (02) ==
LOC: ER 17:28
DX: S52.532A Colles' fracture of left radius, initial encounter for closed fracture (principal); S42.231A 3-part fracture of surgical neck of right humerus, initial encounter for closed fracture; S22.088A Other fracture of T11-T12 vertebra, initial encounter for closed fracture; S06.0X9A Concussion with loss of consciousness of unspecified duration, initial encounter; S81.811A Laceration without foreign body, right lower leg, initial encounter; S22.32XA Fracture of one rib, left side, initial encounter for closed fracture; S52.602A Unspecified fracture of lower end of left ulna, initial encounter for closed fracture; M79.605 Pain in left leg; V43.52XA Car driver injured in collision with other type car in traffic accident, initial encounter; Z23 Encounter for immunization; F17.210 Nicotine dependence, cigarettes, uncomplicated; J44.9 Chronic obstructive pulmonary disease, unspecified; F41.9 Anxiety disorder, unspecified
CPT/HCPCS: 93005; 85025; 80048; 36415; 80320; 83735; 85610; 82565; 80076; 85730; 84484; 83690; 83880; 70450; 72125; 71260; 74177; 71045; 73090; 73030; 73110; 73590 ×2; 90471; 90714; 96374; 99285; Q9967; J0690; J7040